=== PATIENT | female | born 1965 | race Two or more races ===

== ENCOUNTER → 2024-04-15 | Outpatient (CLI) | payer MEDICAID | END | disposition home or self-care (01) | LOC: XYW 10:06 | PROVIDERS: ATTEND Podiatrist | DX: I70.203 Unspecified atherosclerosis of native arteries of extremities, bilateral legs (principal); I77.9 Disorder of arteries and arterioles, unspecified | CPT/HCPCS: 93925 ==

== ENCOUNTER 2025-09-21 11:20 | Inpatient (IN) | payer MEDICAID ==
[~2025-09-21] VITALS: Ht 172.7 cm; Wt 126.8 kg
[~2025-09-21 11:20] MED LIST: PRED20TA2 PO
--- NOTE | 2025-09-21 11:40 | ECG ---
[facility] Test Date: 2025-09-21 Test Time: 11:28:01 Pat Name: ASHA GUY Department: [facility] ED Patient ID: [id number] Room: [address] [place] [address] Gender: F Rubber Block Layer: margarita : 1965 Requested By: DESTINY MERCADO Order Number: [id number] Reading MD: Christian Wilkerson Measurements Intervals [place] Rate: 98 P: -1 MO: 127 QRS: -28 QRSD: 85 T: 26 QT: 338 QTc: 432 Interpretive Statements Sinus rhythm Probable left atrial enlargement Inferior infarct, old Anterior infarct, old Electronically Signed On 09-22-2025 10:59:03 PST by Christian Wilkerson Please click the below link to view image of tracing.
--- NOTE | 2025-09-21 11:54 | ED.PDOC ---
GI ASSESSMENT HPI Comments This is a 60-year-old female brought in by ambulance with past medical history of diabetes type 1, hypertension, and hyperlipidemia presenting to the emergency department for chief complaint of GI bleed. EMS reports, patient is coming from home where family called due to patient being found down on the ground and covered in blood, following not hearing form the patient in approximately x2 days. Per EMS, upon arrival to the scene home was found to be filthy and patient appeared lethargic and unkept; EMS endorses ADS report being filled. Upon arrival to the emergency department, patient is hypotensive with a systolic blood pressure of 67 and has dark red feces between her lower extremities. Patient is a poor historian and no other past medical history, symptoms, or modifiers are obtainable at this time. Chief Complaint: GI Bleed Time Seen by MD: 11:45 Reviewed Notes: Nurses Notes, Manager School Notes, Medications, Allergies Allergies: Coded Allergies: No Known Drug Allergy (Verified Allergy, Unknown, 08/07/24) Home Meds Active Scripts Prednisone (Prednisone) 20 Mg Tab, 40 MG PO DAILY for 5 Days, #10 MG Prov:MARIO HUNT MD 07/06/24 Information Source: Patient, Emergency Med Personnel Mode of Arrival: EMS Timing: Days Duration: Since onset Prehospital treatment: None Quality: None Vomitus: None Stool: Other (bloody) Severity: Moderate Recent: None Recent Hx of: None Pain Location: None Modifying Factors: Nothing Associated sign and symptoms: Blood in Stool Past Medical History PAST MEDICAL HISTORY: DM, High Lipids, HTN Surgical History: Cholecystectomy, Hysterectomy CREDIT OFFICER History: Denies all CREDIT OFFICER Hx Family History Family History: Unknown Social History Smoker: Non-Smoker Alcohol: Denies ETOH Use Drugs: Denies Drug Use Lives In: Home Constitutional: denies: chills, diaphoresis, fatigue, fever, malaise, sweats, weakness, others EENTM: denies: blurred vision, double vision, ear bleeding, ear discharge, ear drainage, ear pain, ear ringing, eye pain, eye redness, hearing loss, mouth pain, mouth swelling, nasal discharge, nose bleeding, nose congestion, nose pain, photophobia, tearing, throat pain, throat swelling, voice changes, others Respiratory: denies: cough, hemoptysis, orthopnea, SOB at rest, shortness of breath, SOB with excertion, stridor, wheezing, others Cardiovascular: denies: chest pain, dizzy spells, diaphoresis, Dyspnea on exertion, edema, irregular heart beat, left arm pain, lightheadedness, palpitations, PND, syncope, others Gastrointestinal: denies: abdomen distended, abdominal pain, blood streaked bowels, constipated, diarrhea, dysphagia, difficulty swallowing, hematemesis, melena, nausea, poor appetite, poor fluid intake, rectal bleeding, rectal pain, vomiting, others Genitourinary: denies: abnormal vagina bleeding, burning, dyspareunia, dysuria, flank pain, frequency, hematuria, incontinence, pain, , vagina discharge, urgency, others Neurological: denies: dizziness, fainting, headache, left sided numbness, left sided weakness, numbness, paresthesia, pre-existing deficit, right sided numbness, right sided weakness, seizure, speech problems, tingling, tremors, w eakness, others Musculoskeletal: denies: back pain, gout, joint pain, joint swelling, muscle pain, muscle stiffness, neck pain, others Integumetry: denies: bruises, change in color, change in hair/nails, dryness, laceration, lesions, lumps, rash, wounds, others Allergic/Immunocompromised: denies: Difficulty Healing, Frequent Infections, Hives, Itching, others Hematologic/Lymphatic: denies: anemia, blood clots, easy bleeding, easy bruising, swollen glands, others All Other Systems: Reviewed and Negative Physical Exam General Appearance: Moderate Distress, Obese, Other (Poor hygiene with significant amount of stool and blood over the lower extremities) HEENT: Pale Conjuntivae (L), Pale Conjuntivae (R), Pharynx Normal, TMs Normal Neck: Full Range of Motion, Non-Tender, Normal, Normal Inspection Respiratory: Chest Non-Tender, Decreased Breath Sounds, No Accessory Muscle Use, Respiratory Distress Cardiovascular: No Edema, No JVD, No Murmur, No Gallop, Tachycardia Breast Exam: Deferred Gastrointestinal: No Organomegaly, Non Tender, No Pulsatile Mass, Normal Bowel Sounds, Soft Genitalia: Deferred Pelvic: Deferred Rectal: Deferred Extremities: No calf tenderness, Normal capillary refill, Pedal edema Musculoskeletal : Apperance: Normal 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 Was a procedure done?: No GI differential Dx Differential Diagnosis: Gastritis/PUD, Gastroenteritis, GI hemorrhage, Inflammatory BD X-Ray, Labs, Meds, VS Vital Signs Date Time Temp Pulse Resp B/P (MAP) Pulse Ox O2 Delivery O2 Flow Rate FiO2 09/21/25 16:00 59/40 09/21/25 14:41 37/22 09/21/25 12:53 Room Air* 0 21 09/21/25 11:54 98 09/21/25 11:49 96.3 97 17 133/109 (117) 99 96.3 09/21/25 11:28 98 09/21/25 11:20 97.6 98 18 67/ 94 97.6 Lab Test 09/21/25 16:24 09/21/25 15:40 09/21/25 15:09 Range/Units Troponin I High Sensitivity Pending 171 *H </=34 ng/L Blood Gas Specimen Type Arterial Blood Gas Sample Site Right radial Blood Gas Patient Temperature 37.0 Arterial Blood Date Drawn [id number] Arterial Blood pH 7.246 *L 7.350-7.450 Arterial Blood Partial Pressure CO2 19.6 *L 32.0-45.0 mmHg Arterial Blood Partial Pressure O2 104.8 83.0-108.0 mmHg Arterial Blood HCO3 8.3 L 21.0-28.0 mmol/L Arterial Blood Oxygen Saturation 97.1 94.0-98.0 % Arterial Blood Base Excess -16.0 L -2.0-3.0 mmol/L Arterial Blood Oxyhemoglobin 96.0 94.0-98.0 % Arterial Blood Carboxyhemoglobin 0.3 L 0.5-1.5 % Arterial Blood Methemoglobin 0.8 0.0-1.5 % Aristeo Test Yes Blood Gas Total Hemoglobin 19.20 *H 12.0-16.0 g/dL Blood Gas Modality Room air FiO2 % 21.0 Blood Gas Critical Value Read Back yes Blood Gas Notified Whom Blood Gas Notified Time [id number] Blood Gas Notified By senior systems developer eliz White Blood Count 26.4 H 4.4-10.8 10^3/uL Red Blood Count 5.53 H 4.0-5.20 10^6/uL Hemoglobin 17.1 H 12.2-16.2 g/dL Hematocrit 53.9 H 36.0-46.0 % Mean Corpuscular Volume 97.5 80.0-100.0 fL Mean Corpuscular Hemoglobin 30.9 28.0-32.0 pg Mean Corpuscular Hemoglobin Concent 31.7 L 32.0-36.0 g/dL Red Cell Distribution Width 17.5 H 11.8-14.3 % Platelet Count 176 140-450 10^3/uL Mean Platelet Volume 11.6 H 6.9-10.8 fL Neutrophils (%) (Auto) 89.3 H 37.0-80.0 % Lymphocytes (%) (Auto) 5.1 L 10.0-50.0 % Monocytes (%) (Auto) 5.5 0.0-12.0 % Eosinophils (%) (Auto) 0.0 0.0-7.0 % Basophils (%) (Auto) 0.1 0.0-2.0 % Neutrophils # (Auto) 23.6 H 1.6-8.6 10 ^3/uL Lymphocytes # (Auto) 1.3 0.4-5.4 10 ^3/uL Monocytes # (Auto) 1.5 H 0-1.3 10 ^3/uL Eosinophils # (Auto) 0 0-0.8 10 ^3/uL Basophils # (Auto) 0 0-0.2 10 ^3/uL Nucleated Red Blood Cells 0.8 % Prothrombin Time 12.5 H 9.3-11.8 sec Prothrombin Time INR 1.20 H 0.9-1.15 Activated Partial Thromboplast Time 25.1 24.5-34.5 SEC Sodium Level 162 *H 136-145 mmol/L Potassium Level 6.1 *H 3.5-5.1 mmol/L Chloride Level 117 H 98-107 mmol/L Carbon Dioxide Level 14 L 20-31 mmol/L Anion Gap 31 H 5-15 Blood Urea Nitrogen 168 *H 9-23 mg/dL Creatinine 10.81 *H 0.550-1.02 mg/dL Glomerular Filtration Rate Calc 4 >90 mL/min BUN/Creatinine Ratio 15.5 10.0-20.0 Serum Glucose 112 H 74-106 mg/dL Lactic Acid Level 7.2 *H 0.4-2.0 mmol/L Calcium Level 10.6 H 8.7-10.4 mg/dL Creatine Kinase 948 H 34-145 U/L Plasma/Serum Blood Alcohol < 3.0 <10 mg/dL Current Medications Medications (Trade) Dose Ordered Sig/Merry Route Start Time Stop Time Status Last Admin Sodium Chloride 1,000 ml @ 1,000 mls/hr Q1H ONCE IV 09/21/25 11:45 09/21/25 12:44 DC 09/21/25 13:32 Pantoprazole Sodium (Protonix) 40 mg ONCE ONCE IV 09/21/25 11:45 09/21/25 11:46 DC 09/21/25 13:32 Norepinephrine Bitartrate 250 ml @ 3.75 mls/hr Q24H IV 09/21/25 14:15 09/21/25 14:41 Calcium Gluconate/ Sodium Chloride 50 ml @ 100 mls/hr ONCE ONCE IV 09/21/25 16:30 09/21/25 16:59 DC 09/21/25 16:50 Dextrose 50 ml ONCE ONCE IV 09/21/25 16:30 09/21/25 16:31 DC 09/21/25 16:49 Insulin Human Regular (InsuLIN R) 5 units ONCE ONCE IV 09/21/25 16:30 09/21/25 16:31 DC 09/21/25 16:48 Sodium Bicarbonate 50 ml ONCE ONCE IV 09/21/25 16:30 09/21/25 16:31 DC 09/21/25 16:49 Sodium Bicarbonate 50 ml ONCE ONCE IV 09/21/25 16:30 09/21/25 16:31 DC 09/21/25 16:50 IV Hep-Lock was established The chest x-ray was done after the central line was placed. The patient remains hypotensive. The patient has been started on norepinephrine for hypotension. The patient's oxygen saturation is around 92-93% An ABG was done with a pH of 7.246/pCO2 of 19 and a PO2 of 104 The patient has a potassium that has elevated at 6.1 The BUN is 168 and the creatinine is 10.81 A Yap catheter was placed with no significant urine output. We are hydrating the patient with normal saline boluses. For the hyperkalemia, the patient was started on sodium bicarbonate, dextrose, insulin and calcium chloride Patient's CBC shows a white blood cell count of 26.4. The initial troponin level is 171 The patient will be admitted to the ICU. Images Reviewed?: Images reviewed and evaluated by me Time of 1ST Reevaluation: 12:15 Reevaluation 1ST: Unchanged Patient Education/Counseling: Diagnosis, Treatment Family Education/Counseling: No Family Present SEPSIS Sepsis Screen Date sepsis recognized/suspect: Sep 21, 2025 Time Sepsis recognized/suspect: 1137 Recent Procedure: No On Antibiotic Therapy: No Respiratory Rate >20: No Heart Rate >90: No Temp<36 C (96.8 F) or >38.3 C: No SBP <90 or MAP <65 mmHG: Yes New Acute Mental Status Change: No Is the patient on CPAP, BIPAP,: No Physician Orders Urinalysis (09/21/25 11:35) Drug Screen (09/21/25 11:35) Craps Manager (09/21/25 11:35) Pulse Oximetry (09/21/25 11:35) Blood Pressure (09/21/25 11:35) Heplock Iv (09/21/25 11:35) Blood Culture (09/21/25 11:35) Troponin-I Hs (09/21/25 12:35) Troponin-I Hs (09/21/25 14:35) Electrocardigram (09/21/25 12:35) Electrocardigram (09/21/25 14:35) Type And Screen (09/21/25 11:35) Ct Ab Pel Wo Con-No Oral Or Iv (09/21/25 11:39) Abg W/ Co-Ox (09/21/25 13:20) Insert Yap Catheter QSHIFT (09/21/25 13:20) Norepinephrine 8 Mg/250ml Kit (Levophed) (09/21/25 14:15) Chest Portable (09/21/25 14:42) Communication Order (09/21/25 16:00) Vital Signs Date Time Temp Pulse Resp B/P (MAP) Pulse Ox O2 Delivery O2 Flow Rate FiO2 09/21/25 16:00 59/40 09/21/25 14:41 37/22 09/21/25 12:53 Room Air* 0 21 09/21/25 11:54 98 09/21/25 11:49 96.3 97 17 133/109 (117) 99 96.3 09/21/25 11:28 98 09/21/25 11:20 97.6 98 18 67/ 94 97.6 Laboratory Tests Test 09/21/25 15:09 Lactic Acid Level 7.2 mmol/L (0.4-2.0) *H White Blood Count 26.4 10^3/uL (4.4-10.8) H Medications Medications Dose Ordered Sig/Merry Route Start Time Stop Time Status Last Admin Dose Admin Calcium Gluconate/ Sodium Chloride 50 ml @ 100 mls/hr ONCE ONCE IV 09/21/25 16:30 09/21/25 16:59 DC 09/21/25 16:50 Dextrose 50 ml ONCE ONCE IV 09/21/25 16:30 09/21/25 16:31 DC 09/21/25 16:49 Insulin Human Regular 5 units ONCE ONCE IV 09/21/25 16:30 09/21/25 16:31 DC 09/21/25 16:48 Norepinephrine Bitartrate 250 ml @ 3.75 mls/hr Q24H IV 09/21/25 14:15 09/21/25 14:41 Pantoprazole Sodium 40 mg ONCE ONCE IV 09/21/25 11:45 09/21/25 11:46 DC 09/21/25 13:32 Sodium Bicarbonate 50 ml ONCE ONCE IV 09/21/25 16:30 09/21/25 16:31 DC 09/21/25 16:49 Sodium Bicarbonate 50 ml ONCE ONCE IV 09/21/25 16:30 09/21/25 16:31 DC 09/21/25 16:50 Sodium Chloride 1,000 ml @ 1,000 mls/hr Q1H ONCE IV 09/21/25 11:45 09/21/25 12:44 DC 09/21/25 13:32 Departure 1 Departure Time of Disposition: 17:05 Impression: Primary Impression: Sepsis Qualified Codes: A41.9 - Sepsis, unspecified organism Additional Impressions: Altered level of consciousness Acute renal failure Qualified Codes: N17.1 - Acute kidney failure with acute cortical necrosis Hyperkalemia Disposition: ADMITTED INPATIENT Admit to: ICU Condition: Fair Critical Care Note Critical Care Time?: Yes (45 min-critical care time only) Stability Stability form required: Yes Unstable for transfer: ICU, CCU, PCU, SY (Intensive VS monitoring), Low BP (low high or fluctuating BP), May require CPR (possible rapid decline), ED Physician Assesment (Clinical assesment) Heart Score Heart Score: Heart Score Response (Comments) Value History N/A 0 EKG N/A 0 Age N/A 0 Risk Factors N/A 0 Troponin N/A 0 Total 0 I personally scribed for DESTINY MERCADO MD ([email or web address]) on 09/21/25 at 11:54. Electronically submitted by [employer] ([email or web address]). DESTINY MERCADO MD Sep 21, 2025 11:54
[2025-09-21] MEDS: PANTOPRAZOLE 40 MG/10 ML VIAL INJ IV ONE (13:32)
[2025-09-21] MEDS: SODIUM CHLORIDE 0.9% 1,000 ML IV ONE (13:32)
[2025-09-21] MEDS ORDERED: NOREPINEPHRINE 8 MG/250ML KIT 250 ML IV SCH (14:30)
[2025-09-21] MEDS: NOREPINEPHRINE 8 MG/250ML KIT 250 ML IV SCH (14:41)
--- NOTE | 2025-09-21 14:59 | DVHNC2 ---
Procedure - INTERNAL JUGULAR CENTRAL LINE (Central Line) PLACEMENT PROCEDURE NOTE: Consent: Yes.During the informed consent discussion regarding the procedure, or treatment, I explained the following to the patient/designee: a. Nature of the procedure or treatment and who will perform the procedure or treatment. b. Necessity for procedure and the possible benefits. c. Risks and complications (most common and serious). d. Alternative treatments and the risks, benefits and side effects of each (including no treatment). e. Likelihood of the patient achieving his/her goals without this procedure and surgery treatment. f. Problems that might occur during the recuperation. 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 Room prepared for procedure: Yes Dealer Sales Rep performed hand hygiene: Yes Maximal sterile barrier precaution: Mask/Eye shield, Sterile gown, Cap, Sterile gloves, Large sterile drape Skin Preparation: Chlorhexidine gluconate, Iodine. Skin preparation completely dry: Yes IJ Line Location: Right IJ PROCEDURE SUMMARY: The [facility] Central Line Insertion Practices form was completed by an independent healthcare worker starting with the first handwash prior to starting sterile technique. A time out was performed. My hands were washed immediately prior to the procedure. I wore a surgical cap, mask with protective eyewear, full gown and sterile gloves throughout the procedure. The patient was placed in Trendelenburg position. LEFT / RIGHT chest region was prepped using chlorhexidine scrub and draped in sterile fashion using a full drape and sterile probe cover and sterile gel employed. The medial and lateral heads of the sternocleidomastoid muscle were identified as was the carotid pulse. The Internal Jugular vein was identified using the ultrasound. Anesthesia was achieved over the vein using 1% lidocaine. Using real-time out of plane quentin nce, the introducer needle was inserted into the Internal Jugular vein under direct ultrasound visualization. Venous blood was withdrawn. The syringe was removed and a guidewire was advanced into the introducer needle. The guidewire was visualized in the Internal Jugular Vein by ultrasound in both short and long axis. A small incision was made at the skin surface with a scalpel and the introducer needle was exchanged for a dilator over the guidewire. After appropriate dilation was obtained, the dilator was exchanged over the wire for the central venous catheter. The wire was removed and the catheter was sutured to skin. A sterile sorbaview shield was placed over the catheter at the insertion site with date and time of placement. The patient tolerated the procedure without any hemodynamic compromise. At time of procedure completion, all ports aspirated and flushed properly. Checked pleural slide with bedside ultrasound without signs of pneumothorax. Post-procedure chest x-ray is pending at this time. Estimated blood loss is 10 ml (approx). Performed by Fortino Cespedes MD at bedside. Follow up CXR bedside to confirm. Supervised by the attending Dr. Tay. CXR satisfactory tip in the RA, Hemodynamically stable. OK to use the IJ line. FORTINO CESPEDES RESIDENT Sep 21, 2025 14:59
--- NOTE | 2025-09-21 15:13 | DVH ---
EXAM: XY CHEST PORTABLE CLINICAL HISTORY: CENTRAL LINE PLACEMENT VERIFICATION TECHNIQUE: Single AP view of the chest WID: COMPARISON: None FINDINGS: Lines and tubes: Right IJ central venous catheter with the tip projecting over the low SVC. Chest: The heart size and pulmonary vasculature is within normal limits. No pleural effusion, pneumothorax, or consolidation. Limited depth of inspiration. The osseous structures are grossly intact. Multilevel thoracic spondylosis. IMPRESSION: 1. No acute cardiopulmonary abnormality. 2. Right IJ central venous catheter with the tip projecting over the low SVC. No pneumothorax.
[2025-09-21] MEDS: NOREPINEPHRINE 8 MG/250ML KIT 250 ML IV ONE (15:15)
[2025-09-21 15:33] LABS: Hematocrit 53.9 % (36.0-46.0); Hemoglobin 17.1 g/dL (12.2-16.2); Mean Corpuscular Hemoglobin 30.9 pg (28.0-32.0); Mean Corpuscular Volume 97.5 fL (80.0-100.0); Nucleated Red Blood Cells % 0.8 %
[2025-09-21 15:43] LABS: Anion Gap 31 (5-15)
[2025-09-21 15:46] LABS: Base Excess -16.0 mmol/L (-2.0-3.0)
[2025-09-21 15:56] LABS: BUN/Creatinine Ratio 15.5 (10.0-20.0)
[2025-09-21 16:00] LABS: Calcium 10.6 mg/dL (8.7-10.4); Carbon Dioxide 14 mmol/L (20-31); Chloride 117 mmol/L (98-107); Glucose 112 mg/dL (74-106)
[2025-09-21 16:03] LABS: Blood Urea Nitrogen 168 mg/dL (9-23); Lactic Acid w/Reflex 7.2 mmol/L (0.4-2.0); Potassium 6.1 mmol/L (3.5-5.1); Sodium 162 mmol/L (136-145)
[2025-09-21 16:05] LABS: INR 1.2 (0.9-1.15); Partial Thromboplastin Time 25.1 SEC (24.5-34.5); Prothrombin Time 12.5 sec (9.3-11.8)
[2025-09-21] MEDS: InsuLIN REG 1unit/0.01ml Soln (100units/ml) IV ONE (16:48)
[2025-09-21] MEDS: SODIUM BICARB 8.4% 50Meq/50ml SYR Vial IV ONE ×2 (16:49→16:50)
[2025-09-21] MEDS: DEXTROSE (50%) 50ML SYRG IV ONE (16:49)
[2025-09-21] MEDS: CALCIUM GLUC 1,000mg/50ml-NS 50 ML IV ONE (16:50)
--- NOTE | 2025-09-21 18:42 | DVH ---
EXAM: CT CT AB PEL WO CON-NO ORAL OR IV INDICATION: pain TECHNIQUE: Volumetric multidetector CT images of the abdomen and pelvis were obtained without contrast. All CT scans at this facility use dose modulation, iterative reconstruction, and/or weight based dosing when appropriate to reduce radiation dose to as low as reasonably achievable. COMPARISON: None FINDINGS: [LOWER CHEST]: The partially visualized lung bases are clear without a pleural effusion. The cardiac size is normal without pericardial effusion. coronary artery calcifications. [LIVER]: Inconspicuous areas of hypoattenuation of the liver, incompletely characterized [GALLBLADDER AND BILIARY TREE]: Surgically absent. [SPLEEN]: Unremarkable. [PANCREAS]: Unremarkable. 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 No nephroureterolithiasis. [BLADDER]: Yap catheter decompression [REPRODUCTIVE ORGANS]: Unremarkable. [BOWEL/MESENTERY]: Stomach is normal. No CT evidence of bowel obstruction.normal appendix. Colon is largely decompressed. [ASCITES]: Absent [LYMPHADENOPATHY]: No pathologically enlarged lymph nodes by CT size criteria [VASCULATURE]: No aneurysmal dilatation. [ABDOMINAL WALL]: Unremarkable. [MUSCULOSKELETAL]: No acute fracture or aggressive focal osseous lesion. Multifocal degenerative change of the visualized spine. IMPRESSION: 1. No CT evidence of an acute abdominal/pelvic process. in regards to the clinical question, no hemoperitoneum. No definitive area of layering blood products along the gastrointestinal tract allowing for limitation without intravenous contrast. 2. Indeterminate areas of hypoattenuation of the liver, which may be artifactual however correlate for hepatic steatosis.
[2025-09-21 19:15] VITALS: PULSE 103; RESP 18
[2025-09-21] MEDS ORDERED: ONDANSETRON HCL 4 MG/2 ML VIAL IV PRN (19:45)
[2025-09-21] MEDS ORDERED: VANCOMYCIN PER PHARMACY 0 MG IV SCH (19:45)
[2025-09-21] MEDS ORDERED: MORPHINE SULFATE INJ 2 MG/ml SYRG IV PRN (19:45)
[2025-09-21] MEDS ORDERED: NITROGLYCERIN 0.4 MG SL TAB SL PRN (19:45)
[2025-09-21] MEDS ORDERED: DEXTROSE (50%) 50ML SYRG IV PRN (19:45)
[2025-09-21] MEDS ORDERED: MORPHINE SULFATE 4 MG/ML SYR/VIAL IV PRN (20:00)
[2025-09-21] MEDS: SODIUM CHLORIDE 0.9% 500 ML IV ONE ×2 (20:03→21:51)
[2025-09-21 20:07] LABS: Hematocrit 46.4 % (36.0-46.0); Hemoglobin 14.9 g/dL (12.2-16.2); Mean Corpuscular Hemoglobin 30.8 pg (28.0-32.0); Mean Corpuscular Volume 95.9 fL (80.0-100.0); Nucleated Red Blood Cells % 0.9 %
[2025-09-21] MEDS: VANCOMYCIN 1GM/250ML IV SCH (20:17)
[2025-09-21 20:35] LABS: Alanine Aminotransferase 32 U/L (7-40); Anion Gap 22 (5-15); BUN/Creatinine Ratio 16.9 (10.0-20.0); Calcium 9.0 mg/dL (8.7-10.4); Potassium 4.6 mmol/L (3.5-5.1); Total Protein 6.9 g/dL (5.7-8.2)
[2025-09-21 20:36] LABS: Bilirubin, Total 0.8 mg/dL (0.2-1.0)
[2025-09-21] MEDS: SOD CHL 0.45% 1,000 ML IV ONE (20:36)
[2025-09-21 20:39] LABS: Alkaline Phosphatase 132 U/L (46-116); Carbon Dioxide 16 mmol/L (20-31); Chloride 125 mmol/L (98-107); Glucose 146 mg/dL (74-106)
[2025-09-21 20:40] LABS: Albumin 3.0 g/dL (3.2-4.8); Lactic Acid w/Reflex 4.8 mmol/L (0.4-2.0)
[2025-09-21 20:41] LABS: Blood Urea Nitrogen 144 mg/dL (9-23); Sodium 163 mmol/L (136-145)
[2025-09-21] MEDS: PIPERACILLIN-TAZOB 3.375GM 100 ML IV SCH (22:15)
[2025-09-21] MEDS: PHENYLEPHRINE IV 250 ML IV SCH (22:27)
[2025-09-22] VITALS (100 sets, daily range): BP systolic 70–127; BP diastolic 42–82; PULSE 68–120; RESP 11–26; TEMP 97.8–98.9; O2SAT 64–100
[2025-09-22] MEDS: InsuLIN REG 1unit/0.01ml Soln (100units/ml) SC SCH
[2025-09-22] MEDS: ACCU-CHEK COMFORT CURVE STRIP VI SCH
[2025-09-22] MEDS: SODIUM CHLORIDE 0.9% 500 ML IV ONE (01:00)
--- NOTE | 2025-09-22 01:11 | DVHHP2 ---
History of Present Illness Reason for Visit: Altered mental status History of Present Illness 60-year-old female presents for evaluation of altered mental status. Patient is lethargic oriented x2. Patient was found on the floor covered in bloody stool and confused by family members. Family had not heard from her in the past two days. Denies chest pain or shortness for breath. No unilateral weakness or slurred speech noted. Past Medical History Hypertension, diabetes Past Surgical History Hysterectomy cholecystectomy Family History Noncontributory Smoke: No ALCOHOL: none Drugs: None Lives: with Family Review of Systems Review of Systems Review of systems are currently negative otherwise addressed in HPI. Allergies: Coded Allergies: No Known Drug Allergy (Verified Allergy, Unknown, 08/07/24) Medications Current Medications Medications Dose Ordered Sig/Merry Route Start Time Stop Time Status Last Admin Dose Admin Norepinephrine Bitartrate 250 ml @ 3.75 mls/hr Q24H IV 09/21/25 14:15 09/21/25 14:41 3.75 MLS/HR Piperacillin Sod/ Tazobactam Sod 100 ml @ 25 mls/hr Q12HR IV 09/21/25 22:00 09/21/25 22:15 25 MLS/HR Vancomycin HCl 0 ml @ 0 mls/hr PER PHARMACY IV 09/21/25 19:45 UNV Pantoprazole Sodium 40 mg DAILY IV 09/22/25 10:00 Diagnostic Test (Pha) 1 strip Q6HR 09/22/25 00:00 09/22/25 00:00 1 STRIP Insulin Human Regular Q6HR SC 09/22/25 00:00 Dextrose 50 ml UD PRN IV 09/21/25 19:45 Ondansetron HCl 4 mg Q4HP PRN IV 09/21/25 19:45 Nitroglycerin 0.4 mg Q5MINP PRN SL 09/21/25 19:45 Morphine Sulfate 2 mg Q30M PRN IV 09/21/25 19:45 UNV Morphine Sulfate 2 mg Q30M PRN IV 09/21/25 20:00 Phenylephrine HCl 250 ml @ 30 mls/hr Q8H20M IV 09/21/25 22:15 09/21/25 22:27 30 MLS/HR Exam Vital Signs Vital Signs Date Time Temp Pulse Resp B/P (MAP) Pulse Ox O2 Delivery O2 Flow Rate FiO2 09/22/25 00:49 21 100 Room Air* 0 21 09/22/25 00:45 120 94/59 (71) 09/22/25 00:00 98.9 98.9 Exam Gen: 60-year-old female in moderate distress Skin: Warm, dry, normal color and texture, no rash. HEENT: Normocephalic atraumatic, mucous membranes moist and pink. Neck: Cervical and supraclavicular nodes normal without enlargement, trachea is midline, thyroid gland is normal without masses. Pulmonary: Clear to auscultation and percussion bilaterally. Cardiac: Regular rate and rhythm. No murmur Abdomen: Soft, nontender, nondistended, bowel sounds present all 4 quadrants, no guarding, no rigidity, no organomegaly. Extremities: No cyanosis, clubbing, no edema Neuro: Lethargic Labs/Xrays ORDERING PHYSICIAN: DESTINY MERCADO MD PROCEDURE(s): ABPL - CT AB PEL WO CON-NO ORAL OR IV REASON: pain ORDER NUMBER(s): [id number], ACCESSION NUMBER(s): [id number] EXAM: CT CT AB PEL WO CON-NO ORAL OR IV INDICATION: pain TECHNIQUE: Volumetric multidetector CT images of the abdomen and pelvis were obtained without contrast. All CT scans at this facility use dose modulation, iterative reconstruction, and/or weight based dosing when appropriate to reduce radiation dose to as low as reasonably achievable. COMPARISON: None FINDINGS: [LOWER CHEST]: The partially visualized lung bases are clear without a pleural effusion. The cardiac size is normal without pericardial effusion. coronary artery calcifications. [LIVER]: Inconspicuous areas of hypoattenuation of the liver, incompletely characterized [GALLBLADDER AND BILIARY TREE]: Surgically absent. [SPLEEN]: Unremarkable. [PANCREAS]: Unremarkable. 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 No nephroureterolithiasis. [BLADDER]: Yap catheter decompression [REPRODUCTIVE ORGANS]: Unremarkable. [BOWEL/MESENTERY]: Stomach is normal. No CT evidence of bowel obstruction.normal appendix. Colon is largely decompressed. [ASCITES]: Absent [LYMPHADENOPATHY]: No pathologically enlarged lymph nodes by CT size criteria [VASCULATURE]: No aneurysmal dilatation. [ABDOMINAL WALL]: Unremarkable. [MUSCULOSKELETAL]: No acute fracture or aggressive focal osseous lesion. Multifocal degenerative change of the visualized spine. IMPRESSION: 1. No CT evidence of an acute abdominal/pelvic process. in regards to the clinical question, no hemoperitoneum. No definitive area of layering blood products along the gastrointestinal tract allowing for limitation without intravenous contrast. 2. Indeterminate areas of hypoattenuation of the liver, which may be artifactual however correlate for hepatic steatosis. RING PHYSICIAN: DESTINY MERCADO MD PROCEDURE(s): CXRP - CHEST PORTABLE REASON: CENTRAL LINE PLACEMENT VERIFICATION ORDER NUMBER(s): [id number], ACCESSION NUMBER(s): [id number] EXAM: XY CHEST PORTABLE CLINICAL HISTORY: CENTRAL LINE PLACEMENT VERIFICATION TECHNIQUE: Single AP view of the chest WID: COMPARISON: None FINDINGS: Lines and tubes: Right IJ central venous catheter with the tip projecting over the low SVC. Chest: The heart size and pulmonary vasculature is within normal limits. No pleural effusion, pneumothorax, or consolidation. Limited depth of inspiration. The osseous structures are grossly intact. Multilevel thoracic spondylosis. IMPRESSION: 1. No acute cardiopulmonary abnormality. 2. Right IJ central venous catheter with the tip projecting over the low SVC. No pneumothorax. Labs Test 09/21/25 22:51 09/21/25 19:48 09/21/25 15:40 09/21/25 15:09 Range/Units Stool Occult Blood Positive Negative Stool Occult Blood Sample #3 Negative White Blood Count 24.4 H 4.4-10.8 10^3/uL Red Blood Count 4.84 4.0-5.20 10^6/uL Hemoglobin 14.9 12.2-16.2 g/dL Hematocrit 46.4 #H 36.0-46.0 % Mean Corpuscular Volume 95.9 80.0-100.0 fL Mean Corpuscular Hemoglobin 30.8 28.0-32.0 pg Mean Corpuscular Hemoglobin Concent 32.1 32.0-36.0 g/dL Red Cell Distribution Width 16.4 H 11.8-14.3 % Platelet Count 159 140-450 10^3/uL Mean Platelet Volume 11.3 H 6.9-10.8 fL Neutrophils (%) (Auto) 92.1 H 37.0-80.0 % Lymphocytes (%) (Auto) 3.0 L 10.0-50.0 % Monocytes (%) (Auto) 4.6 0.0-12.0 % Eosinophils (%) (Auto) 0.1 0.0-7.0 % Basophils (%) (Auto) 0.2 0.0-2.0 % Neutrophils # (Auto) 22.5 H 1.6-8.6 10 ^3/uL Lymphocytes # (Auto) 0.7 0.4-5.4 10 ^3/uL Monocytes # (Auto) 1.1 0-1.3 10 ^3/uL Eosinophils # (Auto) 0 0-0.8 10 ^3/uL Basophils # (Auto) 0 0-0.2 10 ^3/uL Nucleated Red Blood Cells 0.9 % Sodium Level 163 *H 136-145 mmol/L Potassium Level 4.6 3.5-5.1 mmol/L Chloride Level 125 H 98-107 mmol/L Carbon Dioxide Level 16 L 20-31 mmol/L Anion Gap 22 H 5-15 Blood Urea Nitrogen 144 #*H 9-23 mg/dL Creatinine 8.52 H 0.550-1.02 mg/dL Glomerular Filtration Rate Calc 5 >90 mL/min BUN/Creatinine Ratio 16.9 10.0-20.0 Serum Glucose 146 H 74-106 mg/dL Lactic Acid Level 4.8 *H 0.4-2.0 mmol/L Calcium Level 9.0 8.7-10.4 mg/dL Total Bilirubin 0.8 0.2-1.0 mg/dL Aspartate Amino Transferase (AST) 144 H 13-40 U/L Alanine Aminotransferase (ALT) 32 7-40 U/L Alkaline Phosphatase 132 H 46-116 U/L Troponin I High Sensitivity 282 *H </=34 ng/L Total Protein 6.9 5.7-8.2 g/dL Albumin 3.0 L 3.2-4.8 g/dL Blood Gas Specimen Type Arterial Blood Gas Sample Site Right radial Blood Gas Patient Temperature 37.0 Arterial Blood Date Drawn [id number] Arterial Blood pH 7.246 *L 7.350-7.450 Arterial Blood Partial Pressure CO2 19.6 *L 32.0-45.0 mmHg Arterial Blood Partial Pressure O2 104.8 83.0-108.0 mmHg Arterial Blood HCO3 8.3 L 21.0-28.0 mmol/L Arterial Blood Oxygen Saturation 97.1 94.0-98.0 % Arterial Blood Base Excess -16.0 L -2.0-3.0 mmol/L Arterial Blood Oxyhemoglobin 96.0 94.0-98.0 % Arterial Blood Carboxyhemoglobin 0.3 L 0.5-1.5 % Arterial Blood Methemoglobin 0.8 0.0-1.5 % Aristeo Test Yes Blood Gas Total Hemoglobin 19.20 *H 12.0-16.0 g/dL Blood Gas Modality Room air FiO2 % 21.0 Blood Gas Critical Value Read Back yes Blood Gas Notified Whom Blood Gas Notified Time [id number] Blood Gas Notified By fur mixer operator eliz Prothrombin Time 12.5 H 9.3-11.8 sec Prothrombin Time INR 1.20 H 0.9-1.15 Activated Partial Thromboplast Time 25.1 24.5-34.5 SEC Creatine Kinase 948 H 34-145 U/L Plasma/Serum Blood Alcohol < 3.0 <10 mg/dL SEPSIS Sepsis Screen Date sepsis recognized/suspect: Sep 21, 2025 Time Sepsis recognized/suspect: 1914 Recent Procedure: No On Antibiotic Therapy: No Respiratory Rate >20: No Heart Rate >90: Yes Temp<36 C (96.8 F) or >38.3 C: No SBP <90 or MAP <65 mmHG: No New Acute Mental Status Change: No Is the patient on CPAP, BIPAP,: No Physician Orders Sod Chl 0.45% (Sodium Chloride 0.45% Via (09/21/25 19:45) Piperacillin-Tazob 3.375gm (Zosyn 3.375g (09/21/25 22:00) Vancomycin Per Pharmacy (09/21/25 19:45) Pantoprazole (Protonix) (09/22/25 10:00) *Dr. Brian [facility] (09/21/25 19:35) Glucose Blood (Accu-Chek Comfort Curve T (09/22/25 00:00) Insulin R (Human) (Insulin R) (09/22/25 00:00) Dextrose 50% Syringe (09/21/25 19:45) Admit (09/21/25 19:35) Ondansetron Hcl (Zofran) (09/21/25 19:45) Complete Blood Count (09/22/25 04:00) Comprehensive Metabolic Panel (09/22/25 04:00) Condition: Unstable (09/21/25 19:35) Maintain Bed Rest (09/21/25 19:35) Sequential Compression Device (09/21/25 ) Nitroglycerin Sublingual (Ntrostat Subli (09/21/25 19:45) Stat Ekg For Chest Pain (09/21/25 19:35) Notify Md Of Changes From Base (09/21/25 19:35) Remote Sensing Program Manager For 24 Hours (09/21/25:35) Emergency Dysrhythmia Protocol (09/21/25:35) Rhythm Strips Once Every Shift (09/21/25 19:35) Oxygen By Nasal Cannula (09/21/25:35) Morphine Sulfate Injection (09/21/25 20:00) Phenylephrine Iv (Phenylephrine/Ns) (09/21/25 22:15) * [facility] (09/22/25 00:50) Sodium Chloride 0.9% (09/22/25 01:00) Sodium (09/22/25 06:00) Sodium (09/22/25 12:00) Sodium (09/22/25 18:00) Gastric Occult Blood (09/22/25 00:50) Vital Signs Date Time Temp Pulse Resp B/P (MAP) Pulse Ox O2 Delivery O2 Flow Rate FiO2 09/22/25 00:49 21 100 Room Air* 0 21 09/22/25 00:45 120 22 94/59 (71) 100 09/22/25 00:31 118 21 100 Room Air* 0 21 09/22/25 00:30 120 22 86/68 (74) 100 09/22/25 00:15 119 21 84/60 (68) 100 09/22/25 00:00 98.9 110 20 75/54 (61) 100 98.9 09/21/25 22:57 98.5 110 18 92/59 (70) 100 98.5 09/21/25 22:45 113 27 78/57 (64) 100 11/9/25 22:30 112 27 92/59 (70) 100 09/21/25 22:27 88/61 09/21/25 22:15 113 25 88/61 (70) 98 09/21/25 22:00 78/57 09/21/25 22:00 98.5 113 27 78/57 (64) 100 98.5 09/21/25 21:45 111 27 73/53 (60) 95 09/21/25 21:30 113 24 86/53 (64) 95 09/21/25 21:15 110 24 97/52 (67) 95 09/21/25 21:00 112 24 97/55 (69) 95 09/21/25 21:00 97/55 09/21/25 20:45 110 22 108/42 (64) 100 09/21/25 20:30 110 25 71/40 (50) 100 09/21/25 20:15 105 22 106/61 (76) 100 09/21/25 20:00 95/57 09/21/25 20:00 106 24 95/57 (70) 100 09/21/25 19:45 111 25 87/63 (71) 100 09/21/25 19:30 115 12 101/65 (77) 100 09/21/25 19:15 120/43 09/21/25 19:15 103 18 Room Air* 0 21 09/21/25 19:15 98.4 103 9 120/43 (68) 98.4 09/21/25 19:00 103 18 106/65 (79) 09/21/25 18:45 105 20 95/74 (81) 99 09/21/25 17:52 108 09/21/25 17:49 09/21/25 17:37 97.5 108 18 98/50 (66) 97.5 09/21/25 17:18 117 22 94/58 (70) 92 Laboratory Tests Test 09/21/25 15:09 09/21/25 17:36 09/21/25 19:48 Lactic Acid Level 7.2 mmol/L (0.4-2.0) *H 6.3 mmol/L (0.4-2.0) *H 4.8 mmol/L (0.4-2.0) *H White Blood Count 26.4 10^3/uL (4.4-10.8) H 24.4 10^3/uL (4.4-10.8) H Medications Medications Dose Ordered Sig/Merry Route Start Time Stop Time Status Last Admin Dose Admin Calcium Gluconate/ Sodium Chloride 50 ml @ 100 mls/hr ONCE ONCE IV 09/21/25 16:30 09/21/25 16:59 DC 09/21/25 16:50 100 MLS/HR Dextrose 50 ml ONCE ONCE IV 09/21/25 16:30 09/21/25 16:31 DC 09/21/25 16:49 50 ML Diagnostic Test (Pha) 1 strip Q6HR 09/22/25 00:00 09/22/25 00:00 1 STRIP Insulin Human Regular 5 units ONCE ONCE IV 09/21/25 16:30 09/21/25 16:31 DC 09/21/25 16:48 5 UNITS Norepinephrine Bitartrate 250 ml @ 3.75 mls/hr Q24H IV 09/21/25 14:15 09/21/25 14:41 3.75 MLS/HR Phenylephrine HCl 250 ml @ 30 mls/hr Q8H20M IV 09/21/25 22:15 09/21/25 22:27 30 MLS/HR Piperacillin Sod/ Tazobactam Sod 100 ml @ 25 mls/hr Q12HR IV 09/21/25 22:00 09/21/25 22:15 25 MLS/HR Sodium Bicarbonate 50 ml ONCE ONCE IV 09/21/25 16:30 09/21/25 16:31 DC 09/21/25 16:49 50 ML Sodium Bicarbonate 50 ml ONCE ONCE IV 09/21/25 16:30 09/21/25 16:31 DC 09/21/25 16:50 50 ML Sodium Chloride 500 ml @ 500 mls/hr Q1H ONCE IV 09/22/25 01:00 09/22/25 01:59 09/22/25 01:00 500 MLS/HR Sodium Chloride 500 ml @ 500 mls/hr Q1H ONCE IV 09/21/25 19:45 09/21/25 20:44 DC 09/21/25 20:03 500 MLS/HR Sodium Chloride 500 ml @ 500 mls/hr Q1H ONCE IV 09/21/25 21:30 09/21/25 22:29 DC 09/21/25 21:51 500 MLS/HR Sodium Chloride 1,000 ml @ 125 mls/hr Q8H ONCE IV 09/21/25 19:45 09/22/25 03:44 09/21/25 20:36 125 MLS/HR Vancomycin HCl 250 ml @ 250 mls/hr Q90M IV 09/21/25 20:00 09/21/25 22:29 DC 09/21/25 21:35 250 MLS/HR Assessment/Plan Assessment/Plan Assessment Metabolic encephalopathy Questionable sepsis Possible rhabdomyolysis Hypernatremia Plan Admit the patient to ICU to the hospitalist Continue vasoactive drips Zosyn/vancomycin CT abdomen pending Maintenance IV fluids Nephrology consultation Continue treatment per orders Total critical care time excluding procedures performed this 55 minutes. Plan discussed with: Other My Orders Orders - BEATRIZ NAYLOR Procedure Category Date Status Time Sod Chl 0.45% (Sodium PHA 09/21/25 In Process Chloride 0.45% Via 19:45 Piperacillin-Tazob PHA 09/21/25 In Process 3.375gm (Zosyn 3.375g 22:00 Vancomycin Per PHA 09/21/25 Pending Pharmacy 19:45 Pantoprazole PHA 09/22/25 In Process (Protonix) 10:00 *Dr. [facility] CONS 09/21/25 Transmitted [place] 19:35 Glucose Blood PHA 09/22/25 In Process (Accu-Chek Comfort 00:00 Insulin R (Human) PHA 09/22/25 In Process (Insulin R) 00:00 Dextrose 50% Syringe PHA 09/21/25 In Process 19:45 Admit ADMIT 09/21/25 Transmitted 19:35 Ondansetron Hcl PHA 09/21/25 In Process (Zofran) 19:45 Complete Blood Count LAB 09/22/25 Logged 04:00 Comprehensive LAB 09/22/25 Logged Metabolic Panel 04:00 Condition: Unstable ROLLY 09/21/25 In Process 19:35 Maintain Bed Rest ROLLY 09/21/25 In Process 19:35 Sequential ROLLY 09/21/25 In Process Compression Device Nitroglycerin PHA 09/21/25 In Process Sublingual (Ntrostat 19:45 Stat Ekg For Chest ROLLY 09/21/25 In Process Pain 19:35 Notify Of Changes ROLLY 09/21/25 In Process From Base 19:35 Remote Sensing Program Manager For ROLLY 09/21/25 In Process 24 Hours 19:35 Emergency Dysrhythmia ROLLY 09/21/25 In Process Protocol 19:35 Rhythm Strips Once ROLLY 09/21/25 In Process Every Shift 19:35 Oxygen By Nasal RT 09/21/25 Transmitted Cannula 19:35 Morphine Sulfate PHA 09/21/25 In Process Injection 20:00 Phenylephrine Iv PHA 09/21/25 In Process (Phenylephrine/Ns) 22:15 * [facility] Web [facility] CONS 09/22/25 Transmitted 00:50 Sodium Chloride 0.9% PHA 09/22/25 In Process 01:00 Sodium LAB 09/22/25 Logged 06:00 Sodium LAB 09/22/25 Logged 12:00 Sodium LAB 09/22/25 Logged 18:00 Gastric Occult Blood LAB 09/22/25 Logged 00:50 Date of Service: Sep 22, 2025 Billing Provider: BEATRIZ NAYLOR Common Visit Codes: [id number] CARE 30-74 MIN BEATRIZ NAYLOR Sep 22, 2025 01:11
--- NOTE | 2025-09-22 03:04 | DVH ---
Exam: CT CT AB PEL WO CON-NO ORAL OR IV History: GI bleed Comparison Study: CT CT AB PEL WO CON-NO ORAL OR IV on DOS: 09/21/25 Technique: Multidetector spiral CT of the abdomen was performed from lung bases to pubic symphysis. Imaging was performed without IV contrast. Axial, coronal and sagittal multiplanar reformats were obtained from the axial data set by the technologist. Radiation Dose : 1. Abdomen/Pelvis: CTDIvol 25.62 mGy, DLP 1533.82 mGy*cm. Findings: Evaluation of solid organs is limited due to lack of intravenous contrast use. Lung Bases: No acute or significant lung base finding. Normal heart size. No pleural or pericardial effusion. Liver: The liver is normal in size. No focal lesions. Gallbladder and Biliary Tree: Status post cholecystectomy. Spleen: Unremarkable Pancreas: The pancreas is grossly normal in appearance. Adrenal Glands: 2.5 cm probable right adrenal myelolipoma. Normal-appearing Left adrenal gland. Kidneys: Kidneys are grossly normal without calculi or hydronephrosis. Bladder: Grossly unremarkable for degree of distention. Yap catheter. Bowel: The stomach is grossly normal in appearance. Small bowel and colon are normal in caliber and distribution. The appendix is not visualized; however, no secondary findings of acute appendicitis identified. Ascites: Absent Lymphadenopathy: No mesenteric, retroperitoneal or periportal lymphadenopathy. Abdominal Wall and Mesentery: Unremarkable. Vasculature: The visualized abdominal aorta is normal in size and caliber. Evaluation of abdominal and pelvic vessels is limited due to lack of intravenous contrast. Pelvic Organs: Unremarkable Musculoskeletal: No aggressive focal bony lesions, acute fractures or dislocation. IMPRESSION: 1. No acute abdominal or pelvic findings. 2. Probable right adrenal myelolipoma. Radiation optimization: All CT scans at this facility use at least one of these dose optimization techniques: automated exposure control mA and/or kV adjustment per patient size (includes targeted exams where dose is matched to clinical indication) or iterative reconstruction.
[2025-09-22 03:15] LABS: Urine Protein, UAD 1+ (Negative)
[2025-09-22 03:29] LABS: Amphetamine Screen, Urine Neg (NEGATIVE); Barbiturate Scree,Urine Neg (NEGATIVE); Benzodiazephine Screen, Urine Neg (NEGATIVE); Cannabinoid Screen, Urine Neg (NEGATIVE); Cocaine Screen, Urine Neg (NEGATIVE); Opiate Scree,Urine Neg (NEGATIVE); Phencyclidine Screen, Urine Neg (NEGATIVE)
[2025-09-22] MEDS: PANTOPRAZOLE 40 MG/10 ML VIAL INJ IV SCH (10:55)
[2025-09-22] MEDS: D5W 5% 1,000 ML IV SCH (10:55)
[2025-09-22 10:57] LABS: Alanine Aminotransferase 29 U/L (7-40); Anion Gap 21 (5-15); Potassium 4.4 mmol/L (3.5-5.1); Total Protein 6.2 g/dL (5.7-8.2)
[2025-09-22 10:58] LABS: Bilirubin, Total 0.6 mg/dL (0.2-1.0)
[2025-09-22 11:01] LABS: Albumin 2.7 g/dL (3.2-4.8); Alkaline Phosphatase 131 U/L (46-116); Calcium 8.5 mg/dL (8.7-10.4); Carbon Dioxide 16 mmol/L (20-31); Chloride 122 mmol/L (98-107); Glucose 137 mg/dL (74-106); Sodium 159 mmol/L (136-145)
[2025-09-22 11:05] LABS: BUN/Creatinine Ratio 18.6 (10.0-20.0)
[2025-09-22 11:07] LABS: Lactic Acid w/Reflex 3.1 mmol/L (0.4-2.0)
[2025-09-22 11:10] LABS: Blood Urea Nitrogen 152 mg/dL (9-23)
[2025-09-22 13:46] LABS: Hematocrit 41.4 % (36.0-46.0); Hemoglobin 13.0 g/dL (12.2-16.2); Mean Corpuscular Hemoglobin 30.7 pg (28.0-32.0); Mean Corpuscular Volume 97.8 fL (80.0-100.0); Nucleated Red Blood Cells % 0.5 %
[2025-09-22 14:12] LABS: Lactic Acid w/Reflex 2.5 mmol/L (0.4-2.0)
[2025-09-22] MEDS: MICAFUNGIN SODIUM 100 MG in SODIUM CHL 0.9% 100 ML IV ONE (16:23)
--- NOTE | 2025-09-22 17:43 | DVHINCON2 ---
Date of service: Sep 22, 2025 Reason for Consultation zeinab History of Present Illness 60 years old female with unknown exact medical conditions presented with chief complaints of altered mental status covered in bloody stool and maggots patient is very altered HPI on record shows she has medical history hypertension and diabetes had history of hysterectomy and cholecystectomy unknown exactly Patient seen and examined in ICU she is on Levophed 26 mcg altered she has open wounds on her abdomen Past Medical History As per HPI Allergies: Coded Allergies: No Known Drug Allergy (Verified Allergy, Unknown, 08/07/24) Home Meds Active Scripts Prednisone (Prednisone) 20 Mg Tab, 40 MG PO DAILY for 5 Days, #10 MG Prov:MARIO HUNT MD 07/06/24 Current Medications Current Medications Medications (Trade) Dose Ordered Sig/Merry Route PRN Reason Start Time Stop Time Status Last Admin Piperacillin Sod/ Tazobactam Sod 100 ml @ 25 mls/hr Q12HR IV 09/21/25 22:00 09/22/25 10:55 Vancomycin HCl 0 ml @ 0 mls/hr PER PHARMACY IV 09/21/25 19:45 Pantoprazole Sodium (Protonix) 40 mg DAILY IV 09/22/25 10:00 09/22/25 10:55 Diagnostic Test (Pha) (Accu-Chek Comfort Curve T) 1 strip Q6HR 09/22/25 00:00 09/22/25 12:14 Insulin Human Regular (InsuLIN R) Q6HR SC 09/22/25 00:00 09/22/25 12:33 Dextrose 50 ml UD PRN IV Blood Sugar LESS THAN 60 09/21/25 19:45 Ondansetron HCl (Zofran) 4 mg Q4HP PRN IV NAUSEA / VOMITING 09/21/25 19:45 Nitroglycerin (Ntrostat Sublingual) 0.4 mg Q5MINP PRN SL FOR CHEST PAIN 09/21/25 19:45 09/22/25 10:20 DC Morphine Sulfate 2 mg Q30M PRN IV FOR CHEST PAIN 09/21/25 19:45 UNV Morphine Sulfate 2 mg Q30M PRN IV CHEST PAIN 09/21/25 20:00 09/22/25 10:20 DC Vancomycin HCl 250 ml @ 250 mls/hr Q90M IV 09/21/25 20:00 09/21/25 22:29 DC 09/21/25 21:35 Phenylephrine HCl 250 ml @ 30 mls/hr Q8H20M IV 09/21/25 22:15 09/22/25 10:20 DC 09/21/25 22:27 Dextrose 1,000 ml @ 150 mls/hr Q6H40M IV 09/22/25 10:00 09/22/25 16:26 Micafungin Sodium 100 mg/Sodium Chloride 100 ml @ 100 mls/hr DAILY IV 09/23/25 10:00 Review of Systems Unable to obtain H&P Exam Vital Signs/I&O Vital Sign Date Time Temp Pulse Resp B/P (MAP) Pulse Ox O2 Delivery O2 Flow Rate FiO2 09/22/25 16:00 98.2 78 15 94/56 (69) 98 98.2 09/22/25 16:00 Room Air* 0 21 Intake and Output 09/21/25 09/22/25 19:00 07:00 Intake Total 1000 ml 1712.45 ml Output Total 5 ml Balance 1000 ml 1707.45 ml Intake IV Total 1000 ml 1712.45 ml Output Urine Total 5 ml # Bowel Movements 2 Physical Exam Patient altered mental status Scratches and open wounds on abdomen with maggots Fair bilateral air entry Labs/Diagnostic Data Labs/Diagnostic Data Laboratory Tests Test 09/22/25 12:56 09/22/25 12:16 09/22/25 09:20 09/22/25 05:26 Range/Units White Blood Count 21.9 H 4.4-10.8 10^3/uL Red Blood Count 4.23 4.0-5.20 10^6/uL Hemoglobin 13.0 12.2-16.2 g/dL Hematocrit 41.4 # 36.0-46.0 % Mean Corpuscular Volume 97.8 80.0-100.0 fL Mean Corpuscular Hemoglobin 30.7 28.0-32.0 pg Mean Corpuscular Hemoglobin Concent 31.4 L 32.0-36.0 g/dL Red Cell Distribution Width 16.9 H 11.8-14.3 % Platelet Count 106 L 140-450 10^3/uL Mean Platelet Volume 10.9 H 6.9-10.8 fL Neutrophils (%) (Auto) 89.3 H 37.0-80.0 % Lymphocytes (%) (Auto) 4.1 L 10.0-50.0 % Monocytes (%) (Auto) 6.4 0.0-12.0 % Eosinophils (%) (Auto) 0.1 0.0-7.0 % Basophils (%) (Auto) 0.1 0.0-2.0 % Neutrophils # (Auto) 19.6 H 1.6-8.6 10 ^3/uL Lymphocytes # (Auto) 0.9 0.4-5.4 10 ^3/uL Monocytes # (Auto) 1.4 H 0-1.3 10 ^3/uL Eosinophils # (Auto) 0 0-0.8 10 ^3/uL Basophils # (Auto) 0 0-0.2 10 ^3/uL Nucleated Red Blood Cells 0.5 % Sodium Level 157 H 159 H 136-145 mmol/L Lactic Acid Level 2.5 *H 3.1 *H 0.4-2.0 mmol/L Troponin I High Sensitivity 482 *H 519 *H </=34 ng/L POC Glucose 154 H 112 H 70-106 mg/dl Potassium Level 4.4 3.5-5.1 mmol/L Chloride Level 122 H 98-107 mmol/L Carbon Dioxide Level 16 L 20-31 mmol/L Anion Gap 21 H 5-15 Blood Urea Nitrogen 152 *H 9-23 mg/dL Creatinine 8.17 H 0.550-1.02 mg/dL Glomerular Filtration Rate Calc 5 >90 mL/min BUN/Creatinine Ratio 18.6 10.0-20.0 Serum Glucose 137 H 74-106 mg/dL Calcium Level 8.5 L 8.7-10.4 mg/dL Total Bilirubin 0.6 0.2-1.0 mg/dL Aspartate Amino Transferase (AST) 158 H 13-40 U/L Alanine Aminotransferase (ALT) 29 7-40 U/L Alkaline Phosphatase 131 H 46-116 U/L Creatine Kinase 2160 H 34-145 U/L Total Protein 6.2 5.7-8.2 g/dL Albumin 2.7 L 3.2-4.8 g/dL Random Vancomycin Level 28.2 H 5-10 ug/mL Test 09/22/25 02:45 09/21/25 22:51 09/21/25 19:48 09/21/25 17:36 Range/Units Urine Color [place] H Yellow Urine Clarity Turbid H Clear Urine pH 5.0 5.0-9.0 Urine Specific [place] 1.026 1.001-1.035 Urine Protein 1+ H Negative Urine Ketones Negative Negative Urine Blood 3+ H Negative /uL Urine Nitrite Negative Negative Urine Bilirubin 1+ H Negative Urine Urobilinogen 2 H Negative mg/dL Urine Leukocyte Esterase 3+ Negative /uL Urine RBC 130 0 - 4 /hpf Urine Microscopic WBC 33 H 0-5 /HPF Urine Squamous Epithelial Cells Few <5 /hpf Urine Bacteria Many H None Seen /hpf Urine Hyaline Casts Few 0 - 2 /lpf Urine Mucus Few None Seen Urine Glucose Trace Normal mg/dL Urine Opiates Screen Neg NEGATIVE Urine Fentanyl Screen Neg NEGATIVE Urine Barbiturates Screen Neg NEGATIVE Urine Phencyclidine Screen Neg NEGATIVE Urine Amphetamines Screen Neg NEGATIVE Urine Benzodiazepines Screen Neg NEGATIVE Urine Cocaine Screen Neg NEGATIVE Urine Cannabinoids Screen Neg NEGATIVE Stool Occult Blood Positive Negative Stool Occult Blood Sample #3 Negative White Blood Count 24.4 H 4.4-10.8 10^3/uL Red Blood Count 4.84 4.0-5.20 10^6/uL Hemoglobin 14.9 12.2-16.2 g/dL Hematocrit 46.4 #H 36.0-46.0 % Mean Corpuscular Volume 95.9 80.0-100.0 fL Mean Corpuscular Hemoglobin 30.8 28.0-32.0 pg Mean Corpuscular Hemoglobin Concent 32.1 32.0-36.0 g/dL Red Cell Distribution Width 16.4 H 11.8-14.3 % Platelet Count 159 140-450 10^3/uL Mean Platelet Volume 11.3 H 6.9-10.8 fL Neutrophils (%) (Auto) 92.1 H 37.0-80.0 % Lymphocytes (%) (Auto) 3.0 L 10.0-50.0 % Monocytes (%) (Auto) 4.6 0.0-12.0 % Eosinophils (%) (Auto) 0.1 0.0-7.0 % Basophils (%) (Auto) 0.2 0.0-2.0 % Neutrophils # (Auto) 22.5 H 1.6-8.6 10 ^3/uL Lymphocytes # (Auto) 0.7 0.4-5.4 10 ^3/uL Monocytes # (Auto) 1.1 0-1.3 10 ^3/uL Eosinophils # (Auto) 0 0-0.8 10 ^3/uL Basophils # (Auto) 0 0-0.2 10 ^3/uL Nucleated Red Blood Cells 0.9 % Sodium Level 163 *H 136-145 mmol/L Potassium Level 4.6 3.5-5.1 mmol/L Chloride Level 125 H 98-107 mmol/L Carbon Dioxide Level 16 L 20-31 mmol/L Anion Gap 22 H 5-15 Blood Urea Nitrogen 144 #*H 9-23 mg/dL Creatinine 8.52 H 0.550-1.02 mg/dL Glomerular Filtration Rate Calc 5 >90 mL/min BUN/Creatinine Ratio 16.9 10.0-20.0 Serum Glucose 146 H 74-106 mg/dL Lactic Acid Level 4.8 *H 6.3 *H 0.4-2.0 mmol/L Calcium Level 9.0 8.7-10.4 mg/dL Total Bilirubin 0.8 0.2-1.0 mg/dL Aspartate Amino Transferase (AST) 144 H 13-40 U/L Alanine Aminotransferase (ALT) 32 7-40 U/L Alkaline Phosphatase 132 H 46-116 U/L Troponin I High Sensitivity 282 *H 199 *H </=34 ng/L Total Protein 6.9 5.7-8.2 g/dL Albumin 3.0 L 3.2-4.8 g/dL Test 09/21/25 16:24 09/21/25 15:40 09/21/25 15:09 Range/Units Troponin I High Sensitivity 165 *H 171 *H </=34 ng/L Blood Gas Specimen Type Arterial Blood Gas Sample Site Right radial Blood Gas Patient Temperature 37.0 Arterial Blood Date Drawn [id number] Arterial Blood pH 7.246 *L 7.350-7.450 Arterial Blood Partial Pressure CO2 19.6 *L 32.0-45.0 mmHg Arterial Blood Partial Pressure O2 104.8 83.0-108.0 mmHg Arterial Blood HCO3 8.3 L 21.0-28.0 mmol/L Arterial Blood Oxygen Saturation 97.1 94.0-98.0 % Arterial Blood Base Excess -16.0 L -2.0-3.0 mmol/L Arterial Blood Oxyhemoglobin 96.0 94.0-98.0 % Arterial Blood Carboxyhemoglobin 0.3 L 0.5-1.5 % Arterial Blood Methemoglobin 0.8 0.0-1.5 % Aristeo Test Yes Blood Gas Total Hemoglobin 19.20 *H 12.0-16.0 g/dL Blood Gas Modality Room air FiO2 % 21.0 Blood Gas Critical Value Read Back yes Blood Gas Notified Whom Blood Gas Notified Time [id number] Blood Gas Notified By director of residence life eliz White Blood Count 26.4 H 4.4-10.8 10^3/uL Red Blood Count 5.53 H 4.0-5.20 10^6/uL Hemoglobin 17.1 H 12.2-16.2 g/dL Hematocrit 53.9 H 36.0-46.0 % Mean Corpuscular Volume 97.5 80.0-100.0 fL Mean Corpuscular Hemoglobin 30.9 28.0-32.0 pg Mean Corpuscular Hemoglobin Concent 31.7 L 32.0-36.0 g/dL Red Cell Distribution Width 17.5 H 11.8-14.3 % Platelet Count 176 140-450 10^3/uL Mean Platelet Volume 11.6 H 6.9-10.8 fL Neutrophils (%) (Auto) 89.3 H 37.0-80.0 % Lymphocytes (%) (Auto) 5.1 L 10.0-50.0 % Monocytes (%) (Auto) 5.5 0.0-12.0 % Eosinophils (%) (Auto) 0.0 0.0-7.0 % Basophils (%) (Auto) 0.1 0.0-2.0 % Neutrophils # (Auto) 23.6 H 1.6-8.6 10 ^3/uL Lymphocytes # (Auto) 1.3 0.4-5.4 10 ^3/uL Monocytes # (Auto) 1.5 H 0-1.3 10 ^3/uL Eosinophils # (Auto) 0 0-0.8 10 ^3/uL Basophils # (Auto) 0 0-0.2 10 ^3/uL Nucleated Red Blood Cells 0.8 % Prothrombin Time 12.5 H 9.3-11.8 sec Prothrombin Time INR 1.20 H 0.9-1.15 Activated Partial Thromboplast Time 25.1 24.5-34.5 SEC Sodium Level 162 *H 136-145 mmol/L Potassium Level 6.1 *H 3.5-5.1 mmol/L Chloride Level 117 H 98-107 mmol/L Carbon Dioxide Level 14 L 20-31 mmol/L Anion Gap 31 H 5-15 Blood Urea Nitrogen 168 *H 9-23 mg/dL Creatinine 10.81 *H 0.550-1.02 mg/dL Glomerular Filtration Rate Calc 4 >90 mL/min BUN/Creatinine Ratio 15.5 10.0-20.0 Serum Glucose 112 H 74-106 mg/dL Lactic Acid Level 7.2 *H 0.4-2.0 mmol/L Calcium Level 10.6 H 8.7-10.4 mg/dL Creatine Kinase 948 H 34-145 U/L Plasma/Serum Blood Alcohol < 3.0 <10 mg/dL Assessment Acute kidney injury in the setting of septic shock Hypernatremia Septic shock Obesity Diabetes Lactic acidosis Recommendations Continue D5W IV as ordered Currently on Levophed Monitor for renal recovery If no improvement in renal function in next 24 to 48 hours we will consider dialysis We will follow closely Renally dose antibiotics to GFR High complexity guarded prognosis Plan discussed with: Patient RENETTA GAY MD Sep 22, 2025 17:43
--- NOTE | 2025-09-22 19:53 | DVHPNRES ---
Progress Note Date Seen: Sep 22, 2025 Resident Creating Document: BARRY NUNES RESIDENT Medical Necessity Reason Pt with a Central, PICC or Fol: Yes The following are medically ne: Yap Catheter Subjective Review of Systems Patient is seen and examined at bedside Patient is currently alert and oriented x2 very lethargic to talk Patient does not have any spouse were kids but has sister who called the patient for two days and patient did not respond. They found the patient to be confused lying on the floor with stool that contain blood. Medication list received from the patient's sister over the phone Benazepril Gabapentin Furosemide Cetirizine Cyclobenzaprine Allopurinol B12 Atorvastatin Prednisone Objective vital signs Vital Sign Date Time Temp Pulse Resp B/P (MAP) Pulse Ox O2 Delivery O2 Flow Rate FiO2 09/22/25 18:45 110/55 09/22/25 18:45 75 13 100 09/22/25 18:00 Nasal Cannula* 2 28 09/22/25 16:00 98.2 98.2 Total Intake and Output 09/21/25 09/21/25 09/22/25 15:00 23:00 07:00 Intake Total 1000 ml 90 ml 1622.45 ml Output Total 5 ml Balance 1000 ml 90 ml 1617.45 ml medications Current Medications Medications Dose Ordered Sig/Merry Route Start Time Stop Time Status Last Admin Dose Admin Norepinephrine Bitartrate 250 ml @ 3.75 mls/hr Q24H IV 09/21/25 14:15 09/22/25 14:52 30 MLS/HR Piperacillin Sod/ Tazobactam Sod 100 ml @ 25 mls/hr Q12HR IV 09/21/25 22:00 09/22/25 10:55 25 MLS/HR Vancomycin HCl 0 ml @ 0 mls/hr PER PHARMACY IV 09/21/25 19:45 Pantoprazole Sodium 40 mg DAILY IV 09/22/25 10:00 09/22/25 10:55 40 MG Diagnostic Test (Pha) 1 strip Q6HR 09/22/25 00:00 09/22/25 18:09 1 STRIP Insulin Human Regular Q6HR SC 09/22/25 00:00 09/22/25 18:10 2 UNITS Dextrose 50 ml UD PRN IV 09/21/25 19:45 Ondansetron HCl 4 mg Q4HP PRN IV 09/21/25 19:45 Morphine Sulfate 2 mg Q30M PRN IV 09/21/25 19:45 UNV Dextrose 1,000 ml @ 150 mls/hr Q6H40M IV 09/22/25 10:00 09/22/25 16:26 150 MLS/HR Micafungin Sodium 100 mg/Sodium Chloride 100 ml @ 100 mls/hr DAILY IV 09/23/25 10:00 Examination Examination General Appearance: Alert, Oriented X3, Cooperative, No acute distress HEENT: EOMI Respiratory: Clear to auscultation, Normal air movement Cardiovascular: Regular rate, Normal S1, Normal S2 Abdominal: Normal bowel sounds, multiple striae/present on the abdomen, 2 cm deep ulcerative wound present on the right lower quadrant, sacral ulcer stage II present on admission, multiple purple color macular rash present on lower extremity and arm Extremities: No cyanosis, No edema, Normal pulses, No tenderness/swelling Skin: No rashes, No breakdown Neuro: Confused laboratory and microbiology Laboratory Tests 09/22/25 12:56 09/22/25 09:20 Test 09/22/25 09:20 Range/Units Serum Glucose 137 H 74-106 mg/dL Microbiology Date/Time Source Procedure Growth Status 09/21/25 15:19 Blood Blood Culture - Preliminary NO GROWTH AFTER 24 HOURS OF INCUBATION. Resulted Labs and/or images reviewed: Labs reviewed by me Problem List/Assessment/Plan Problem List/Assessment/Plan Assessment/plan Neurology # metabolic/uremic encephalopathy likely due to sepsis and uremia, hypernatremia Head CT Correct the underlying cause # mechanical fall Head CT Cardiology # shock, likely septic shock - currently on norepinephrine # hypertension currently in shock # NSTEMI type 2 likely due to shock/SWATI Monitor Infectious disease # sepsis with septic shock likely due to UTI/wound infection -wound culture, blood culture, urine culture IV antibiotics Currently on D5 W at 150 cc/hour # multiple wound infection ? Ecthyma gangrenosum # ulcerative wound infection on right lower abdominal quadrant -wound culture IV antibiotics IV micafungin Endocrine # diabetes mellitus type 2 Sliding scale insulin Nephrology # SWATI likely due to sepsis, unknown baseline function -nephrology on board : If no improvement in renal function in next 24 to 48 hours we will consider dialysis -Avod nephrotoxic drugs -monitor # anion gap metabolic acidosis with partial compensatory respiratory alkalosis Monitor ABG # hyperkalemia Corrected # hypernatremia, Likely acute - D5W at 150 cc/hour # Probable right adrenal myelolipoma Seen on CT GI # GI bleed -FOBT positive Currently on Protonix IV daily # mild transaminitis likely due to shock Jasmyn Lafleur Hematology oncology # thrombocytopenia likely due to sepsis Monitor # coagulopathy likely due to sepsis Monitor Urology # complicated UTI Urine Cultures and IV antibiotics #DVT prophylaxis -Lovenox currently on hold because of GI bleed SCDs # morbid obesity Lines Right IJ CVC placed on 09/21/2025 Yap's catheter placed on 09/21/2025 Drips Norepinephrine And D5W Code status, discussed with family for greater than 21 minutes, full code Family updated about the condition of the patient over phone Critical care time excluding procedures greater than 81 minutes Case discussed with Dr. Correa Plan discussed with: Patient, Other My Orders My Orders Orders - BARRY NUNES Procedure Category Date Status Time Urine Bacterial LOVE 09/22/25 Logged Culture 14:30 Electrocardigram EKG 09/22/25 Logged 10:25 Mrsa Screen LOVE 09/22/25 Logged 14:20 Wound Culture W/ Gs LOVE 09/22/25 In Process 14:15 Electrocardigram EKG 09/22/25 Logged 12:00 Electrocardigram EKG 09/22/25 Logged 13:00 Cleanse Wound With ROLLY 09/22/25 In Process Wound Clean 13:28 Apply/Change Dressing ROLLY 09/22/25 In Process 13:28 * Dietary Consult CONS 09/22/25 Transmitted 15:34 Date of Service: Sep 22, 2025 Billing Provider: BEATRIZ CORREA MD Common Visit Codes: 84013-[id number] CARE 30-74 MIN, 30029-[id number] CARE-EACH +30MIN BARRY NUNES Sep 22, 2025 19:53 BEATRIZ CORREA MD Sep 23, 2025 14:05
[2025-09-23] VITALS (94 sets, daily range): BP systolic 75–123; BP diastolic 36–68; PULSE 63–84; RESP 9–17; TEMP 97.7–98.1; O2SAT 94–100
--- NOTE | 2025-09-23 04:26 | DVH ---
EXAM: CT HEAD WITHOUT CONTRAST INDICATION: s/p faill, pain TECHNIQUE: CT of the head without intravenous contrast. Radiation Dose Information: CT Dose: CTDI volume is 56.59 mGy. Dose-length product is 1020.4 mGy*cm The dose indicators for CT are the volume Computed Tomography (CT) Dose Index (CTDIvol) and the Dose Length Product (DLP), and are measured in units of mGy and mGy-cm, respectively. These indicators are not patient dose, but values generated from the CT scanner acquisition factors. The report includes radiation exposure data for exposures received during this examination. COMPARISON: None FINDINGS: There is no evidence of acute intracranial hemorrhage, extra-axial collection, mass effect, midline shift, herniation or hydrocephalus. The ventricles, sulci and cisterns are age appropriate. The bee-white differentiation is intact. Patchy periventricular and subcortical white matter hypoattenuation is nonspecific but may be related to small vessel ischemic disease. The visualized paranasal sinuses and mastoid air cells are clear. The surrounding soft tissues and osseous structures are unremarkable. IMPRESSION: No acute intracranial abnormality.
[2025-09-23 04:31] LABS: Hematocrit 36.1 % (36.0-46.0); Hemoglobin 11.6 g/dL (12.2-16.2); Mean Corpuscular Hemoglobin 30.7 pg (28.0-32.0); Mean Corpuscular Volume 95.4 fL (80.0-100.0); Nucleated Red Blood Cells % 0.1 %
--- NOTE | 2025-09-23 04:42 | DVH ---
EXAM: XY R SHOULDER 1V XRAY HISTORY: fall COMPARISON: None TECHNIQUE: Single frontal view of the right shoulder. FINDINGS: There is a right central venous catheter with its tip terminating in the superior vena cava. There is flattening of the right humeral head with osteophytes. Right shoulder joint space narrowing is noted. Alignment not well evaluated on single frontal view. Acromioclavicular joint space narrowing also noted. No displaced fracture. IMPRESSION: 1. No displaced fracture. 2. Right shoulder osteoarthritis.
[2025-09-23 04:47] LABS: Alanine Aminotransferase 30 U/L (7-40); Alkaline Phosphatase 102 U/L (46-116); Anion Gap 18 (5-15); Potassium 3.7 mmol/L (3.5-5.1)
[2025-09-23 04:48] LABS: Albumin 2.1 g/dL (3.2-4.8); Bilirubin, Total 0.5 mg/dL (0.2-1.0); Calcium 8.1 mg/dL (8.7-10.4); Carbon Dioxide 19 mmol/L (20-31); Chloride 115 mmol/L (98-107); Glucose 113 mg/dL (74-106); Magnesium 1.6 mg/dL (1.6-2.6); Sodium 152 mmol/L (136-145); Total Protein 4.8 g/dL (5.7-8.2)
[2025-09-23 04:55] LABS: BUN/Creatinine Ratio 21.1 (10.0-20.0)
[2025-09-23 05:05] LABS: Blood Urea Nitrogen 160 mg/dL (9-23)
[2025-09-23 06:11] LABS: Base Excess -9.5 mmol/L (-2.0-3.0)
--- NOTE | 2025-09-23 06:19 | DVH ---
EXAM: XY L SHOULDER 1V XRAY HISTORY: fall COMPARISON: XY R SHOULDER 1V XRAY on DOS: 09/22/25 TECHNIQUE: Four views of the right shoulder were performed. FINDINGS: No acute fracture or dislocation are identified about the right shoulder. There is a humeral head osteophyte. No significant degenerative changes or loss of subacromial space. IMPRESSION: 1. No acute fracture or dislocation is identified about the right shoulder.
[2025-09-23] MEDS: MICAFUNGIN SODIUM 100 MG in SODIUM CHL 0.9% 100 ML IV SCH (10:36)
--- NOTE | 2025-09-23 14:36 | DVHPN2 ---
Progress Note Date Seen: Sep 23, 2025 Resident Creating Document: JORJE CM RESDIENT Medical Necessity Reason Pt with a Central, PICC or Fol: Yes The following are medically ne: Yap Catheter Subjective Review of Systems Seen and examined in ICU. Patient is oriented to place and person, but can not provide proper history. Objective vital signs Vital Sign Date Time Temp Pulse Resp B/P (MAP) Pulse Ox O2 Delivery O2 Flow Rate FiO2 09/23/25 12:30 66 12 110/55 (73) 97 09/23/25 12:00 Nasal Cannula* 2 28 09/23/25 12:00 97.9 97.9 Total Intake and Output 09/22/25 09/22/25 09/23/25 15:00 23:00 07:00 Intake Total 895.00 ml 1360.00 ml 1286.25 ml Output Total 100 ml 250 ml Balance 895.00 ml 1260.00 ml 1036.25 ml medications Current Medications Medications Dose Ordered Sig/Merry Route Start Time Stop Time Status Last Admin Dose Admin Norepinephrine Bitartrate 250 ml @ 3.75 mls/hr Q24H IV 09/21/25 14:15 09/23/25 03:20 18.75 MLS/HR Piperacillin Sod/ Tazobactam Sod 100 ml @ 25 mls/hr Q12HR IV 09/21/25 22:00 09/23/25 10:31 25 MLS/HR Vancomycin HCl 0 ml @ 0 mls/hr PER PHARMACY IV 09/21/25 19:45 Pantoprazole Sodium 40 mg DAILY IV 09/22/25 10:00 09/23/25 10:31 40 MG Diagnostic Test (Pha) 1 strip Q6HR 09/22/25 00:00 09/23/25 12:26 1 STRIP Insulin Human Regular Q6HR SC 09/22/25 00:00 09/22/25 18:10 2 UNITS Dextrose 50 ml UD PRN IV 09/21/25 19:45 Ondansetron HCl 4 mg Q4HP PRN IV 09/21/25 19:45 Morphine Sulfate 2 mg Q30M PRN IV 09/21/25 19:45 UNV Dextrose 1,000 ml @ 150 mls/hr Q6H40M IV 09/22/25 10:00 09/23/25 00:32 150 MLS/HR Micafungin Sodium 100 mg/Sodium Chloride 100 ml @ 100 mls/hr DAILY IV 09/23/25 10:00 09/23/25 10:36 100 MLS/HR Examination General Appearance: Alert, Oriented X2, Cooperative, lethargic HEENT: Atraumatic, PERRLA, EOMI, Mucous membrane moist/pink Respiratory: Clear to auscultation, Normal air movement Cardiovascular: Regular rate, Normal S1, Normal S2, No murmurs, no chest wall tenderness Abdominal: Normal bowel sounds, Soft, No tenderness, No hepatospenomegaly, No masses Extremities: Bilateral lower limb of the feet are swollen, red (specifically the fingers) Skin: Diffuse skin ulcer on abdomen and bilateral lower limb, with a deep wound on the right side of abdomen, with black eschars on surfaces Neuro: Normal gait, Normal speech, Strength at 5/5 X4 ext, Normal tone, Sensation intact, Cranial nerves 3-12 NL, Reflexes 2+ Psych/Mental Status: Mental status NL, Mood NL laboratory and microbiology Laboratory Tests 09/23/25 03:30 Test 09/23/25 03:30 Range/Units Serum Glucose 113 H 74-106 mg/dL Microbiology Date/Time Source Procedure Growth Status 09/22/25 14:18 Abdomen Gram Stain Pending Resulted 09/22/25 14:18 Abdomen Wound Culture - Preliminary Resulted 09/22/25 02:45 Voided Urine Urine Culture - Preliminary Resulted 09/21/25 15:19 Blood Blood Culture - Preliminary Resulted Labs and/or images reviewed: Labs reviewed by me, Image(s) reviewed by me Problem List/Assessment/Plan Problem List/Assessment/Plan SWATI, in the setting of septic shock/VMN Dehydration/Hypernatremia Septic shock, possibly due to infected wounds Metabolic/uremia encephalopathy, due to above Obesity Diabetes Non ST-elevation MD GI bleeding Lactic acidosis Plan/Recommendations: (Dr. Gay) * Serum sodium improving properly, continue D5W IV at 150 mL/hour * Urine output improving, Monitor for renal recovery, If no improvement in renal function may consider dialysis * Currently on Levophed * Renally dose antibiotics to GFR * We follow up with the patient Thank you for giving us the opportunity to take care of your patient. Please call back if you have any questions/concerns. Addendum Patient seen and examined, plan discussed with resident. Agree with above, we will follow closely Plan discussed with: Patient, Other (RN) Dietary Evaluation Review Comments: Nutrition Recommendation: 1) Advance diet as medically feasible 2) Clem 1 pk daily, nephro-dale 1 tab daily 3) Ensure clear 240ml TID 4) Monitor PO intake, lab values, weight trend, and I/O Expected Outcomes/Goals: Wound to improve GI symptoms to improve Intake to meet >75% estimated needs Lab values to improve FU 2-3 days JORJE CM Sep 23, 2025 14:36 RENETTA GAY MD Sep 23, 2025 15:12
[2025-09-23] MEDS ORDERED: CLINIMIX PER PHARMACY 0 ML IV SCH (14:45)
--- NOTE | 2025-09-23 16:41 | DVHCONRES ---
Date Seen: Sep 23, 2025 Resident Creating Document: JHAJJANTHONYMARCUSET RESIDENT Referring Physician HIPOLITO Mohan Reason for Consultation GI bleed History of Present Illness 60-year-old female presents for evaluation of altered mental status. Patient is lethargic oriented x2. Patient was found on the floor covered in bloody stool and confused by family members. Family had not heard from her in the past two days. Denies chest pain or shortness for breath. No unilateral weakness or slurred speech noted. Past Medical History Hypertension, diabetes Past Surgical History Hysterectomy, cholecystectomy Family History Noncontributory Social History Reported to be living alone and denies smoking, alcohol, drug use Allergies: Coded Allergies: No Known Drug Allergy (Verified Allergy, Unknown, 08/07/24) Home Meds Active Scripts Prednisone (Prednisone) 20 Mg Tab, 40 MG PO DAILY for 5 Days, #10 MG Prov:MARIO HUNT MD 07/06/24 Current Medications Current Medications Medications (Trade) Dose Ordered Sig/Merry Route PRN Reason Start Time Stop Time Status Last Admin Micafungin Sodium 100 mg/Sodium Chloride 100 ml @ 100 mls/hr DAILY IV 09/23/25 10:00 09/23/25 10:36 Amino Acids 0 ml @ 0 mls/hr PER PHARMACY IV 09/23/25 14:45 Review of Systems Patient seen and examined at bedside Alert and oriented x2 Reports of lower abdominal pain Denies nausea or vomiting H&H dropped significantly since the patient admitted from 17 to 11.6 Stool occult blood positive Vital Signs Vital Signs Date Time Temp Pulse Resp B/P (MAP) Pulse Ox O2 Delivery O2 Flow Rate FiO2 09/23/25 15:00 66 12 101/52 (68) 97 09/23/25 14:00 Nasal Cannula* 2 28 09/23/25 12:00 97.9 97.9 Physical Exam Gen - no pallor, no scleral icterus Skin - Patients skin is warm and dry. HEENT - normocephalic, atraumatic, dry mucous membranes. Neck - supple, no lymphadenopathy Pulmonary - B/L decreased breath sounds cardiovascular - regular S1,S2 heard GI - soft abdomen with tenderness to palpation in the lower quadrants with a visible wounds in the lower abdominal quadrant. Bowel sounds normoactive. Neurological - Patient is alert and oriented x2, following commands Labs/Diagnostic Data Labs Test 09/23/25 12:28 09/23/25 06:05 09/23/25 03:30 09/22/25 12:56 Range/Units POC Glucose 105 70-106 mg/dl Blood Gas Specimen Type Arterial Blood Gas Sample Site Right radial Blood Gas Patient Temperature 37.0 Arterial Blood Date Drawn [id number] Arterial Blood pH 7.336 L 7.350-7.450 Arterial Blood Partial Pressure CO2 28.4 L 32.0-45.0 mmHg Arterial Blood Partial Pressure O2 86.8 83.0-108.0 mmHg Arterial Blood HCO3 14.8 L 21.0-28.0 mmol/L Arterial Blood Oxygen Saturation 96.0 94.0-98.0 % Arterial Blood Base Excess -9.5 L -2.0-3.0 mmol/L Arterial Blood Oxyhemoglobin 95.4 94.0-98.0 % Arterial Blood Carboxyhemoglobin 0.4 L 0.5-1.5 % Arterial Blood Methemoglobin 0.2 0.0-1.5 % Aristeo Test Yes Blood Gas Total Hemoglobin 12.80 12.0-16.0 g/dL Blood Gas Modality Room air FiO2 % 21.0 White Blood Count 19.5 H 4.4-10.8 10^3/uL Red Blood Count 3.78 L 4.0-5.20 10^6/uL Hemoglobin 11.6 L 12.2-16.2 g/dL Hematocrit 36.1 # 36.0-46.0 % Mean Corpuscular Volume 95.4 80.0-100.0 fL Mean Corpuscular Hemoglobin 30.7 28.0-32.0 pg Mean Corpuscular Hemoglobin Concent 32.2 32.0-36.0 g/dL Red Cell Distribution Width 16.3 H 11.8-14.3 % Platelet Count 81 L 140-450 10^3/uL Mean Platelet Volume 11.5 H 6.9-10.8 fL Neutrophils (%) (Auto) 87.0 H 37.0-80.0 % Lymphocytes (%) (Auto) 8.0 L 10.0-50.0 % Monocytes (%) (Auto) 4.4 0.0-12.0 % Eosinophils (%) (Auto) 0.5 0.0-7.0 % Basophils (%) (Auto) 0.1 0.0-2.0 % Neutrophils # (Auto) 17.0 H 1.6-8.6 10 ^3/uL Lymphocytes # (Auto) 1.6 0.4-5.4 10 ^3/uL Monocytes # (Auto) 0.9 0-1.3 10 ^3/uL Eosinophils # (Auto) 0.1 0-0.8 10 ^3/uL Basophils # (Auto) 0 0-0.2 10 ^3/uL Nucleated Red Blood Cells 0.1 % Sodium Level 152 #H 136-145 mmol/L Potassium Level 3.7 3.5-5.1 mmol/L Chloride Level 115 H 98-107 mmol/L Carbon Dioxide Level 19 L 20-31 mmol/L Anion Gap 18 H 5-15 Blood Urea Nitrogen 160 *H 9-23 mg/dL Creatinine 7.57 H 0.550-1.02 mg/dL Glomerular Filtration Rate Calc 6 >90 mL/min BUN/Creatinine Ratio 21.1 H 10.0-20.0 Serum Glucose 113 H 74-106 mg/dL Calcium Level 8.1 L 8.7-10.4 mg/dL Magnesium Level 1.6 1.6-2.6 mg/dL Total Bilirubin 0.5 0.2-1.0 mg/dL Aspartate Amino Transferase (AST) 113 H 13-40 U/L Alanine Aminotransferase (ALT) 30 7-40 U/L Alkaline Phosphatase 102 46-116 U/L Creatine Kinase 1101 H 34-145 U/L Total Protein 4.8 L 5.7-8.2 g/dL Albumin 2.1 L 3.2-4.8 g/dL Random Vancomycin Level 21.3 H 5-10 ug/mL Lactic Acid Level 2.5 *H 0.4-2.0 mmol/L Troponin I High Sensitivity 482 *H </=34 ng/L Test 09/22/25 02:45 09/21/25 22:51 09/21/25 15:40 09/21/25 15:09 Range/Units Urine Color [facility] H Yellow Urine Clarity Turbid H Clear Urine pH 5.0 5.0-9.0 Urine Specific [place] 1.026 1.001-1.035 Urine Protein 1+ H Negative Urine Ketones Negative Negative Urine Blood 3+ H Negative /uL Urine Nitrite Negative Negative Urine Bilirubin 1+ H Negative Urine Urobilinogen 2 H Negative mg/dL Urine Leukocyte Esterase 3+ Negative /uL Urine RBC 130 0 - 4 /hpf Urine Microscopic WBC 33 H 0-5 /HPF Urine Squamous Epithelial Cells Few <5 /hpf Urine Bacteria Many H None Seen /hpf Urine Hyaline Casts Few 0 - 2 /lpf Urine Mucus Few None Seen Urine Glucose Trace Normal mg/dL Urine Opiates Screen Neg NEGATIVE Urine Fentanyl Screen Neg NEGATIVE Urine Barbiturates Screen Neg NEGATIVE Urine Phencyclidine Screen Neg NEGATIVE Urine Amphetamines Screen Neg NEGATIVE Urine Benzodiazepines Screen Neg NEGATIVE Urine Cocaine Screen Neg NEGATIVE Urine Cannabinoids Screen Neg NEGATIVE Stool Occult Blood Positive Negative Stool Occult Blood Sample #3 Negative Blood Gas Critical Value Read Back yes Blood Gas Notified Whom Blood Gas Notified Time [id number] Blood Gas Notified By street light repairer eliz Prothrombin Time 12.5 H 9.3-11.8 sec Prothrombin Time INR 1.20 H 0.9-1.15 Activated Partial Thromboplast Time 25.1 24.5-34.5 SEC Plasma/Serum Blood Alcohol < 3.0 <10 mg/dL Microbiology Date/Time Source Procedure Growth Status 09/22/25 14:18 Abdomen Gram Stain Pending Resulted 09/22/25 14:18 Abdomen Wound Culture - Preliminary Resulted 09/22/25 02:45 Voided Urine Urine Culture - Preliminary Resulted 09/21/25 15:19 Blood Blood Culture - Preliminary Resulted Assessment Possible upper GI bleed Acute gastroenteritis Septic shock likely from abdominal wound/UTI Bacteremia SWATI on CKD Plan - since the patient is hemodynamically unstable, we will reassess tomorrow and plan for a possible EGD - Protonix 40 mg IV b.i.d. - NPO since the patient failed swallow evaluation - started on Clinimix - monitor H&H and keep hemoglobin above [address] Cross Plan discussed with: Patient, Other (ROSENDO Gibbs) ADRIA OWENS RESIDENT Sep 23, 2025 16:41
--- NOTE | 2025-09-23 19:14 | DVHPNRES ---
Progress Note Date Seen: Sep 23, 2025 Resident Creating Document: BARRY NUNES RESIDENT Medical Necessity Reason Pt with a Central, PICC or Fol: Yes The following are medically ne: Yap Catheter Subjective Review of Systems pt seen and examined at bedside still drowsy no other complaints more alert compared to yesterday pt had improvement in cognition. sodium levels improved from 162 to 152, BUN worsened but creatinine mildly improved. Matt catheter planned by nephrology. urine output mildly improving Objective vital signs Vital Sign Date Time Temp Pulse Resp B/P (MAP) Pulse Ox O2 Delivery O2 Flow Rate FiO2 09/23/25 19:00 64 14 97/55 (69) 98 09/23/25 18:00 Nasal Cannula* 2 28 09/23/25 16:00 97.8 97.8 Total Intake and Output 09/22/25 09/22/25 09/23/25 15:00 23:00 07:00 Intake Total 895.00 ml 1360.00 ml 1436.25 ml Output Total 100 ml 250 ml Balance 895.00 ml 1260.00 ml 1186.25 ml medications Current Medications Medications Dose Ordered Sig/Merry Route Start Time Stop Time Status Last Admin Dose Admin Norepinephrine Bitartrate 250 ml @ 3.75 mls/hr Q24H IV 09/21/25 14:15 09/23/25 03:20 18.75 MLS/HR Piperacillin Sod/ Tazobactam Sod 100 ml @ 25 mls/hr Q12HR IV 09/21/25 22:00 09/23/25 10:31 25 MLS/HR Vancomycin HCl 0 ml @ 0 mls/hr PER PHARMACY IV 09/21/25 19:45 Diagnostic Test (Pha) 1 strip Q6HR 09/22/25 00:00 09/23/25 17:57 1 STRIP Insulin Human Regular Q6HR SC 09/22/25 00:00 09/22/25 18:10 2 UNITS Dextrose 50 ml UD PRN IV 09/21/25 19:45 Ondansetron HCl 4 mg Q4HP PRN IV 09/21/25 19:45 Morphine Sulfate 2 mg Q30M PRN IV 09/21/25 19:45 UNV Dextrose 1,000 ml @ 150 mls/hr Q6H40M IV 09/22/25 10:00 09/23/25 14:46 150 MLS/HR Micafungin Sodium 100 mg/Sodium Chloride 100 ml @ 100 mls/hr DAILY IV 09/23/25 10:00 09/23/25 10:36 100 MLS/HR Amino Acids 0 ml @ 0 mls/hr PER PHARMACY IV 09/23/25 14:45 Amino Acids/ Electrolytes/ Dextrose 1,000 ml @ 41 mls/hr DAILY@2200 IV 09/23/25 22:00 Pantoprazole Sodium 40 mg BID IV 09/23/25 22:00 Examination Examination General Appearance: Alert, Oriented X3, Cooperative, No acute distress HEENT: EOMI Respiratory: Clear to auscultation, Normal air movement Cardiovascular: Regular rate, Normal S1, Normal S2 Abdominal: Normal bowel sounds, multiple striae/present on the abdomen, 2 cm deep ulcerative wound present on the right lower quadrant, sacral ulcer stage II present on admission, multiple purple color macular rash present on lower extremity and arm Extremities: No cyanosis, No edema, Normal pulses, No tenderness/swelling Skin: No rashes, No breakdown Neuro: Confused laboratory and microbiology Laboratory Tests 09/23/25 03:30 Test 09/23/25 03:30 Range/Units Serum Glucose 113 H 74-106 mg/dL Microbiology Date/Time Source Procedure Growth Status 09/22/25 14:18 Abdomen Gram Stain Pending Resulted 09/22/25 14:18 Abdomen Wound Culture - Preliminary Resulted 09/22/25 02:45 Voided Urine Urine Culture - Preliminary Resulted 09/21/25 15:19 Blood Blood Culture - Preliminary Resulted Labs and/or images reviewed: Labs reviewed by me, Image(s) reviewed by me Problem List/Assessment/Plan Problem List/Assessment/Plan Assessment/plan Neurology # metabolic/uremic encephalopathy likely due to sepsis and uremia, hypernatremia Head CT Correct the underlying cause # mechanical fall Head CT Cardiology # shock, likely septic shock - currently on norepinephrine # hypertension currently in shock # NSTEMI type 2 likely due to shock/SWATI Monitor Infectious disease # sepsis with septic shock likely due to UTI/wound infection -wound culture, blood culture, urine culture IV antibiotics Currently on D5 W at 150 cc/hour # multiple wound infection ? Ecthyma gangrenosum # ulcerative wound infection on right lower abdominal quadrant -wound culture IV antibiotics IV micafungin Endocrine # diabetes mellitus type 2 Sliding scale insulin Nephrology # SWATI likely due to sepsis, unknown baseline function -nephrology on board : If no improvement in renal function in next 24 to 48 hours we will consider dialysis -Avod nephrotoxic drugs -monitor # anion gap metabolic acidosis with partial compensatory respiratory alkalosis Monitor ABG # hyperkalemia Corrected # hypernatremia, Likely acute, improving - D5W at 150 cc/hour # Probable right adrenal myelolipoma Seen on CT GI # GI bleed -FOBT positive Currently on Protonix IV daily # mild transaminitis likely due to shock will monitor Hematology oncology # thrombocytopenia likely due to sepsis Monitor # coagulopathy likely due to sepsis Monitor Urology # complicated UTI Urine Cultures and IV antibiotics Endocrine # Morbid Obesity -will career guidance counselor on weight loss once more alert #DVT prophylaxis -Lovenox currently on hold because of GI bleed SCDs Lines Right IJ CVC placed on 09/21/2025 Yap's catheter placed on 09/21/2025 Drips Norepinephrine And D5W pt had improvement in cognition. sodium levels improved from 162 to 152, BUN worsened but creatinine mildly improved. Matt catheter planned by nephrology. urine output mildly improving Code status, discussed with family for greater than 21 minutes, full code Family updated about the condition of the patient over phone Critical care time excluding procedures greater than 63minutes Case discussed with Dr. Correa Plan discussed with: Other My Orders My Orders Orders - BARRY NUNES RESIDENT Procedure Category Date Status Time Head Without Contrast CT 09/22/25 Resulted 21:05 R Shoulder 1v Xray XY 09/22/25 Resulted 21:05 L Shoulder 1v Xray XY 09/23/25 Resulted 07:00 * Picc Line Consult CONS 09/23/25 Transmitted 10:[address] 09/23/25 Transmitted 10:38 Npo (Nothing By DIET 09/23/25 Transmitted Mouth) Diet Lunch Dietary Evaluation Review Comments: Nutrition Recommendation: 1) Advance diet as medically feasible 2) Clem 1 pk daily, nephro-dale 1 tab daily 3) Ensure clear 240ml TID 4) Monitor PO intake, lab values, weight trend, and I/O Expected Outcomes/Goals: Wound to improve GI symptoms to improve Intake to meet >75% estimated needs Lab values to improve FU 2-3 days Date of Service: Sep 23, 2025 Billing Provider: BEATRIZ CORREA MD Common Visit Codes: [id number] CARE 30-74 MIN BARRY NUNES Sep 23, 2025 19:14 BEATRIZ CORREA MD Sep 24, 2025 14:23
[2025-09-23] MEDS: PANTOPRAZOLE 40 MG/10 ML VIAL INJ IV SCH (22:23)
[2025-09-23] MEDS: AMINO ACID INFUSION IN D10W 1,000 ML IV SCH (22:27)
[2025-09-24] VITALS (92 sets, daily range): BP systolic 67–131; BP diastolic 43–73; PULSE 60–74; RESP 9–25; TEMP 97.5–97.7; O2SAT 95–99
[2025-09-24 04:33] LABS: Hematocrit 34.2 % (36.0-46.0); Hemoglobin 11.1 g/dL (12.2-16.2); Mean Corpuscular Hemoglobin 30.4 pg (28.0-32.0); Mean Corpuscular Volume 94.0 fL (80.0-100.0); Nucleated Red Blood Cells % 0.2 %
[2025-09-24 04:45] LABS: Sodium 143 mmol/L (136-145)
[2025-09-24 04:46] LABS: Anion Gap 18 (5-15)
[2025-09-24 04:47] LABS: Calcium 7.9 mg/dL (8.7-10.4); Carbon Dioxide 17 mmol/L (20-31); Chloride 108 mmol/L (98-107); Potassium 3.3 mmol/L (3.5-5.1)
[2025-09-24 04:51] LABS: Glucose 91 mg/dL (74-106)
[2025-09-24 04:55] LABS: Albumin 2.1 g/dL (3.2-4.8); Magnesium 1.2 mg/dL (1.6-2.6)
[2025-09-24 05:00] LABS: BUN/Creatinine Ratio 24.8 (10.0-20.0)
[2025-09-24 05:04] LABS: Blood Urea Nitrogen 146 mg/dL (9-23)
[2025-09-24] MEDS: MAGNESIUM SULFATE 1GM/100ML 100 ML IV SCH ×2 (05:39→11:05)
--- NOTE | 2025-09-24 08:29 | DVHPN2 ---
Progress Note Date Seen: Sep 24, 2025 Resident Creating Document: JORJE CM RESDIENT Medical Necessity Reason Pt with a Central, PICC or Fol: Yes The following are medically ne: Yap Catheter Subjective Review of Systems Seen and examined in ICU. Patient is oriented to place and person, feeling better than yesterday, and can provide more history. Objective vital signs Vital Sign Date Time Temp Pulse Resp B/P (MAP) Pulse Ox O2 Delivery O2 Flow Rate FiO2 09/24/25 06:30 62 11 127/70 (89) 98 09/24/25 06:00 Room Air* 0 21 09/24/25 04:00 97.5 97.5 Total Intake and Output 09/23/25 09/23/25 09/24/25 15:00 23:00 07:00 Intake Total 1426.25 ml 1299.75 ml 1560.75 ml Output Total 650 ml 1100 ml Balance 1426.25 ml 649.75 ml 460.75 ml medications Current Medications Medications Dose Ordered Sig/Merry Route Start Time Stop Time Status Last Admin Dose Admin Norepinephrine Bitartrate 250 ml @ 3.75 mls/hr Q24H IV 09/21/25 14:15 09/24/25 05:41 3.75 MLS/HR Piperacillin Sod/ Tazobactam Sod 100 ml @ 25 mls/hr Q12HR IV 09/21/25 22:00 09/23/25 22:22 25 MLS/HR Vancomycin HCl 0 ml @ 0 mls/hr PER PHARMACY IV 09/21/25 19:45 Diagnostic Test (Pha) 1 strip Q6HR 09/22/25 00:00 09/24/25 05:46 1 STRIP Insulin Human Regular Q6HR SC 09/22/25 00:00 09/22/25 18:10 2 UNITS Dextrose 50 ml UD PRN IV 09/21/25 19:45 Ondansetron HCl 4 mg Q4HP PRN IV 09/21/25 19:45 Morphine Sulfate 2 mg Q30M PRN IV 09/21/25 19:45 UNV Dextrose 1,000 ml @ 150 mls/hr Q6H40M IV 09/22/25 10:00 09/24/25 02:00 150 MLS/HR Micafungin Sodium 100 mg/Sodium Chloride 100 ml @ 100 mls/hr DAILY IV 09/23/25 10:00 09/23/25 10:36 100 MLS/HR Amino Acids 0 ml @ 0 mls/hr PER PHARMACY IV 09/23/25 14:45 Amino Acids/ Electrolytes/ Dextrose 1,000 ml @ 41 mls/hr DAILY@2200 IV 09/23/25 22:00 09/23/25 22:27 41 MLS/HR Pantoprazole Sodium 40 mg BID IV 09/23/25 22:00 09/23/25 22:23 40 MG Examination General Appearance: Alert, Oriented X2, Cooperative, lethargic HEENT: Atraumatic, PERRLA, EOMI, Mucous membrane moist/pink Respiratory: Clear to auscultation, Normal air movement Cardiovascular: Regular rate, Normal S1, Normal S2, No murmurs, no chest wall tenderness Abdominal: Normal bowel sounds, Soft, No tenderness, No hepatospenomegaly, No masses Extremities: Bilateral lower limb of the feet are swollen, red (specifically the fingers) Skin: Diffuse skin ulcer on abdomen and bilateral lower limb, with a deep wound on the right side of abdomen, with black eschars on surfaces Neuro: Normal gait, Normal speech, Strength at 5/5 X4 ext, Normal tone, Sensation intact, Cranial nerves 3-12 NL, Reflexes 2+ Psych/Mental Status: Mental status NL, Mood NL laboratory and microbiology Laboratory Tests 09/24/25 04:00 Test 09/24/25 04:00 Range/Units Serum Glucose 91 74-106 mg/dL Microbiology Date/Time Source Procedure Growth Status 09/22/25 14:18 Abdomen Gram Stain Pending Resulted 09/22/25 14:18 Wound Culture - Preliminary Proteus mirabilis Resulted 09/22/25 02:45 Voided Urine Urine Culture - Preliminary Resulted 09/21/25 15:19 Blood Blood Culture - Preliminary Resulted Labs and/or images reviewed: Labs reviewed by me, Image(s) reviewed by me Problem List/Assessment/Plan Problem List/Assessment/Plan SWATI, in the setting of septic shock/VMN Dehydration/Hypernatremia Septic shock, possibly due to infected wounds Metabolic/uremia encephalopathy, due to above Obesity Diabetes Non ST-elevation VT GI bleeding Lactic acidosis Plan/Recommendations: (Dr. Gay) * Kidney function is getting better, and serum sodium has normalized * D5W 1/2NS IV at 100 mL/hour * Currently on Levophed 2 * Renally dose antibiotics to GFR * We follow up with the patient and we will monitor kidney function Thank you for giving us the opportunity to take care of your patient. Please call back if you have any questions/concerns. Addendum Patient seen and examined, plan discussed with resident. Agree with above, we will follow closely Urine workup as ordered Plan discussed with: Patient, Other (RN) Dietary Evaluation Review Comments: Nutrition Recommendation: 1) Advance diet as medically feasible 2) Clem 1 pk daily, nephro-dale 1 tab daily 3) Ensure clear 240ml TID 4) Monitor PO intake, lab values, weight trend, and I/O Expected Outcomes/Goals: Wound to improve GI symptoms to improve Intake to meet >75% estimated needs Lab values to improve FU 2-3 days JORJE CM Sep 24, 2025 08:29 RENETTA GAY MD Sep 24, 2025 16:57
--- NOTE | 2025-09-24 09:03 | MEDREC ---
[facility] Intervention Section I [facility] Intervention: Deescalate AB based on CS (Please de-escalate antibiotics based on wound culture result. Recommend to switch vancomycin and zosyn to ceftriaxone. If decide to keep zosyn, please d/c vancomycin) RIC DAS [place] RESIDENT Sep 24, 2025 09:03
[2025-09-24] MEDS: POTASSIUM CHL 20MEQ/100ML 100 ML IV ONE (09:51)
[2025-09-24] MEDS: D5W/SOD CHL 0.45% 1,000 ML IV SCH (09:52)
[2025-09-24 15:04] LABS: Potassium 3.7 mmol/L (3.5-5.1)
[2025-09-24 15:11] LABS: Magnesium 2.0 mg/dL (1.6-2.6)
--- NOTE | 2025-09-24 16:31 | DVHPNRES ---
Progress Note Date Seen: Sep 24, 2025 Resident Creating Document: BARRY NUNES RESIDENT Medical Necessity Reason Pt with a Central, PICC or Fol: Yes The following are medically ne: Ayp Catheter Subjective Review of Systems Patient seen and examined bedside Had improvement in the cognition and alertness Still on norepinephrine at 2 micrograms/minute Wound culture growing Proteus Improving kidney function Objective vital signs Vital Sign Date Time Temp Pulse Resp B/P (MAP) Pulse Ox O2 Delivery O2 Flow Rate FiO2 09/24/25 09:45 12 98 Room Air* 0 21 09/24/25 06:30 62 127/70 (89) 09/24/25 04:00 97.5 97.5 Total Intake and Output 09/23/25 09/23/25 09/24/25 15:00 23:00 07:00 Intake Total 1426.25 ml 1299.75 ml 1560.75 ml Output Total 650 ml 1100 ml Balance 1426.25 ml 649.75 ml 460.75 ml medications Current Medications Medications Dose Ordered Sig/Merry Route Start Time Stop Time Status Last Admin Dose Admin Norepinephrine Bitartrate 250 ml @ 3.75 mls/hr Q24H IV 09/21/25 14:15 09/24/25 05:41 3.75 MLS/HR Piperacillin Sod/ Tazobactam Sod 100 ml @ 25 mls/hr Q12HR IV 09/21/25 22:00 09/24/25 11:05 25 MLS/HR Vancomycin HCl 0 ml @ 0 mls/hr PER PHARMACY IV 09/21/25 19:45 Diagnostic Test (Pha) 1 strip Q6HR 09/22/25 00:00 09/24/25 11:50 1 STRIP Insulin Human Regular Q6HR SC 09/22/25 00:00 09/22/25 18:10 2 UNITS Dextrose 50 ml UD PRN IV 09/21/25 19:45 Ondansetron HCl 4 mg Q4HP PRN IV 09/21/25 19:45 Morphine Sulfate 2 mg Q30M PRN IV 09/21/25 19:45 UNV Micafungin Sodium 100 mg/Sodium Chloride 100 ml @ 100 mls/hr DAILY IV 09/23/25 10:00 09/24/25 09:51 100 MLS/HR Amino Acids 0 ml @ 0 mls/hr PER PHARMACY IV 09/23/25 14:45 Amino Acids/ Electrolytes/ Dextrose 1,000 ml @ 41 mls/hr DAILY@2200 IV 09/23/25 22:00 09/23/25 22:27 41 MLS/HR Pantoprazole Sodium 40 mg BID IV 09/23/25 22:00 09/24/25 10:04 40 MG Dextrose/Sodium Chloride 1,000 ml @ 100 mls/hr Q10H IV 09/24/25 08:45 09/24/25 09:52 100 MLS/HR Examination Examination General Appearance: Alert, Oriented X3, Cooperative, No acute distress HEENT: EOMI Respiratory: Clear to auscultation, Normal air movement Cardiovascular: Regular rate, Normal S1, Normal S2 Abdominal: Normal bowel sounds, multiple striae/present on the abdomen, 2 cm deep ulcerative wound present on the right lower quadrant, sacral ulcer stage II present on admission, multiple purple color macular rash present on lower extremity and arm Extremities: No cyanosis, No edema, Normal pulses, No tenderness/swelling Skin: No rashes, No breakdown Neuro: Confused laboratory and microbiology Laboratory Tests 09/24/25 14:40 09/24/25 04:00 Test 09/24/25 04:00 Range/Units Serum Glucose 91 74-106 mg/dL Microbiology Date/Time Source Procedure Growth Status 09/22/25 14:18 Abdomen Gram Stain Pending Resulted 09/22/25 14:18 Wound Culture - Preliminary Proteus mirabilis Resulted 09/22/25 07:45 Stool Clostridium difficile Toxin Assay - Final Complete 09/22/25 02:45 Voided Urine Urine Culture - Final Complete 09/21/25 15:19 Blood Blood Culture - Final Staphylococcus epidermidis Complete Labs and/or images reviewed: Labs reviewed by me, Image(s) reviewed by me Problem List/Assessment/Plan Problem List/Assessment/Plan Assessment/plan Neurology # metabolic/uremic encephalopathy likely due to sepsis and uremia, hypernatremia, improving Head CT Correct the underlying cause # mechanical fall Head CT Cardiology # shock, likely septic shock - currently on norepinephrine at 2 microgram/minute # hypertension currently in shock, improving # NSTEMI type 2 likely due to shock/SWATI Monitor Infectious disease # sepsis with septic shock likely due to UTI/wound infection -wound culture, blood culture, urine culture IV antibiotics Switched to D5 half NS at 100 cc/hour # multiple wound infection ? Ecthyma gangrenosum, proteus infection # ulcerative wound infection on right lower abdominal quadrant -wound culture IV antibiotics IV micafungin Endocrine # diabetes mellitus type 2 Sliding scale insulin Nephrology # SWATI likely due to sepsis, unknown baseline function -nephrology on board : If no improvement in renal function in next 24 to 48 hours we will consider dialysis -Avod nephrotoxic drugs -monitor # anion gap metabolic acidosis with partial compensatory respiratory alkalosis Monitor ABG # hyperkalemia Corrected #hypokalemia -corrected with IV potassium -Monitor BMP # hypernatremia, Likely acute, improved -Switch to D5 half NS at 150 cc per # Probable right adrenal myelolipoma Seen on CT GI # GI bleed -FOBT positive GI on board Started on IV Protonix 40 mg b.i.d. # mild transaminitis likely due to shock will monitor Hematology oncology # thrombocytopenia likely due to sepsis Monitor # coagulopathy likely due to sepsis Monitor Urology # complicated UTI Urine Cultures and IV antibiotics Endocrine # Morbid Obesity -will cruise counselor on weight loss once more alert #DVT prophylaxis -Lovenox currently on hold because of GI bleed SCDs Lines Right IJ CVC placed on 09/21/2025 Yap's catheter placed on 09/21/2025 Drips Norepinephrine D5 half NS Patient has had improvement in kidney function, currently norepinephrine at 2 microgram/minute, improvement in the alertness and cognitive function, wound culture growing Proteus pansensitive. Code status, discussed with family for greater than 21 minutes, full code Family updated about the condition of the patient over phone. Critical care time excluding procedures greater than 61 minutes Case discussed with Dr. Correa Plan discussed with: Patient, Other My Orders My Orders Orders - BARRY NUNES RESIDENT Procedure Category Date Status Time D5w/Sod Chl 0.45% PHA 09/24/25 In Process (D5w 1/2ns) 08:45 Blood Culture LOVE 09/24/25 Uncollected 13:16 Dietary Evaluation Review Comments: Nutrition Recommendation: 1) Advance diet as medically feasible 2) Clem 1 pk daily, nephro-dale 1 tab daily 3) Ensure clear 240ml TID 4) Monitor PO intake, lab values, weight trend, and I/O Expected Outcomes/Goals: Wound to improve GI symptoms to improve Intake to meet >75% estimated needs Lab values to improve FU 2-3 days Date of Service: Sep 24, 2025 Billing Provider: BEATRIZ CORREA MD Common Visit Codes: [id number] CARE 30-74 MIN BARRY NUNES Sep 24, 2025 16:31 BEATRIZ CORREA MD Sep 25, 2025 11:40
--- NOTE | 2025-09-24 16:48 | DVHPN2 ---
Progress Note Date Seen: Sep 24, 2025 Resident Creating Document: ADRIA OWENS RESIDENT Medical Necessity Reason Pt with a Central, PICC or Fol: Yes The following are medically ne: Yap Catheter Subjective Review of Systems Patient seen and examined at bedside Alert and oriented x2 No nausea or vomiting Reports mild abdominal pain Objective vital signs Vital Sign Date Time Temp Pulse Resp B/P (MAP) Pulse Ox O2 Delivery O2 Flow Rate FiO2 09/24/25 09:45 12 98 Room Air* 0 21 09/24/25 06:30 62 127/70 (89) 09/24/25 04:00 97.5 97.5 Total Intake and Output 09/23/25 09/23/25 09/24/25 15:00 23:00 07:00 Intake Total 1426.25 ml 1299.75 ml 1560.75 ml Output Total 650 ml 1100 ml Balance 1426.25 ml 649.75 ml 460.75 ml medications Current Medications Medications Dose Ordered Sig/Merry Route Start Time Stop Time Status Last Admin Dose Admin Norepinephrine Bitartrate 250 ml @ 3.75 mls/hr Q24H IV 09/21/25 14:15 09/24/25 05:41 3.75 MLS/HR Piperacillin Sod/ Tazobactam Sod 100 ml @ 25 mls/hr Q12HR IV 09/21/25 22:00 09/24/25 11:05 25 MLS/HR Vancomycin HCl 0 ml @ 0 mls/hr PER PHARMACY IV 09/21/25 19:45 Diagnostic Test (Pha) 1 strip Q6HR 09/22/25 00:00 09/24/25 11:50 1 STRIP Insulin Human Regular Q6HR SC 09/22/25 00:00 09/22/25 18:10 2 UNITS Dextrose 50 ml UD PRN IV 09/21/25 19:45 Ondansetron HCl 4 mg Q4HP PRN IV 09/21/25 19:45 Morphine Sulfate 2 mg Q30M PRN IV 09/21/25 19:45 UNV Micafungin Sodium 100 mg/Sodium Chloride 100 ml @ 100 mls/hr DAILY IV 09/23/25 10:00 09/24/25 09:51 100 MLS/HR Amino Acids 0 ml @ 0 mls/hr PER PHARMACY IV 09/23/25 14:45 Amino Acids/ Electrolytes/ Dextrose 1,000 ml @ 41 mls/hr DAILY@2200 IV 09/23/25 22:00 09/23/25 22:27 41 MLS/HR Pantoprazole Sodium 40 mg BID IV 09/23/25 22:00 09/24/25 10:04 40 MG Dextrose/Sodium Chloride 1,000 ml @ 100 mls/hr Q10H IV 09/24/25 08:45 09/24/25 09:52 100 MLS/HR Examination Gen - no pallor, no scleral icterus Skin - Patients skin is warm and dry. HEENT - normocephalic, atraumatic, dry mucous membranes. Neck - supple, no lymphadenopathy Pulmonary - B/L decreased breath sounds cardiovascular - regular S1,S2 heard GI - soft abdomen with tenderness to palpation in the lower quadrants with a visible wounds in the lower abdominal quadrant. Bowel sounds normoactive. Neurological - Patient is alert and oriented x2, following commands laboratory and microbiology Laboratory Tests 09/24/25 14:40 09/24/25 04:00 Test 09/24/25 04:00 Range/Units Serum Glucose 91 74-106 mg/dL Microbiology Date/Time Source Procedure Growth Status 09/22/25 14:18 Abdomen Gram Stain Pending Resulted 09/22/25 14:18 Wound Culture - Preliminary Proteus mirabilis Resulted 09/22/25 07:45 Stool Clostridium difficile Toxin Assay - Final Complete 09/22/25 02:45 Voided Urine Urine Culture - Final Complete 09/21/25 15:19 Blood Blood Culture - Final Staphylococcus epidermidis Complete Problem List/Assessment/Plan Problem List/Assessment/Plan Possible upper GI bleed Acute gastroenteritis Septic shock likely from abdominal wound/UTI Bacteremia SWATI on CKD Plan - H&H stable, monitor and keep hemoglobin above 7 - Protonix 40 mg IV b.i.d. - NPO since the patient failed swallow evaluation - continue on Clinimix - plan for a possible EGD on Monday Plan discussed with Dr. Cross Plan discussed with: Patient, Other (ROSENDO Damon) Dietary Evaluation Review Comments: Nutrition Recommendation: 1) Advance diet as medically feasible 2) Clem 1 pk daily, nephro-dale 1 tab daily 3) Ensure clear 240ml TID 4) Monitor PO intake, lab values, weight trend, and I/O Expected Outcomes/Goals: Wound to improve GI symptoms to improve Intake to meet >75% estimated needs Lab values to improve FU 2-3 days ADRIA OWENS RESIDENT Sep 24, 2025 16:48
[2025-09-24] MEDS ORDERED: NOREPINEPHRINE 8 MG/250ML KIT 250 ML IV SCH (19:15)
[2025-09-24 21:07] LABS: Urine Amorphous Crystal FEW /hpf (None Seen); Urine Protein, UAD Negative (Negative)
[2025-09-24] MEDS: NOREPINEPHRINE 8 MG/250ML KIT 250 ML IV SCH (22:16)
[2025-09-25] VITALS (84 sets, daily range): BP systolic 83–138; BP diastolic 39–69; PULSE 63–80; RESP 8–16; TEMP 97.5–98.1; O2SAT 95–100
[2025-09-25 00:03] LABS: Protein, Urine 27.1 mg/dL (1-14)
[2025-09-25 04:21] LABS: Hematocrit 32.9 % (36.0-46.0); Hemoglobin 10.9 g/dL (12.2-16.2); Mean Corpuscular Hemoglobin 31.0 pg (28.0-32.0); Mean Corpuscular Volume 93.8 fL (80.0-100.0); Nucleated Red Blood Cells % 0.2 %
[2025-09-25 04:41] LABS: Alanine Aminotransferase 33 U/L (7-40); Alkaline Phosphatase 110 U/L (46-116); Anion Gap 15 (5-15); BUN/Creatinine Ratio 31.0 (10.0-20.0); Glucose 89 mg/dL (74-106); Magnesium 1.7 mg/dL (1.6-2.6); Sodium 140 mmol/L (136-145)
[2025-09-25 04:42] LABS: Bilirubin, Total 0.5 mg/dL (0.2-1.0)
[2025-09-25 04:50] LABS: Albumin 2.0 g/dL (3.2-4.8); Calcium 7.6 mg/dL (8.7-10.4); Carbon Dioxide 17 mmol/L (20-31); Chloride 108 mmol/L (98-107); Potassium 3.3 mmol/L (3.5-5.1); Total Protein 4.6 g/dL (5.7-8.2)
[2025-09-25 04:52] LABS: Blood Urea Nitrogen 144 mg/dL (9-23)
--- NOTE | 2025-09-25 05:40 | DVH ---
CHEST RADIOGRAPH Indication: aloc Technique: Single frontal view of the chest was obtained COMPARISON: XY CHEST PORTABLE on DOS: 09/21/25 FINDINGS: Lines and Tubes: Right central venous catheter in satisfactory position. Lungs: Mild pulmonary vascular congestion. Pleura: No effusion.No pneumothorax. Cardiomediastinal contours: Unremarkable Bones: Unremarkable IMPRESSION: Mild pulmonary vascular congestion.
[2025-09-25] MEDS: MAGNESIUM SULFATE 1GM/100ML 100 ML IV ONE (06:12)
[2025-09-25] MEDS: POTASSIUM PHOSPHATE 22 MEQ in SODIUM CHL 0.9% 100 ML IV ONE (08:38)
[2025-09-25] MEDS ORDERED: MORPHINE SULFATE INJ 2 MG/ml SYRG IV PRN (11:45)
--- NOTE | 2025-09-25 12:12 | DVHPN2 ---
Progress Note Date Seen: Sep 25, 2025 Resident Creating Document: ADRIA OWENS RESIDENT Medical Necessity Reason Pt with a Central, PICC or Fol: Yes The following are medically ne: Yap Catheter Subjective Review of Systems Patient seen and examined at bedside Alert and oriented x2 No nausea or vomiting Reports mild abdominal pain Dark Greenish liquid stool noted in the rectal tube Objective vital signs Vital Sign Date Time Temp Pulse Resp B/P (MAP) Pulse Ox O2 Delivery O2 Flow Rate FiO2 09/25/25 06:00 136/62 09/25/25 05:44 12 97 Room Air* 0 21 09/25/25 05:44 64 09/25/25 04:00 97.5 97.5 Total Intake and Output 09/24/25 09/24/25 09/25/25 15:00 23:00 07:00 Intake Total 1154.250 ml 1199.875 ml 1050.125 ml Output Total 1350 ml 1400 ml Balance 1154.250 ml -150.125 ml -349.875 ml medications Current Medications Medications Dose Ordered Sig/Merry Route Start Time Stop Time Status Last Admin Dose Admin Vancomycin HCl 0 ml @ 0 mls/hr PER PHARMACY IV 09/21/25 19:45 Diagnostic Test (Pha) 1 strip Q6HR 09/22/25 00:00 09/25/25 11:41 1 STRIP Insulin Human Regular Q6HR SC 09/22/25 00:00 09/22/25 12:00 3 UNITS Dextrose 50 ml UD PRN IV 09/21/25 19:45 Ondansetron HCl 4 mg Q4HP PRN IV 09/21/25 19:45 Morphine Sulfate 2 mg Q30M PRN IV 09/21/25 19:45 UNV Micafungin Sodium 100 mg/Sodium Chloride 100 ml @ 100 mls/hr DAILY IV 09/23/25 10:00 09/25/25 09:32 100 MLS/HR Amino Acids 0 ml @ 0 mls/hr PER PHARMACY IV 09/23/25 14:45 Amino Acids/ Electrolytes/ Dextrose 1,000 ml @ 41 mls/hr DAILY@2200 IV 09/23/25 22:00 09/24/25 21:57 41 MLS/HR Pantoprazole Sodium 40 mg BID IV 09/23/25 22:00 09/25/25 10:37 40 MG Norepinephrine Bitartrate 250 ml @ 1.875 mls/ hr Q24H IV 09/24/25 21:30 09/24/25 22:16 1.875 MLS/HR Morphine Sulfate 2 mg Q4HPRN PRN IV 09/25/25 11:45 UNV Ceftriaxone Sodium/Dextrose 50 ml @ 50 mls/hr DAILY IV 09/26/25 10:00 UNV Examination Gen - no pallor, no scleral icterus Skin - Patients skin is warm and dry. HEENT - normocephalic, atraumatic, dry mucous membranes. Neck - supple, no lymphadenopathy Pulmonary - B/L decreased breath sounds cardiovascular - regular S1,S2 heard GI - soft abdomen with tenderness to palpation in the lower quadrants with a visible wounds in the lower abdominal quadrant. Bowel sounds normoactive. Neurological - Patient is alert and oriented x2, following commands laboratory and microbiology Laboratory Tests 09/25/25 04:00 Test 09/25/25 04:00 Range/Units Serum Glucose 89 74-106 mg/dL Microbiology Date/Time Source Procedure Growth Status 09/22/25 14:18 Abdomen Gram Stain Pending Resulted 09/22/25 14:18 Wound Culture - Preliminary Proteus mirabilis Resulted 09/22/25 07:45 Stool Clostridium difficile Toxin Assay - Final Complete 09/22/25 02:45 Voided Urine Urine Culture - Final Complete 09/21/25 15:19 Blood Blood Culture - Final Staphylococcus epidermidis Complete Problem List/Assessment/Plan Problem List/Assessment/Plan Possible upper GI bleed Acute gastroenteritis Septic shock likely from abdominal wound/UTI Bacteremia SWATI on CKD Plan - H&H stable, monitor and keep hemoglobin above 7 - Protonix 40 mg IV b.i.d. - NPO since the patient failed swallow evaluation, swallow eval to be done again today - continue on Clinimix - plan for a EGD tomorrow Plan discussed with Dr. Cross Plan discussed with: Other (ROSENDO Damon) Dietary Evaluation Review Comments: Nutrition Recommendation: 1) Advance diet as medically feasible 2) Clem 1 pk daily, nephro-dale 1 tab daily 3) Ensure clear 240ml TID 4) Monitor PO intake, lab values, weight trend, and I/O Expected Outcomes/Goals: Wound to improve GI symptoms to improve Intake to meet >75% estimated needs Lab values to improve FU 2-3 days ADRIA OWENS RESIDENT Sep 25, 2025 12:12
--- NOTE | 2025-09-25 13:27 | DVHPN2 ---
Progress Note Date Seen: Sep 25, 2025 Resident Creating Document: JORJE CM RESDIENT Medical Necessity Reason Pt with a Central, PICC or Fol: Yes The following are medically ne: Ayp Catheter Subjective Review of Systems Seen and examined in ICU. Patient is oriented to place and person, feeling better than yesterday, and can provide more history. Objective vital signs Vital Sign Date Time Temp Pulse Resp B/P (MAP) Pulse Ox O2 Delivery O2 Flow Rate FiO2 09/25/25 06:00 136/62 09/25/25 05:44 12 97 Room Air* 0 21 09/25/25 05:44 64 09/25/25 04:00 97.5 97.5 Total Intake and Output 09/24/25 09/24/25 09/25/25 15:00 23:00 07:00 Intake Total 1154.250 ml 1199.875 ml 1050.125 ml Output Total 1350 ml 1400 ml Balance 1154.250 ml -150.125 ml -349.875 ml medications Current Medications Medications Dose Ordered Sig/Merry Route Start Time Stop Time Status Last Admin Dose Admin Vancomycin HCl 0 ml @ 0 mls/hr PER PHARMACY IV 09/21/25 19:45 Diagnostic Test (Pha) 1 strip Q6HR 09/22/25 00:00 09/25/25 11:41 1 STRIP Insulin Human Regular Q6HR SC 09/22/25 00:00 09/22/25 12:00 3 UNITS Dextrose 50 ml UD PRN IV 09/21/25 19:45 Ondansetron HCl 4 mg Q4HP PRN IV 09/21/25 19:45 Morphine Sulfate 2 mg Q30M PRN IV 09/21/25 19:45 UNV Micafungin Sodium 100 mg/Sodium Chloride 100 ml @ 100 mls/hr DAILY IV 09/23/25 10:00 09/25/25 09:32 100 MLS/HR Amino Acids 0 ml @ 0 mls/hr PER PHARMACY IV 09/23/25 14:45 Amino Acids/ Electrolytes/ Dextrose 1,000 ml @ 41 mls/hr DAILY@2200 IV 09/23/25 22:00 09/24/25 21:57 41 MLS/HR Pantoprazole Sodium 40 mg BID IV 09/23/25 22:00 09/25/25 10:37 40 MG Norepinephrine Bitartrate 250 ml @ 1.875 mls/ hr Q24H IV 09/24/25 21:30 09/24/25 22:16 1.875 MLS/HR Morphine Sulfate 2 mg Q4HPRN PRN IV 09/25/25 11:45 UNV Ceftriaxone Sodium/Dextrose 50 ml @ 50 mls/hr DAILY IV 09/26/25 10:00 UNV Examination General Appearance: Alert, Oriented X2, Cooperative, lethargic HEENT: Atraumatic, PERRLA, EOMI, Mucous membrane moist/pink Respiratory: Clear to auscultation, Normal air movement Cardiovascular: Regular rate, Normal S1, Normal S2, No murmurs, no chest wall tenderness Abdominal: Normal bowel sounds, Soft, No tenderness, No hepatospenomegaly, No masses Extremities: Bilateral lower limb of the feet are swollen, red (specifically the fingers) Skin: Diffuse skin ulcer on abdomen and bilateral lower limb, with a deep wound on the right side of abdomen, with black eschars on surfaces Neuro: Normal gait, Normal speech, Strength at 5/5 X4 ext, Normal tone, Sensation intact, Cranial nerves 3-12 NL, Reflexes 2+ Psych/Mental Status: Mental status NL, Mood NL laboratory and microbiology Laboratory Tests 09/25/25 04:00 Test 09/25/25 04:00 Range/Units Serum Glucose 89 74-106 mg/dL Microbiology Date/Time Source Procedure Growth Status 09/22/25 14:18 Abdomen Gram Stain Pending Resulted 09/22/25 14:18 Wound Culture - Preliminary Proteus mirabilis Resulted 09/22/25 07:45 Stool Clostridium difficile Toxin Assay - Final Complete 09/22/25 02:45 Voided Urine Urine Culture - Final Complete 09/21/25 15:19 Blood Blood Culture - Final Staphylococcus epidermidis Complete Labs and/or images reviewed: Labs reviewed by me, Image(s) reviewed by me Problem List/Assessment/Plan Problem List/Assessment/Plan SWATI, in the setting of septic shock/VMN Dehydration/Hypernatremia Septic shock, possibly due to infected wounds Metabolic/uremia encephalopathy, due to above Obesity Diabetes Non ST-elevation NV GI bleeding Lactic acidosis Plan/Recommendations: (Dr. Gay) * Kidney function is getting better, and serum sodium has normalized * 1/2 NS IV at with NaHCO3 at 75 mL/hour, 1 L * Renally dose antibiotics to GFR * We follow up with the patient and we will monitor kidney function Thank you for giving us the opportunity to take care of your patient. Please call back if you have any questions/concerns. Addendum Patient seen and examined, plan discussed with resident. Agree with above, we will follow closely no proteinuria,,hematuria Plan discussed with: Patient, Other (RN) Dietary Evaluation Review Comments: Nutrition Recommendation: 1) Advance diet as medically feasible 2) Clem 1 pk daily, nephro-dale 1 tab daily 3) Ensure clear 240ml TID 4) Monitor PO intake, lab values, weight trend, and I/O Expected Outcomes/Goals: Wound to improve GI symptoms to improve Intake to meet >75% estimated needs Lab values to improve FU 2-3 days JORJE CM Sep 25, 2025 13:27 RENETTA GAY MD Sep 25, 2025 17:34
[2025-09-25] MEDS: SODIUM BICARB 50mEq/50ml Vial 75 ML in SOD CHL 0.45% 1,000 ML IV ONE (13:50)
--- NOTE | 2025-09-25 17:16 | DVHPNRES ---
Progress Note Date Seen: Sep 25, 2025 Resident Creating Document: TA HOWELL RESIDENT Medical Necessity Reason Pt with a Central, PICC or Fol: Yes The following are medically ne: Yap Catheter Subjective Review of Systems Patient seen in the ICU. Patient has improvement of cognition and alert. Patient is off pressors, Kidney function improving Swallow eval to be done. EGD to be done tomorrow. IV Zosyn changed to ceftriaxone. Objective vital signs Vital Sign Date Time Temp Pulse Resp B/P (MAP) Pulse Ox O2 Delivery O2 Flow Rate FiO2 09/25/25 06:00 136/62 09/25/25 05:44 12 97 Room Air* 0 21 09/25/25 05:44 64 09/25/25 04:00 97.5 97.5 Total Intake and Output 09/24/25 09/24/25 09/25/25 15:00 23:00 07:00 Intake Total 1154.250 ml 1199.875 ml 1050.125 ml Output Total 1350 ml 1400 ml Balance 1154.250 ml -150.125 ml -349.875 ml medications Current Medications Medications Dose Ordered Sig/Merry Route Start Time Stop Time Status Last Admin Dose Admin Vancomycin HCl 0 ml @ 0 mls/hr PER PHARMACY IV 09/21/25 19:45 Diagnostic Test (Pha) 1 strip Q6HR 09/22/25 00:00 09/25/25 11:41 1 STRIP Insulin Human Regular Q6HR SC 09/22/25 00:00 09/22/25 12:00 3 UNITS Dextrose 50 ml UD PRN IV 09/21/25 19:45 Ondansetron HCl 4 mg Q4HP PRN IV 09/21/25 19:45 Morphine Sulfate 2 mg Q30M PRN IV 09/21/25 19:45 UNV Micafungin Sodium 100 mg/Sodium Chloride 100 ml @ 100 mls/hr DAILY IV 09/23/25 10:00 09/25/25 09:32 100 MLS/HR Amino Acids 0 ml @ 0 mls/hr PER PHARMACY IV 09/23/25 14:45 Amino Acids/ Electrolytes/ Dextrose 1,000 ml @ 41 mls/hr DAILY@2200 IV 09/23/25 22:00 09/24/25 21:57 41 MLS/HR Pantoprazole Sodium 40 mg BID IV 09/23/25 22:00 11/13/25 10:37 40 MG Norepinephrine Bitartrate 250 ml @ 1.875 mls/ hr Q24H IV 09/24/25 21:30 09/24/25 22:16 1.875 MLS/HR Morphine Sulfate 2 mg Q4HPRN PRN IV 09/25/25 11:45 Ceftriaxone Sodium/Dextrose 50 ml @ 50 mls/hr DAILY IV 09/26/25 10:00 Examination Examination General Appearance: Alert, Oriented X3, Cooperative, No acute distress HEENT: EOMI Respiratory: Clear to auscultation, Normal air movement Cardiovascular: Regular rate, Normal S1, Normal S2 Abdominal: Normal bowel sounds, multiple striae/present on the abdomen, 2 cm deep ulcerative wound present on the right lower quadrant, sacral ulcer stage II present on admission, multiple purple color macular rash present on lower extremity and arm Extremities: No cyanosis, No edema, Normal pulses, No tenderness/swelling Skin: No rashes, No breakdown Neuro: More alert laboratory and microbiology Laboratory Tests 09/25/25 04:00 Test 09/25/25 04:00 Range/Units Serum Glucose 89 74-106 mg/dL Microbiology Date/Time Source Procedure Growth Status 09/24/25 20:40 Nose MRSA Screen - Final Complete 09/22/25 07:45 Stool Clostridium difficile Toxin Assay - Final Complete 09/22/25 02:45 Voided Urine Urine Culture - Final Complete 09/21/25 15:19 Blood Blood Culture - Final Staphylococcus epidermidis Complete Problem List/Assessment/Plan Problem List/Assessment/Plan Neurology # metabolic/uremic encephalopathy likely due to sepsis and uremia, hypernatremia, improving Head CT Correct the underlying cause # mechanical fall Head CT Cardiology # shock, likely septic shock - currently on norepinephrine at 2 microgram/minute # hypertension currently in shock, improving # NSTEMI type 2 likely due to shock/SWATI Monitor Infectious disease # sepsis with septic shock likely due to UTI/wound infection -wound culture, blood culture, urine culture IV antibiotics Switched to D5 half NS at 100 cc/hour # multiple wound infection ? Ecthyma gangrenosum, proteus infection # ulcerative wound infection on right lower abdominal quadrant -wound culture IV Zosyn changed to ceftriaxone(09/25) IV micafungin Endocrine # diabetes mellitus type 2 Sliding scale insulin Nephrology # SWATI likely due to sepsis, unknown baseline function -nephrology on board : If no improvement in renal function in next 24 to 48 hours we will consider dialysis -Avod nephrotoxic drugs -monitor # anion gap metabolic acidosis with partial compensatory respiratory alkalosis Monitor ABG # hyperkalemia Corrected #hypokalemia -corrected with IV potassium -Monitor BMP # hypernatremia, Likely acute, improved -Switch to D5 half NS at 150 cc per # Probable right adrenal myelolipoma Seen on CT GI # GI bleed -FOBT positive GI on board Started on IV Protonix 40 mg b.i.d. # mild transaminitis likely due to shock will monitor Hematology oncology # thrombocytopenia likely due to sepsis Monitor # coagulopathy likely due to sepsis Monitor Urology # complicated UTI Urine Cultures and IV antibiotics Endocrine # Morbid Obesity -will certified alcohol drug counselor on weight loss once more alert #DVT prophylaxis -Lovenox currently on hold because of GI bleed SCDs Lines Right IJ CVC placed on 09/21/2025 Yap's catheter placed on 09/21/2025 Drips Norepinephrine D5 half NS Patient has had improvement in kidney function, currently norepinephrine at 2 microgram/minute, improvement in the alertness and cognitive function, wound culture growing Proteus pansensitive. Code status, discussed with family for greater than 21 minutes, full code Family updated about the condition of the patient over phone. Critical care time excluding procedures greater than 61 minutes Case discussed with Dr. Correa Plan discussed with: Patient Dietary Evaluation Review Comments: Nutrition Recommendation: 1) Advance diet as medically feasible 2) Clem 1 pk daily, nephro-dale 1 tab daily 3) Ensure clear 240ml TID 4) Monitor PO intake, lab values, weight trend, and I/O Expected Outcomes/Goals: Wound to improve GI symptoms to improve Intake to meet >75% estimated needs Lab values to improve FU 2-3 days Date of Service: Sep 25, 2025 Billing Provider: BEATRIZ CORREA MD Common Visit Codes: 17490-[id number] CARE 30-74 MIN TA HOWELL Sep 25, 2025 17:16 BEATRIZ CORREA MD Sep 27, 2025 18:21
[2025-09-26] VITALS (59 sets, daily range): BP systolic 89–152; BP diastolic 43–95; PULSE 66–83; RESP 10–25; TEMP 97.5–98.2; O2SAT 94–99
[2025-09-26 04:09] LABS: Hematocrit 32.7 % (36.0-46.0); Hemoglobin 10.9 g/dL (12.2-16.2); Mean Corpuscular Hemoglobin 31.0 pg (28.0-32.0); Mean Corpuscular Volume 92.8 fL (80.0-100.0); Nucleated Red Blood Cells % 0.3 %
[2025-09-26 04:18] LABS: Alanine Aminotransferase 27 U/L (7-40); Anion Gap 12 (5-15); BUN/Creatinine Ratio 29.1 (10.0-20.0); Glucose 76 mg/dL (74-106); Magnesium 1.8 mg/dL (1.6-2.6); Sodium 142 mmol/L (136-145)
[2025-09-26 04:19] LABS: Albumin 2.2 g/dL (3.2-4.8); Alkaline Phosphatase 117 U/L (46-116); Bilirubin, Total 0.6 mg/dL (0.2-1.0); Calcium 7.5 mg/dL (8.7-10.4); Carbon Dioxide 19 mmol/L (20-31); Chloride 111 mmol/L (98-107); Potassium 3.2 mmol/L (3.5-5.1); Total Protein 5.1 g/dL (5.7-8.2)
[2025-09-26 04:20] LABS: Blood Urea Nitrogen 106 mg/dL (9-23)
[2025-09-26] MEDS: POTASSIUM CHL 20MEQ/100ML 100 ML IV ONE (04:58)
[2025-09-26] MEDS: MAGNESIUM SULFATE 1GM/100ML 100 ML IV ONE (04:59)
[2025-09-26] MEDS: PROPOFOL 0 ML IV ONE (08:51)
--- NOTE | 2025-09-26 10:39 | DVHPN2 ---
Progress Note - Dictate Date Seen: Sep 26, 2025 Medical Necessity Reason Pt with a Central, PICC or Fol: Yes The following are medically ne: Yap Catheter Subjective Patient is slightly more alert and awake However she has no cough or gag reflux Patient was taken off pressors however this morning she had to be restarted on Levophed because of hypotension Renal function and leukocytosis is improving H&H is stable and stool for occult blood was positive Troponins were elevated patient had non-STEMI vital signs Vital Sign Date Time Temp Pulse Resp B/P (MAP) Pulse Ox O2 Delivery O2 Flow Rate FiO2 09/26/25 10:00 79 09/26/25 10:00 14 96 Room Air* 0 21 09/26/25 08:30 93/56 (68) 09/26/25 08:00 98.0 98.0 Total Intake and Output 09/25/25 09/25/25 09/26/25 15:00 23:00 07:00 Intake Total 1188.00 ml 988 ml 854.875 ml Output Total 1625 ml 1300 ml Balance 1188.00 ml -637 ml -445.125 ml medications Current Medications Medications Dose Ordered Sig/Merry Route Start Time Stop Time Status Last Admin Dose Admin Vancomycin HCl 0 ml @ 0 mls/hr PER PHARMACY IV 09/21/25 19:45 Diagnostic Test (Pha) 1 strip Q6HR 09/22/25 00:00 09/26/25 05:10 1 STRIP Insulin Human Regular Q6HR SC 09/22/25 00:00 09/22/25 12:00 3 UNITS Dextrose 50 ml UD PRN IV 09/21/25 19:45 Ondansetron HCl 4 mg Q4HP PRN IV 09/21/25 19:45 Morphine Sulfate 2 mg Q30M PRN IV 09/21/25 19:45 UNV Micafungin Sodium 100 mg/Sodium Chloride 100 ml @ 100 mls/hr DAILY IV 09/23/25 10:00 09/26/25 10:20 100 MLS/HR Amino Acids 0 ml @ 0 mls/hr PER PHARMACY IV 09/23/25 14:45 Amino Acids/ Electrolytes/ Dextrose 1,000 ml @ 41 mls/hr DAILY@2200 IV 09/23/25 22:00 09/25/25 21:05 41 MLS/HR Pantoprazole Sodium 40 mg BID IV 09/23/25 22:00 09/26/25 09:15 40 MG Norepinephrine Bitartrate 250 ml @ 1.875 mls/ hr Q24H IV 09/24/25 21:30 09/24/25 22:16 1.875 MLS/HR Morphine Sulfate 2 mg Q4HPRN PRN IV 09/25/25 11:45 Ceftriaxone Sodium/Dextrose 50 ml @ 50 mls/hr DAILY IV 09/26/25 10:00 09/26/25 09:15 50 MLS/HR objective Gen - no pallor, no scleral icterus Skin - Patients skin is warm and dry. HEENT - normocephalic, atraumatic, dry mucous membranes. Neck - supple, no lymphadenopathy Pulmonary - B/L decreased breath sounds cardiovascular - regular S1,S2 heard GI - soft abdomen with tenderness to palpation in the lower quadrants with a visible wounds in the lower abdominal quadrant. Bowel sounds normoactive. Neurological - Patient is alert and oriented x2, following commands laboratory and microbiology Laboratory Tests 09/26/25 09:36 09/26/25 03:20 Test 09/26/25 03:20 Range/Units Serum Glucose 76 74-106 mg/dL Problems(with codes): (1) Anemia (2) Heme positive stool (3) Altered level of consciousness (4) Sepsis (5) Acute renal failure Prognosis Plan There was a tentative plan for a possible endoscopy today However the anesthesia doctor flows the patient is still at high risk because of her hypotension need for pressors and recent non-STEMI VT There was no active GI bleeding H&H is stable Therefore we will defer the endoscopic evaluation for at this time Continue to monitor labs Patient will be started on IV TPN Continue cardiopulmonary stabilization Repeat swallow evaluation next week Dietary Evaluation Review Comments: Nutrition Recommendation: 1) Advance diet as medically feasible 2) Clem 1 pk daily, nephro-dale 1 tab daily 3) Ensure clear 240ml TID 4) Monitor PO intake, lab values, weight trend, and I/O Expected Outcomes/Goals: Wound to improve GI symptoms to improve Intake to meet >75% estimated needs Lab values to improve FU 2-3 days Plan discussed with: Other (ICU nurse) CHRIS DE SOUZA MD Sep 26, 2025 10:39
[2025-09-26] MEDS ORDERED: TPN PER PHARMACY 0 ML IV SCH (11:00)
--- NOTE | 2025-09-26 11:40 | DVHPNRES ---
Progress Note Date Seen: Sep 26, 2025 Resident Creating Document: TA HOWELL RESIDENT Medical Necessity Reason Pt with a Central, PICC or Fol: Yes The following are medically ne: Yap Catheter Subjective Review of Systems 09/25/2025: Patient seen in ICU patient had improvement of patient is off pressors, kidney function improving, swallow eval to be done. Possible EGD tomorrow. IV Zosyn was changed to ceftriaxone. : Patient seen in ICU. Patient's kidney function improving. Yesterday swallow eval failed. We will try again today. EGD postponed due to patient requiring pressor. Patient started on TPN. Objective vital signs Vital Sign Date Time Temp Pulse Resp B/P (MAP) Pulse Ox O2 Delivery O2 Flow Rate FiO2 09/26/25 10:30 76 14 110/61 (77) 95 09/26/25 10:00 Room Air* 0 21 09/26/25 08:00 98.0 98.0 Total Intake and Output 09/25/25 09/25/25 09/26/25 15:00 23:00 07:00 Intake Total 1188.00 ml 988 ml 854.875 ml Output Total 1625 ml 1300 ml Balance 1188.00 ml -637 ml -445.125 ml medications Current Medications Medications Dose Ordered Sig/Merry Route Start Time Stop Time Status Last Admin Dose Admin Vancomycin HCl 0 ml @ 0 mls/hr PER PHARMACY IV 09/21/25 19:45 Diagnostic Test (Pha) 1 strip Q6HR 09/22/25 00:00 09/26/25 05:10 1 STRIP Insulin Human Regular Q6HR SC 09/22/25 00:00 09/22/25 12:00 3 UNITS Dextrose 50 ml UD PRN IV 09/21/25 19:45 Ondansetron HCl 4 mg Q4HP PRN IV 09/21/25 19:45 Morphine Sulfate 2 mg Q30M PRN IV 09/21/25 19:45 UNV Micafungin Sodium 100 mg/Sodium Chloride 100 ml @ 100 mls/hr DAILY IV 09/23/25 10:00 09/26/25 10:20 100 MLS/HR Amino Acids 0 ml @ 0 mls/hr PER PHARMACY IV 09/23/25 14:45 Amino Acids/ Electrolytes/ Dextrose 1,000 ml @ 41 mls/hr DAILY@2200 IV 09/23/25 22:00 09/25/25 21:05 41 MLS/HR Pantoprazole Sodium 40 mg BID IV 09/23/25 22:00 09/26/25 09:15 40 MG Norepinephrine Bitartrate 250 ml @ 1.875 mls/ hr Q24H IV 09/24/25 21:30 09/24/25 22:16 1.875 MLS/HR Morphine Sulfate 2 mg Q4HPRN PRN IV 09/25/25 11:45 Ceftriaxone Sodium/Dextrose 50 ml @ 50 mls/hr DAILY IV 09/26/25 10:00 09/26/25 09:15 50 MLS/HR Amino Acids 0 ml @ 0 mls/hr PER PHARMACY IV 09/26/25 11:00 UNV Examination General: Patient alert and oriented in person, place and time. Patient following commands. HEENT: Normocephalic, atraumatic, moist mucous membranes Respiratory/pulmonary: Clear lungs bilaterally, vesicular murmurs present in almost all lung dunne, no associated crackles or wheezes. Cardiovascular: Normal heart sounds S1 and S2 with no associated murmurs Abdomen: Abdomen nondistended, there is no pain to palpation in any of the abdominal quadrants, no palpable masses.Obese abdomen Extremities: Bilateral lower limb of the feet are swollen, red (specifically the fingers Peripheral Pulses: 3+ Radial (R). 3+ Radial (L). 3+ Dorsalis pedis (R). 3+ Dorsalis pedis(L) Skin: Diffuse skin ulcer on abdomen and bilateral lower limb, with a deep wound on the right side of abdomen, with black eschars on surfaces Neurological: Intact cranial nerves with no focal neurologic deficits laboratory and microbiology Laboratory Tests 09/26/25 09:36 09/26/25 03:20 Test 09/26/25 03:20 Range/Units Serum Glucose 76 74-106 mg/dL Microbiology Date/Time Source Procedure Growth Status 09/24/25 23:25 Blood Blood Culture - Preliminary NO GROWTH AFTER 24 HOURS OF INCUBATION. Resulted 09/24/25 20:40 Nose MRSA Screen - Final Complete 09/22/25 07:45 Stool Clostridium difficile Toxin Assay - Final Complete 09/22/25 02:45 Voided Urine Urine Culture - Final Complete Problem List/Assessment/Plan Problem List/Assessment/Plan Neurology # metabolic/uremic encephalopathy likely due to sepsis and uremia, hypernatremia, improving Head CT Correct the underlying cause # mechanical fall Head CT Cardiology # shock, likely septic shock - currently on norepinephrine at 2 microgram/minute # hypertension currently in shock, improving # NSTEMI type 2 likely due to shock/SWATI Monitor Infectious disease # sepsis with septic shock likely due to UTI/wound infection -wound culture, blood culture, urine culture IV antibiotics Switched to D5 half NS at 100 cc/hour # multiple wound infection ? Ecthyma gangrenosum, proteus infection # ulcerative wound infection on right lower abdominal quadrant -wound culture IV Zosyn changed to ceftriaxone(09/25) IV micafungin, IV vancomycin Endocrine # diabetes mellitus type 2 Sliding scale insulin Nephrology # SWATI likely due to sepsis, unknown baseline function -nephrology on board : If no improvement in renal function in next 24 to 48 hours we will consider dialysis -Avod nephrotoxic drugs -monitor # anion gap metabolic acidosis with partial compensatory respiratory alkalosis Monitor ABG # hyperkalemia Corrected #hypokalemia -corrected with IV potassium -Monitor BMP # hypernatremia, Likely acute, improved -Switch to D5 half NS at 150 cc per # Probable right adrenal myelolipoma Seen on CT GI # GI bleed -FOBT positive GI on board - planning for EGD Started on IV Protonix 40 mg b.i.d. # mild transaminitis likely due to shock will monitor Hematology oncology # thrombocytopenia likely due to sepsis Monitor # coagulopathy likely due to sepsis Monitor Urology # complicated UTI Urine Cultures and IV antibiotics Endocrine # Morbid Obesity -will crisis intervention counselor on weight loss once more alert #DVT prophylaxis -Lovenox currently on hold because of GI bleed SCDs Lines Right IJ CVC placed on 09/21/2025 Yap's catheter placed on 09/21/2025 Diet: TPN Drips Norepinephrine D5 half NS Code status, discussed with family for greater than 21 minutes, full code Family updated about the condition of the patient over phone. Critical care time excluding procedures greater than 61 minutes Case discussed with Dr. Bee Plan discussed with: Patient My Orders My Orders Orders - TA HOWELL RESIDENT Procedure Category Date Status Time Magnesium LAB 09/26/25 Logged 11:32 Dietary Evaluation Review Comments: Nutrition Recommendation: 1) Advance diet as medically feasible 2) Clem 1 pk daily, nephro-dale 1 tab daily 3) Ensure clear 240ml TID 4) Monitor PO intake, lab values, weight trend, and I/O Expected Outcomes/Goals: Wound to improve GI symptoms to improve Intake to meet >75% estimated needs Lab values to improve FU 2-3 days TA HOWELL RESIDENT Sep 26, 2025 11:40
[2025-09-26] MEDS: ACETAMINOPHEN IV 1000 MG/100ML (10MG/ML) IV ONE (14:05)
--- NOTE | 2025-09-26 17:29 | DVHPN2 ---
Progress Note Date Seen: Sep 26, 2025 Resident Creating Document: JORJE CM RESDIENT Medical Necessity Reason Pt with a Central, PICC or Fol: Yes The following are medically ne: Yap Catheter Subjective Review of Systems Seen and examined in ICU. Patient is oriented to place and person, feeling better than yesterday, and can provide more history. Objective vital signs Vital Sign Date Time Temp Pulse Resp B/P (MAP) Pulse Ox O2 Delivery O2 Flow Rate FiO2 09/26/25 16:00 72 09/26/25 16:00 16 97 Room Air* 0 21 09/26/25 14:30 104/55 (71) 09/26/25 12:00 98.2 98.2 Total Intake and Output 09/25/25 09/25/25 09/26/25 15:00 23:00 07:00 Intake Total 1188.00 ml 988 ml 854.875 ml Output Total 1625 ml 1300 ml Balance 1188.00 ml -637 ml -445.125 ml medications Current Medications Medications Dose Ordered Sig/Merry Route Start Time Stop Time Status Last Admin Dose Admin Vancomycin HCl 0 ml @ 0 mls/hr PER PHARMACY IV 09/21/25 19:45 Diagnostic Test (Pha) 1 strip Q6HR 09/22/25 00:00 09/26/25 11:58 1 STRIP Insulin Human Regular Q6HR SC 09/22/25 00:00 09/22/25 12:00 3 UNITS Dextrose 50 ml UD PRN IV 09/21/25 19:45 Ondansetron HCl 4 mg Q4HP PRN IV 09/21/25 19:45 Morphine Sulfate 2 mg Q30M PRN IV 09/21/25 19:45 UNV Micafungin Sodium 100 mg/Sodium Chloride 100 ml @ 100 mls/hr DAILY IV 09/23/25 10:00 09/26/25 10:20 100 MLS/HR Amino Acids 0 ml @ 0 mls/hr PER PHARMACY IV 09/23/25 14:45 Amino Acids/ Electrolytes/ Dextrose 1,000 ml @ 41 mls/hr DAILY@2200 IV 09/23/25 22:00 09/25/25 21:05 41 MLS/HR Pantoprazole Sodium 40 mg BID IV 09/23/25 22:00 09/26/25 09:15 40 MG Norepinephrine Bitartrate 250 ml @ 1.875 mls/ hr Q24H IV 09/24/25 21:30 09/24/25 22:16 1.875 MLS/HR Morphine Sulfate 2 mg Q4HPRN PRN IV 09/25/25 11:45 Ceftriaxone Sodium/Dextrose 50 ml @ 50 mls/hr DAILY IV 09/26/25 10:00 09/26/25 09:15 50 MLS/HR Amino Acids 0 ml @ 0 mls/hr PER PHARMACY IV 09/26/25 11:00 UNV Examination General Appearance: Alert, Oriented X2, Cooperative, lethargic HEENT: Atraumatic, PERRLA, EOMI, Mucous membrane moist/pink Respiratory: Clear to auscultation, Normal air movement Cardiovascular: Regular rate, Normal S1, Normal S2, No murmurs, no chest wall tenderness Abdominal: Normal bowel sounds, Soft, No tenderness, No hepatospenomegaly, No masses Extremities: Bilateral lower limb of the feet are swollen, red (specifically the fingers) Skin: Diffuse skin ulcer on abdomen and bilateral lower limb, with a deep wound on the right side of abdomen, with black eschars on surfaces Neuro: Normal gait, Normal speech, Strength at 5/5 X4 ext, Normal tone, Sensation intact, Cranial nerves 3-12 NL, Reflexes 2+ Psych/Mental Status: Mental status NL, Mood NL laboratory and microbiology Laboratory Tests 09/26/25 09:36 09/26/25 03:20 Test 09/26/25 03:20 Range/Units Serum Glucose 76 74-106 mg/dL Microbiology Date/Time Source Procedure Growth Status 09/24/25 23:25 Blood Blood Culture - Preliminary NO GROWTH AFTER 24 HOURS OF INCUBATION. Resulted 09/24/25 20:40 Nose MRSA Screen - Final Complete 09/24/25 20:25 Urine - Yap Port Urine Culture - Preliminary No growth Resulted 09/22/25 07:45 Stool Clostridium difficile Toxin Assay - Final Complete Labs and/or images reviewed: Labs reviewed by me, Image(s) reviewed by me Problem List/Assessment/Plan Problem List/Assessment/Plan SWATI, in the setting of septic shock/VMN Dehydration/Hypernatremia Septic shock, possibly due to infected wounds Metabolic/uremia encephalopathy, due to above Obesity Diabetes Non ST-elevation FL GI bleeding Lactic acidosis Plan/Recommendations: (Dr. Gay) * Kidney function is getting better, and serum sodium has normalized * 1/2 NS IV at with 75 mEq NaHCO3 at 75 mL/hour, 1 L * Renally dose antibiotics to GFR * We follow up with the patient and we will monitor kidney function Thank you for giving us the opportunity to take care of your patient. Please call back if you have any questions/concerns. Addendum Patient seen and examined, plan discussed with resident. Agree with above, we will follow closely Plan discussed with: Patient, Other (RN) Dietary Evaluation Review Comments: Nutrition Recommendation: 1) Advance diet as medically feasible 2) Clem 1 pk daily, nephro-dale 1 tab daily 3) Ensure clear 240ml TID 4) Monitor PO intake, lab values, weight trend, and I/O Expected Outcomes/Goals: Wound to improve GI symptoms to improve Intake to meet >75% estimated needs Lab values to improve FU 2-3 days JORJE CM Sep 26, 2025 17:29 RENETTA GAY MD Sep 26, 2025 18:23
[2025-09-26] MEDS: VANCOMYCIN 500mg/100mL 100 ML IV ONE (18:00)
[2025-09-26] MEDS: SODIUM BICARB 50mEq/50ml Vial 75 ML in SOD CHL 0.45% 1,000 ML IV ONE (19:49)
[2025-09-27] VITALS (74 sets, daily range): BP systolic 91–136; BP diastolic 48–84; PULSE 70–99; RESP 9–24; TEMP 96.3–98.5; O2SAT 91–99
[2025-09-27 04:44] LABS: Hematocrit 32.6 % (36.0-46.0); Hemoglobin 11.0 g/dL (12.2-16.2); Mean Corpuscular Hemoglobin 31.3 pg (28.0-32.0); Mean Corpuscular Volume 92.8 fL (80.0-100.0); Nucleated Red Blood Cells % 0.2 %
[2025-09-27 05:05] LABS: Triglycerides 160.0 mg/dL (< 150)
[2025-09-27 05:46] LABS: Alanine Aminotransferase 29 U/L (7-40); Anion Gap 15 (5-15); BUN/Creatinine Ratio 39.6 (10.0-20.0); Bilirubin, Total 0.4 mg/dL (0.2-1.0); Magnesium 1.6 mg/dL (1.6-2.6)
[2025-09-27 05:47] LABS: Carbon Dioxide 19 mmol/L (20-31); Chloride 112 mmol/L (98-107); Potassium 3.1 mmol/L (3.5-5.1); Sodium 146 mmol/L (136-145)
[2025-09-27 05:48] LABS: Albumin 2.1 g/dL (3.2-4.8); Alkaline Phosphatase 133 U/L (46-116); Calcium 7.3 mg/dL (8.7-10.4); Glucose 72 mg/dL (74-106); Total Protein 4.9 g/dL (5.7-8.2)
[2025-09-27 05:51] LABS: Blood Urea Nitrogen 110 mg/dL (9-23)
[2025-09-27] MEDS: MAGNESIUM SULFATE 1GM/100ML 100 ML IV ONE (06:34)
[2025-09-27] MEDS: POTASSIUM CHL 20MEQ/100ML 100 ML IV SCH (06:34)
[2025-09-27] MEDS ORDERED: DEXTROSE (50%) 50ML SYRG IV SCH (08:45)
[2025-09-27] MEDS: ACCU-CHEK COMFORT CURVE STRIP VI SCH (12:59)
[2025-09-27] MEDS: InsuLIN REG 1unit/0.01ml Soln (100units/ml) SC SCH (12:59)
[2025-09-27] MEDS: SODIUM CHLORIDE 0.9% 250 ML IV ONE (16:43)
--- NOTE | 2025-09-27 18:22 | DVHPNRES ---
Progress Note Date Seen: Sep 27, 2025 Resident Creating Document: BARRY NUNES RESIDENT Medical Necessity Reason Pt with a Central, PICC or Fol: Yes The following are medically ne: Yap Catheter Subjective Review of Systems Patient seen and examined bedside Patient is more alert today Off pressors since last night We will transfer to telemetry Swallow evaluation done, patient started on pureed diet Objective vital signs Vital Sign Date Time Temp Pulse Resp B/P (MAP) Pulse Ox O2 Delivery O2 Flow Rate FiO2 09/27/25 17:29 96.3 78 16 115/82 (93) 91 96.3 09/27/25 16:05 Room Air* 0 21 Total Intake and Output 09/26/25 09/26/25 09/27/25 15:00 23:00 07:00 Intake Total 493.000 ml 639.250 ml 1078 ml Output Total 1375 ml 1150 ml Balance 493.000 ml -735.750 ml -72 ml medications Current Medications Medications Dose Ordered Sig/Merry Route Start Time Stop Time Status Last Admin Dose Admin Vancomycin HCl 0 ml @ 0 mls/hr PER PHARMACY IV 09/21/25 19:45 Ondansetron HCl 4 mg Q4HP PRN IV 09/21/25 19:45 Morphine Sulfate 2 mg Q30M PRN IV 09/21/25 19:45 UNV Micafungin Sodium 100 mg/Sodium Chloride 100 ml @ 100 mls/hr DAILY IV 09/23/25 10:00 09/27/25 09:08 100 MLS/HR Amino Acids/ Electrolytes/ Dextrose 1,000 ml @ 41 mls/hr DAILY@2200 IV 09/23/25 22:00 09/27/25 21:59 09/26/25 21:46 41 MLS/HR Pantoprazole Sodium 40 mg BID IV 09/23/25 22:00 09/27/25 09:07 40 MG Norepinephrine Bitartrate 250 ml @ 1.875 mls/ hr Q24H IV 09/24/25 21:30 09/24/25 22:16 1.875 MLS/HR Morphine Sulfate 2 mg Q4HPRN PRN IV 09/25/25 11:45 Ceftriaxone Sodium/Dextrose 50 ml @ 50 mls/hr DAILY IV 09/26/25 10:00 09/27/25 09:08 50 MLS/HR Amino Acids 0 ml @ 0 mls/hr PER PHARMACY IV 09/26/25 11:00 Diagnostic Test (Pha) 1 strip Q6HR 09/27/25 12:00 09/27/25 12:59 1 STRIP Insulin Human Regular FOLLOW SLIDING SCALE Q6HR SC 09/27/25 12:00 Dextrose 50 ml UD IV 09/27/25 08:45 Fat Emulsion Intravenous 50 ml/ Potassium Acetate 40 meq/Potassium Phosphate 40 meq/ Calcium Gluconate 4.65 meq/ Magnesium Sulfate 12 meq/ Multivitamins 10 ml/Chromium/ Copper/Manganese/ Zinc 1 ml/Amino Acids/Dextrose/ Purified Water 1,153.0909 ml @ 48 mls/hr Q24H2M IV 09/27/25 22:00 09/28/25 21:59 Examination Examination General Appearance: Alert, Oriented X3, Cooperative, No acute distress HEENT: EOMI Respiratory: Clear to auscultation, Normal air movement Cardiovascular: Regular rate, Normal S1, Normal S2 Abdominal: Normal bowel sounds, multiple striae/present on the abdomen, 2 cm deep ulcerative wound present on the right lower quadrant, sacral ulcer stage II present on admission, multiple purple color macular rash present on lower extremity and arm Extremities: No cyanosis, No edema, Normal pulses, No tenderness/swelling Skin: No rashes, No breakdown Neuro: Confused, improved laboratory and microbiology Laboratory Tests 09/27/25 04:00 Test 09/27/25 04:00 Range/Units Serum Glucose 72 L 74-106 mg/dL Microbiology Date/Time Source Procedure Growth Status 09/24/25 23:25 Blood Blood Culture - Preliminary NO GROWTH AFTER 48 HOURS OF INCUBATION. Resulted 09/24/25 20:40 Nose MRSA Screen - Final Complete 09/24/25 20:25 Urine - Yap Port Urine Culture - Final Complete 09/22/25 07:45 Stool Clostridium difficile Toxin Assay - Final Complete Labs and/or images reviewed: Labs reviewed by me, Image(s) reviewed by me Problem List/Assessment/Plan Problem List/Assessment/Plan Assessment/plan Neurology # metabolic/uremic encephalopathy likely due to sepsis and uremia, hypernatremia, improving Head CT Correct the underlying cause # mechanical fall Head CT Cardiology # shock, likely septic shock - off pressors # hypertension currently in shock, improving # NSTEMI type 2 likely due to shock/SWATI Monitor Infectious disease # sepsis with septic shock likely due to UTI/wound infection -wound culture, blood culture, urine culture IV antibiotics Switched to D5 half NS at 100 cc/hour # multiple wound infection ? Ecthyma gangrenosum # ulcerative wound infection on right lower abdominal quadrant -wound culture IV antibiotics IV micafungin Endocrine # diabetes mellitus type 2 Sliding scale insulin Nephrology # SWATI likely due to sepsis, unknown baseline function -nephrology on board : If no improvement in renal function in next 24 to 48 hours we will consider dialysis -Avod nephrotoxic drugs -monitor # anion gap metabolic acidosis with partial compensatory respiratory alkalosis Monitor ABG # hyperkalemia Corrected #hypokalemia -corrected with IV potassium -Monitor BMP # hypernatremia, Likely acute, improved -Switch to D5 half NS at 150 cc per # Probable right adrenal myelolipoma Seen on CT GI # GI bleed -FOBT positive GI on board Started on IV Protonix 40 mg b.i.d. # mild transaminitis likely due to shock will monitor Hematology oncology # thrombocytopenia likely due to sepsis Monitor # coagulopathy likely due to sepsis Monitor Urology # complicated UTI Urine Cultures and IV antibiotics Endocrine # Morbid Obesity -will senior counsel commercial on weight loss once more alert #DVT prophylaxis -Lovenox currently on hold because of GI bleed SCDs Lines Right IJ CVC placed on 09/21/2025 Yap's catheter placed on 09/21/2025 Drips Norepinephrine D5 half NS Nutrition Started on TPN diet by GI Passed swallow evaluation We will start pureed diet Patient has had improvement in kidney function, improvement in the alertness and cognitive function, wound culture growing Proteus pansensitive. Patient is more alert today Off pressors since last night We will transfer to telemetry Swallow evaluation done, patient started on pureed diet Code status, discussed with family for greater than 21 minutes, full code Critical care time excluding procedures greater than 61 minutes Case discussed with Dr. Crowder Plan discussed with: Other My Orders My Orders Orders - BARRY NUNES RESIDENT Procedure Category Date Status Time Transfer Orders XFER 09/27/25 Transmitted 11:21 Pureed DIET 09/27/25 Transmitted Dinner Dietary Evaluation Review Comments: Nutrition Recommendation: 1) Advance diet as medically feasible 2) Clem 1 pk daily, nephro-dale 1 tab daily 3) Ensure clear 240ml TID 4) Monitor PO intake, lab values, weight trend, and I/O Expected Outcomes/Goals: Wound to improve GI symptoms to improve Intake to meet >75% estimated needs Lab values to improve FU 2-3 days BARRY NUNES RESIDENT Sep 27, 2025 18:22
[2025-09-27] MEDS: D5W 5% 1,000 ML IV SCH (20:15)
[2025-09-27] MEDS: TPN PER PHARMACY IV NR (22:45)
[2025-09-28] VITALS (8 sets, daily range): BP systolic 96–142; BP diastolic 59–84; PULSE 82–103; RESP 16–22; TEMP 97.4–98.4; O2SAT 97–99
[2025-09-28 06:56] LABS: Nucleated Red Blood Cells % 0.2 %
[2025-09-28 06:58] LABS: Hematocrit 32.0 % (36.0-46.0); Hemoglobin 10.8 g/dL (12.2-16.2); Mean Corpuscular Hemoglobin 31.4 pg (28.0-32.0); Mean Corpuscular Volume 93.3 fL (80.0-100.0)
[2025-09-28 07:13] LABS: Alanine Aminotransferase 32 U/L (7-40); Anion Gap 12 (5-15); BUN/Creatinine Ratio 33.1 (10.0-20.0); Glucose 94 mg/dL (74-106); Magnesium 1.8 mg/dL (1.6-2.6); Potassium 3.6 mmol/L (3.5-5.1); Sodium 144 mmol/L (136-145); Total Protein 5.8 g/dL (5.7-8.2)
[2025-09-28 07:31] LABS: Albumin 2.6 g/dL (3.2-4.8); Alkaline Phosphatase 130 U/L (46-116); Bilirubin, Total 0.3 mg/dL (0.2-1.0); Blood Urea Nitrogen 60 mg/dL (9-23); Calcium 7.9 mg/dL (8.7-10.4); Carbon Dioxide 19 mmol/L (20-31); Chloride 113 mmol/L (98-107)
[2025-09-28] MEDS: POTASSIUM PHOSPHATE 44 MEQ in D5W 5% 250 ML IV ONE (13:12)
[2025-09-28] MEDS: VANCOMYCIN 500mg/100mL 100 ML IV ONE (14:30)
--- NOTE | 2025-09-28 15:22 | DVHPN2 ---
Subjective The patient seen and examined. The patient complains of diarrhea. Reviewed: Care Plan, H&P, Labs, Medications, Previous Orders, Radiology Changes from previous H/P or p: No Changes Objective Vitals Vital Signs Date Time Temp Pulse Resp B/P (MAP) Pulse Ox O2 Delivery O2 Flow Rate FiO2 09/28/25 13:00 98.3 94 22 96/63 (74) 98 98.3 09/28/25 08:00 Room Air* 0 21 Intake/Output Intake and Output 09/28/25 07:00 Intake Total 2031 ml Output Total 850 ml Balance 1181 ml Intake Oral 1280 ml IV Total 751 ml Output Urine Total 850 ml # Bowel Movements 1 Medications Current Medications Medications Dose Ordered Sig/Merry Route Start Time Stop Time Status Last Admin Dose Admin Vancomycin HCl 0 ml @ 0 mls/hr PER PHARMACY IV 09/21/25 19:45 Ondansetron HCl 4 mg Q4HP PRN IV 09/21/25 19:45 Morphine Sulfate 2 mg Q30M PRN IV 09/21/25 19:45 UNV Micafungin Sodium 100 mg/Sodium Chloride 100 ml @ 100 mls/hr DAILY IV 09/23/25 10:00 09/28/25 10:34 100 MLS/HR Pantoprazole Sodium 40 mg BID IV 09/23/25 22:00 09/28/25 08:50 40 MG Morphine Sulfate 2 mg Q4HPRN PRN IV 09/25/25 11:45 Ceftriaxone Sodium/Dextrose 50 ml @ 50 mls/hr DAILY IV 09/26/25 10:00 09/28/25 08:50 50 MLS/HR Amino Acids 0 ml @ 0 mls/hr PER PHARMACY IV 09/26/25 11:00 Diagnostic Test (Pha) 1 strip Q6HR 09/27/25 12:00 09/28/25 12:00 1 STRIP Insulin Human Regular FOLLOW SLIDING SCALE Q6HR SC 09/27/25 12:00 Dextrose 50 ml UD IV 09/27/25 08:45 Fat Emulsion Intravenous 50 ml/ Potassium Acetate 40 meq/Potassium Phosphate 40 meq/ Calcium Gluconate 4.65 meq/ Magnesium Sulfate 12 meq/ Multivitamins 10 ml/Chromium/ Copper/Manganese/ Zinc 1 ml/Amino Acids/Dextrose/ Purified Water 1,153.0909 ml @ 48 mls/hr Q24H2M IV 09/27/25 22:00 09/28/25 21:59 09/27/25 22:45 48 MLS/HR Dextrose 1,000 ml @ 30 mls/hr Q24H IV 09/27/25 20:15 09/27/25 20:15 30 MLS/HR Fat Emulsion Intravenous 100 ml/Sodium Acetate 40 meq/Potassium Acetate 40 meq/ Potassium Phosphate 22 meq/ Calcium Gluconate 4.65 meq/ Magnesium Sulfate 14 meq/ Multivitamins 10 ml/Chromium/ Copper/Manganese/ Zinc 1 ml/Amino Acids/Dextrose/ Purified Water 1,469.5 ml @ 61 mls/hr Q24H6M IV 09/28/25 22:00 09/29/25 21:59 Laboratory Results Laboratory Tests 09/28/25 05:47 Chemistry Test 09/28/25 05:47 Albumin 2.6 g/dL (3.2-4.8) L Calcium Level 7.9 mg/dL (8.7-10.4) L Magnesium Level 1.8 mg/dL (1.6-2.6) Phosphorus Level 1.8 mg/dL (2.4-5.1) L Total Protein 5.8 g/dL (5.7-8.2) LFT Test 09/28/25 05:47 Alanine Aminotransferase (ALT) 32 U/L (7-40) Alkaline Phosphatase 130 U/L (46-116) H Aspartate Amino Transferase (AST) 123 U/L (13-40) H Total Bilirubin 0.3 mg/dL (0.2-1.0) Urinalysis Test 09/22/25 02:45 09/24/25 20:25 09/24/25 20:40 Urine Hyaline Casts Few /lpf (0 - 2) Urine Creatinine 34.98 mg/dL (30.0-125.0) Urine Sodium 17 mmol/L (40-220) L Urine Total Protein 27.1 mg/dL (1-14) H Urine Color Colorless (Yellow) Urine Clarity Turbid (Clear) H Urine pH 5.0 (5.0-9.0) Urine Specific [place] 1.008 (1.001-1.035) Urine Protein Negative (Negative) Urine Ketones Negative (Negative) Urine Blood 1+ /uL (Negative) H Urine Nitrite Negative (Negative) Urine Bilirubin Negative (Negative) Urine Urobilinogen Normal mg/dL (Negative) Urine Leukocyte Esterase 1+ /uL (Negative) Urine RBC 4 /hpf (0 - 4) Urine Microscopic WBC 6 /HPF (0-5) H Urine Squamous Epithelial Cells Few /hpf (<5) Urine Amorphous Crystals Few /hpf (None Seen) Urine Bacteria Mod /hpf (None Seen) H Urine Mucus Few (None Seen) Urine Glucose Normal mg/dL (Normal) Microbiology Microbiology Date/Time Source Procedure Growth Status 09/24/25 23:25 Blood Blood Culture - Preliminary NO GROWTH AFTER 72 HOURS OF INCUBATION. Resulted 09/24/25 20:40 Nose MRSA Screen - Final Complete 09/24/25 20:25 Urine - Yap Port Urine Culture - Final Complete 09/22/25 07:45 Stool Clostridium difficile Toxin Assay - Final Complete Assessment/Plan Assessment/Plan Neurology # metabolic/uremic encephalopathy likely due to sepsis and uremia, hypernatremia, improving Head CT Correct the underlying cause # mechanical fall Head CT Cardiology # shock, likely septic shock - off pressors # hypertension currently in shock, improving # NSTEMI type 2 likely due to shock/SWATI Monitor Infectious disease # sepsis with septic shock likely due to UTI/wound infection -wound culture, blood culture, urine culture IV antibiotics Switched to D5 half NS at 100 cc/hour # multiple wound infection ? Ecthyma gangrenosum # ulcerative wound infection on right lower abdominal quadrant -wound culture IV antibiotics IV micafungin Endocrine # diabetes mellitus type 2 Sliding scale insulin Nephrology # SWATI likely due to sepsis, unknown baseline function -nephrology on board : If no improvement in renal function in next 24 to 48 hours we will consider dialysis -Avod nephrotoxic drugs -monitor # anion gap metabolic acidosis with partial compensatory respiratory alkalosis Monitor ABG # hyperkalemia Corrected #hypokalemia -corrected with IV potassium -Monitor BMP # hypernatremia, Likely acute, improved -Switch to D5 half NS at 150 cc per # Probable right adrenal myelolipoma Seen on CT GI # GI bleed -FOBT positive GI on board Started on IV Protonix 40 mg b.i.d. # mild transaminitis likely due to shock will monitor Hematology oncology # thrombocytopenia likely due to sepsis Monitor # coagulopathy likely due to sepsis Monitor Urology # complicated UTI Urine Cultures and IV antibiotics Endocrine # Morbid Obesity -will marriage counselor minister on weight loss once more alert #Diarrhea, possible 2nd to antibiotic Imodium PRN #DVT prophylaxis -Lovenox currently on hold because of GI bleed SCDs Lines Right IJ CVC placed on 09/21/2025 Yap's catheter placed on 09/21/2025 Drips Norepinephrine D5 half NS Nutrition Started on TPN diet by GI Passed swallow evaluation We will start pureed diet Patient has had improvement in kidney function, improvement in the alertness and cognitive function, wound culture growing Proteus pansensitive. Patient is more alert today Off pressors since last night We will transfer to telemetry Swallow evaluation done, patient started on pureed diet Code status, discussed with family for greater than 21 minutes, full code Critical care time excluding procedures greater than 61 minutes Plan discussed with: Patient Date of Service: Sep 28, 2025 Billing Provider: PANCHITO PALOMO MD Common Visit Codes: [id number] INP/OBS CARE(HIGH) PANCHITO PALOMO MD Sep 28, 2025 15:22
--- NOTE | 2025-09-28 17:07 | DVHPN2 ---
Progress Note Date Seen: Sep 27, 2025 Medical Necessity Reason Pt with a Central, PICC or Fol: Yes The following are medically ne: Yap Catheter Subjective Patient reports: No new complaints Review of Systems: Deferred Objective vital signs Vital Sign Date Time Temp Pulse Resp B/P (MAP) Pulse Ox O2 Delivery O2 Flow Rate FiO2 09/28/25 16:52 97.4 91 22 129/84 (99) 97 97.4 09/28/25 08:00 Room Air* 0 21 Total Intake and Output 09/27/25 09/27/25 09/28/25 15:00 23:00 07:00 Intake Total 710 ml 41 ml 1280 ml Output Total 850 ml Balance 710 ml 41 ml 430 ml medications Current Medications Medications Dose Ordered Sig/Merry Route Start Time Stop Time Status Last Admin Dose Admin Vancomycin HCl 0 ml @ 0 mls/hr PER PHARMACY IV 09/21/25 19:45 Ondansetron HCl 4 mg Q4HP PRN IV 09/21/25 19:45 Morphine Sulfate 2 mg Q30M PRN IV 09/21/25 19:45 UNV Micafungin Sodium 100 mg/Sodium Chloride 100 ml @ 100 mls/hr DAILY IV 09/23/25 10:00 09/28/25 10:34 100 MLS/HR Pantoprazole Sodium 40 mg BID IV 09/23/25 22:00 09/28/25 08:50 40 MG Morphine Sulfate 2 mg Q4HPRN PRN IV 09/25/25 11:45 Ceftriaxone Sodium/Dextrose 50 ml @ 50 mls/hr DAILY IV 09/26/25 10:00 09/28/25 08:50 50 MLS/HR Amino Acids 0 ml @ 0 mls/hr PER PHARMACY IV 09/26/25 11:00 Diagnostic Test (Pha) 1 strip Q6HR 09/27/25 12:00 09/28/25 12:00 1 STRIP Insulin Human Regular FOLLOW SLIDING SCALE Q6HR SC 09/27/25 12:00 Dextrose 50 ml UD IV 09/27/25 08:45 Fat Emulsion Intravenous 50 ml/ Potassium Acetate 40 meq/Potassium Phosphate 40 meq/ Calcium Gluconate 4.65 meq/ Magnesium Sulfate 12 meq/ Multivitamins 10 ml/Chromium/ Copper/Manganese/ Zinc 1 ml/Amino Acids/Dextrose/ Purified Water 1,153.0909 ml @ 48 mls/hr Q24H2M IV 09/27/25 22:00 09/28/25 21:59 09/27/25 22:45 48 MLS/HR Dextrose 1,000 ml @ 30 mls/hr Q24H IV 09/27/25 20:15 09/27/25 20:15 30 MLS/HR Fat Emulsion Intravenous 100 ml/Sodium Acetate 40 meq/Potassium Acetate 40 meq/ Potassium Phosphate 22 meq/ Calcium Gluconate 4.65 meq/ Magnesium Sulfate 14 meq/ Multivitamins 10 ml/Chromium/ Copper/Manganese/ Zinc 1 ml/Amino Acids/Dextrose/ Purified Water 1,469.5 ml @ 61 mls/hr Q24H6M IV 09/28/25 22:00 09/29/25 21:59 laboratory and microbiology Laboratory Tests 09/28/25 05:47 Test 09/28/25 05:47 Range/Units Serum Glucose 94 74-106 mg/dL Microbiology Date/Time Source Procedure Growth Status 09/24/25 23:25 Blood Blood Culture - Preliminary NO GROWTH AFTER 72 HOURS OF INCUBATION. Resulted 09/24/25 20:40 Nose MRSA Screen - Final Complete 09/24/25 20:25 Urine - Yap Port Urine Culture - Final Complete 09/22/25 07:45 Stool Clostridium difficile Toxin Assay - Final Complete Problem List/Assessment/Plan Problem List/Assessment/Plan SWATI, in the setting of septic shock/VMN Dehydration/Hypernatremia Septic shock, possibly due to infected wounds Metabolic/uremia encephalopathy, due to above Obesity Diabetes Non ST-elevation [place] GI bleeding Lactic acidosis Plan/Recommendations: d5w iv improving Na and renal function Plan discussed with: Patient Dietary Evaluation Review Comments: Nutrition Recommendation: 1) Advance diet as medically feasible 2) Clem 1 pk daily, nephro-dale 1 tab daily 3) Ensure clear 240ml TID 4) Monitor PO intake, lab values, weight trend, and I/O Expected Outcomes/Goals: Wound to improve GI symptoms to improve Intake to meet >75% estimated needs Lab values to improve FU 2-3 days RENETTA GAY MD Sep 28, 2025 17:07
[2025-09-28] MEDS: TPN PER PHARMACY IV NR (22:02)
[2025-09-29] VITALS (8 sets, daily range): BP systolic 111–147; BP diastolic 63–88; PULSE 76–92; RESP 16–20; TEMP 97.7–98.5; O2SAT 93–99
[2025-09-29 07:22] LABS: Hemoglobin 10.9 g/dL (12.2-16.2)
[2025-09-29 07:25] LABS: Hematocrit 33.7 % (36.0-46.0); Mean Corpuscular Hemoglobin 30.9 pg (28.0-32.0); Mean Corpuscular Volume 95.9 fL (80.0-100.0); Nucleated Red Blood Cells % 0.3 %
[2025-09-29 07:37] LABS: Alanine Aminotransferase 39 U/L (7-40); Anion Gap 11 (5-15); BUN/Creatinine Ratio 47.0 (10.0-20.0); Bilirubin, Total 0.3 mg/dL (0.2-1.0); Carbon Dioxide 20 mmol/L (20-31); Glucose 92 mg/dL (74-106); Magnesium 1.7 mg/dL (1.6-2.6); Potassium 3.9 mmol/L (3.5-5.1); Sodium 141 mmol/L (136-145); Total Protein 5.8 g/dL (5.7-8.2)
[2025-09-29 07:45] LABS: Albumin 2.6 g/dL (3.2-4.8); Alkaline Phosphatase 121 U/L (46-116); Blood Urea Nitrogen 62 mg/dL (9-23); Calcium 8.4 mg/dL (8.7-10.4); Chloride 110 mmol/L (98-107)
[2025-09-29] MEDS: POTASSIUM PHOSPHATE 26.4 MEQ in SODIUM CHL 0.9% 100 ML IV ONE (11:59)
--- NOTE | 2025-09-29 14:26 | DVHPN2 ---
Progress Note - Dictate Date Seen: Sep 29, 2025 Medical Necessity Reason Pt with a Central, PICC or Fol: Yes The following are medically ne: Yap Catheter Subjective Patient was seen at bedside She is downgraded to the floor Patient is tolerating diet There is no GI bleeding No nausea vomiting H&H is stable and stool for occult blood was positive Troponins were elevated patient had non-STEMI vital signs Vital Sign Date Time Temp Pulse Resp B/P (MAP) Pulse Ox O2 Delivery O2 Flow Rate FiO2 09/29/25 13:00 97.9 85 18 113/63 (80) 93 97.9 09/29/25 08:00 Room Air* 0 21 Total Intake and Output 09/28/25 09/28/25 09/29/25 15:00 23:00 07:00 Intake Total 2394 ml Output Total 2200 ml Balance 194 ml medications Current Medications Medications Dose Ordered Sig/Merry Route Start Time Stop Time Status Last Admin Dose Admin Vancomycin HCl 0 ml @ 0 mls/hr PER PHARMACY IV 09/21/25 19:45 Ondansetron HCl 4 mg Q4HP PRN IV 09/21/25 19:45 Morphine Sulfate 2 mg Q30M PRN IV 09/21/25 19:45 UNV Micafungin Sodium 100 mg/Sodium Chloride 100 ml @ 100 mls/hr DAILY IV 09/23/25 10:00 09/29/25 10:30 100 MLS/HR Pantoprazole Sodium 40 mg BID IV 09/23/25 22:00 09/29/25 08:50 40 MG Morphine Sulfate 2 mg Q4HPRN PRN IV 09/25/25 11:45 Ceftriaxone Sodium/Dextrose 50 ml @ 50 mls/hr DAILY IV 09/26/25 10:00 09/29/25 08:50 50 MLS/HR Amino Acids 0 ml @ 0 mls/hr PER PHARMACY IV 09/26/25 11:00 Diagnostic Test (Pha) 1 strip Q6HR 09/27/25 12:00 09/29/25 11:37 1 STRIP Insulin Human Regular FOLLOW SLIDING SCALE Q6HR SC 09/27/25 12:00 Dextrose 50 ml UD IV 09/27/25 08:45 Dextrose 1,000 ml @ 30 mls/hr Q24H IV 09/27/25 20:15 09/27/25 20:15 30 MLS/HR Fat Emulsion Intravenous 100 ml/Sodium Acetate 40 meq/Potassium Acetate 40 meq/ Potassium Phosphate 22 meq/ Calcium Gluconate 4.65 meq/ Magnesium Sulfate 14 meq/ Multivitamins 10 ml/Chromium/ Copper/Manganese/ Zinc 1 ml/Amino Acids/Dextrose/ Purified Water 1,469.5 ml @ 61 mls/hr Q24H6M IV 09/28/25 22:00 09/29/25 21:59 09/28/25 22:02 61 MLS/HR Loperamide HCl 2 mg PRN PRN PO 09/28/25 22:30 Fat Emulsion Intravenous 100 ml/Sodium Acetate 40 meq/Potassium Acetate 50 meq/ Potassium Phosphate 33 meq/ Calcium Gluconate 4.65 meq/ Magnesium Sulfate 16 meq/ Multivitamins 10 ml/Chromium/ Copper/Manganese/ Zinc 1 ml/Amino Acids/Dextrose/ Purified Water 1,577.5 ml @ 66 mls/hr [id number] IV 09/29/25 22:00 09/30/25 21:59 objective Gen - no pallor, no scleral icterus Skin - Patients skin is warm and dry. HEENT - normocephalic, atraumatic, dry mucous membranes. Neck - supple, no lymphadenopathy Pulmonary - B/L decreased breath sounds cardiovascular - regular S1,S2 heard GI - soft abdomen with tenderness to palpation in the lower quadrants with a visible wounds in the lower abdominal quadrant. Bowel sounds normoactive. Neurological - Patient is alert and oriented x2, following commands laboratory and microbiology Laboratory Tests 09/29/25 05:29 Test 09/29/25 05:29 Range/Units Serum Glucose 92 74-106 mg/dL Problems(with codes): (1) Heme positive stool (2) Anemia Prognosis PLAN The patient appears to be hemodynamically stable no nausea vomiting no active GI bleeding She is tolerating diet Patient states she is also due for elective colonoscopy We will maintain her on Protonix 40 mg p.o. daily She was advised to follow up in my office in 4-6 weeks to discuss outpatient elective induction once cleared by Cardiology Dietary Evaluation Review Comments: Nutrition Recommendation: 1) Advance diet as medically feasible 2) Clem 1 pk daily, nephro-dale 1 tab daily 3) Ensure clear 240ml TID 4) Monitor PO intake, lab values, weight trend, and I/O Expected Outcomes/Goals: Wound to improve GI symptoms to improve Intake to meet >75% estimated needs Lab values to improve FU 2-3 days Plan discussed with: Patient CHRIS DE SOUZA MD Sep 29, 2025 14:26
--- NOTE | 2025-09-29 16:04 | DVHPN2 ---
Progress Note Date Seen: Sep 29, 2025 Medical Necessity Reason Pt with a Central, PICC or Fol: Yes The following are medically ne: Yap Catheter Subjective Changes from previous H/P or p: No Changes Objective vital signs Vital Sign Date Time Temp Pulse Resp B/P (MAP) Pulse Ox O2 Delivery O2 Flow Rate FiO2 09/29/25 13:00 97.9 85 18 113/63 (80) 93 97.9 09/29/25 08:00 Room Air* 0 21 Total Intake and Output 09/28/25 09/28/25 09/29/25 15:00 23:00 07:00 Intake Total 2394 ml Output Total 2200 ml Balance 194 ml medications Current Medications Medications Dose Ordered Sig/Merry Route Start Time Stop Time Status Last Admin Dose Admin Vancomycin HCl 0 ml @ 0 mls/hr PER PHARMACY IV 09/21/25 19:45 Ondansetron HCl 4 mg Q4HP PRN IV 09/21/25 19:45 Morphine Sulfate 2 mg Q30M PRN IV 09/21/25 19:45 UNV Micafungin Sodium 100 mg/Sodium Chloride 100 ml @ 100 mls/hr DAILY IV 09/23/25 10:00 09/29/25 10:30 100 MLS/HR Pantoprazole Sodium 40 mg BID IV 09/23/25 22:00 09/29/25 08:50 40 MG Morphine Sulfate 2 mg Q4HPRN PRN IV 09/25/25 11:45 Ceftriaxone Sodium/Dextrose 50 ml @ 50 mls/hr DAILY IV 09/26/25 10:00 09/29/25 08:50 50 MLS/HR Amino Acids 0 ml @ 0 mls/hr PER PHARMACY IV 09/26/25 11:00 Diagnostic Test (Pha) 1 strip Q6HR 09/27/25 12:00 09/29/25 11:37 1 STRIP Insulin Human Regular FOLLOW SLIDING SCALE Q6HR SC 09/27/25 12:00 Dextrose 50 ml UD IV 09/27/25 08:45 Dextrose 1,000 ml @ 30 mls/hr Q24H IV 09/27/25 20:15 09/27/25 20:15 30 MLS/HR Fat Emulsion Intravenous 100 ml/Sodium Acetate 40 meq/Potassium Acetate 40 meq/ Potassium Phosphate 22 meq/ Calcium Gluconate 4.65 meq/ Magnesium Sulfate 14 meq/ Multivitamins 10 ml/Chromium/ Copper/Manganese/ Zinc 1 ml/Amino Acids/Dextrose/ Purified Water 1,469.5 ml @ 61 mls/hr Q24H6M IV 09/28/25 22:00 09/29/25 21:59 09/28/25 22:02 61 MLS/HR Loperamide HCl 2 mg PRN PRN PO 09/28/25 22:30 Fat Emulsion Intravenous 100 ml/Sodium Acetate 40 meq/Potassium Acetate 50 meq/ Potassium Phosphate 33 meq/ Calcium Gluconate 4.65 meq/ Magnesium Sulfate 16 meq/ Multivitamins 10 ml/Chromium/ Copper/Manganese/ Zinc 1 ml/Amino Acids/Dextrose/ Purified Water 1,577.5 ml @ 66 mls/hr [id number] IV 09/29/25 22:00 09/30/25 21:59 Examination: GENERAL:Abnormal, LUNGS:Abnormal, ABDOMEN:Abnormal laboratory and microbiology Laboratory Tests 09/29/25 05:29 Test 09/29/25 05:29 Range/Units Serum Glucose 92 74-106 mg/dL Microbiology Date/Time Source Procedure Growth Status 09/24/25 23:25 Blood Blood Culture - Preliminary NO GROWTH AFTER 72 HOURS OF INCUBATION. Resulted 09/24/25 20:40 Nose MRSA Screen - Final Complete 09/24/25 20:25 Urine - Yap Port Urine Culture - Final Complete 09/22/25 07:45 Stool Clostridium difficile Toxin Assay - Final Complete Problem List/Assessment/Plan Problem List/Assessment/Plan SWATI, in the setting of septic shock/VMN Dehydration/Hypernatremia Septic shock, possibly due to infected wounds Metabolic/uremia encephalopathy, due to above Obesity Diabetes Non ST-elevation [place] GI bleeding Lactic acidosis SWATI resolved hyponatremia imprved w/ hypotonic fluids dc d5 tomorrow Plan discussed with: Patient Dietary Evaluation Review Comments: Nutrition Recommendation: 1) Advance diet as medically feasible 2) Clem 1 pk daily, nephro-dale 1 tab daily 3) Ensure clear 240ml TID 4) Monitor PO intake, lab values, weight trend, and I/O Expected Outcomes/Goals: Wound to improve GI symptoms to improve Intake to meet >75% estimated needs Lab values to improve FU 2-3 days PENELOPE FOWLER MD Sep 29, 2025 16:04
--- NOTE | 2025-09-29 17:15 | DVH ---
MRI BRAIN WITHOUT CONTRAST History: rule out stroke Comparison: CT HEAD WITHOUT CONTRAST on DOS: 09/23/25 Technique: Multi-sequence, multiplanar magnetic resonance images of the brain are reviewed. Findings: No acute hemorrhage or infarct is seen. Few T2/FLAIR hyperintense foci in the periventricular and subcortical white matter, suggestive of chronic microvascular disease. The ventricles and sulci are normal in size and configuration for the patient's age. There is no evidence of mass or mass effect. There are no abnormal extra-axial fluid collections. The major intracranial blood vessels retain normal flow voids consistent with their patency. Trace mucosal thickening of the paranasal sinuses. Right mastoid air cell effusion. IMPRESSION: No acute infarct.
[2025-09-29] MEDS ORDERED: VANCOMYCIN 750mg/100mL IV ONE (18:00)
--- NOTE | 2025-09-29 19:18 | DVHPNRES ---
Progress Note Date Seen: Sep 29, 2025 Resident Creating Document: MARVEL TOBAR RESIDENT Medical Necessity Reason Pt with a Central, PICC or Fol: Yes The following are medically ne: Yap Catheter Subjective Review of Systems Patient seen and examined bedside Patient is alert and oriented Swallow evaluation done, patient started on pureed diet Complaining of mild chest discomfort Objective vital signs Vital Sign Date Time Temp Pulse Resp B/P (MAP) Pulse Ox O2 Delivery O2 Flow Rate FiO2 09/29/25 17:00 98.3 87 18 130/80 (97) 95 98.3 09/29/25 08:00 Room Air* 0 21 Total Intake and Output 09/28/25 09/28/25 09/29/25 15:00 23:00 07:00 Intake Total 2394 ml Output Total 2200 ml Balance 194 ml medications Current Medications Medications Dose Ordered Sig/Merry Route Start Time Stop Time Status Last Admin Dose Admin Ondansetron HCl 4 mg Q4HP PRN IV 09/21/25 19:45 Morphine Sulfate 2 mg Q30M PRN IV 09/21/25 19:45 UNV Micafungin Sodium 100 mg/Sodium Chloride 100 ml @ 100 mls/hr DAILY IV 09/23/25 10:00 09/29/25 10:30 100 MLS/HR Pantoprazole Sodium 40 mg BID IV 09/23/25 22:00 09/29/25 08:50 40 MG Morphine Sulfate 2 mg Q4HPRN PRN IV 09/25/25 11:45 Ceftriaxone Sodium/Dextrose 50 ml @ 50 mls/hr DAILY IV 09/26/25 10:00 09/29/25 08:50 50 MLS/HR Diagnostic Test (Pha) 1 strip Q6HR 09/27/25 12:00 09/29/25 18:00 1 STRIP Insulin Human Regular FOLLOW SLIDING SCALE Q6HR SC 09/27/25 12:00 Dextrose 50 ml UD IV 09/27/25 08:45 Loperamide HCl 2 mg PRN PRN PO 09/28/25 22:30 Examination Examination General Appearance: Alert, Oriented X3, Cooperative, No acute distress HEENT: EOMI Respiratory: Clear to auscultation, Normal air movement Cardiovascular: Regular rate, Normal S1, Normal S2 Abdominal: Normal bowel sounds, multiple striae/present on the abdomen, 2 cm deep ulcerative wound present on the right lower quadrant, sacral ulcer stage II present on admission, multiple purple color macular rash present on lower extremity and arm Extremities: No cyanosis, No edema, Normal pulses, No tenderness/swelling Skin: No rashes, No breakdown Neuro: Alert and oriented laboratory and microbiology Laboratory Tests 09/29/25 05:29 Test 09/29/25 05:29 Range/Units Serum Glucose 92 74-106 mg/dL Microbiology Date/Time Source Procedure Growth Status 09/24/25 23:25 Blood Blood Culture - Preliminary NO GROWTH AFTER 72 HOURS OF INCUBATION. Resulted 09/24/25 20:40 Nose MRSA Screen - Final Complete 09/24/25 20:25 Urine - Yap Port Urine Culture - Final Complete 09/22/25 07:45 Stool Clostridium difficile Toxin Assay - Final Complete Problem List/Assessment/Plan Problem List/Assessment/Plan Neurology # metabolic/uremic encephalopathy likely due to sepsis and uremia, hypernatremia, -improved Head CT: No acute pathology # mechanical fall Head CT: No acute intracranial abnormality. Cardiology # shock, likely septic shock - off pressors # hypertension currently in shock, improving # NSTEMI type 2 likely due to shock/SWATI Monitor Infectious disease # sepsis with septic shock likely due to UTI/wound infection -wound culture: Proteus mirabilis blood culture, : Repeat blood culture no growth urine culture : No growth - IV antibiotics # multiple wound infection # ulcerative wound infection on right lower abdominal quadrant -wound culture: Proteus mirabilis - IV antibiotics - IV micafungin Endocrine # diabetes mellitus type 2 Sliding scale insulin Nephrology # SWATI likely due to sepsis, unknown baseline function -nephrology on board : If no improvement in renal function in next 24 to 48 hours we will consider dialysis -Avoid nephrotoxic drugs -monitor # hyperkalemia Corrected #hypokalemia -corrected with IV potassium -Monitor BMP # hypernatremia, Likely acute, improved -Switch to D5 half NS at 150 cc per # Probable right adrenal myelolipoma Seen on CT GI # GI bleed -FOBT positive GI on board Started on IV Protonix 40 mg b.i.d. 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 Correa Plan discussed with: Patient My Orders My Orders Orders - MARVEL TOBAR Procedure Category Date Status Time Complete Blood Count LAB 09/30/25 Verified 04:00 Dietary Evaluation Review Comments: Nutrition Recommendation: 1) Advance diet as medically feasible 2) Clem 1 pk daily, nephro-dale 1 tab daily 3) Ensure clear 240ml TID 4) Monitor PO intake, lab values, weight trend, and I/O Expected Outcomes/Goals: Wound to improve GI symptoms to improve Intake to meet >75% estimated needs Lab values to improve FU 2-3 days Date of Service: Sep 29, 2025 Billing Provider: BEATRIZ CORREA MD Common Visit Codes: [id number] INP/OBS CARE(HIGH) Secondary Visit Codes: [id number] CARE PLAN 30 MINUTES MARVEL TOBAR Sep 29, 2025 19:18 BEATRIZ CORREA MD Sep 30, 2025 15:16
[2025-09-30] VITALS (8 sets, daily range): BP systolic 95–122; BP diastolic 57–74; PULSE 77–89; RESP 16–18; TEMP 97.4–98.5; O2SAT 94–99
[2025-09-30 06:11] LABS: Nucleated Red Blood Cells % 0.2 %
[2025-09-30 06:15] LABS: Hematocrit 30.0 % (36.0-46.0); Hemoglobin 10.1 g/dL (12.2-16.2); Mean Corpuscular Hemoglobin 31.3 pg (28.0-32.0); Mean Corpuscular Volume 92.6 fL (80.0-100.0)
[2025-09-30 06:29] LABS: Alanine Aminotransferase 40 U/L (7-40); Anion Gap 10 (5-15); BUN/Creatinine Ratio 53.6 (10.0-20.0); Bilirubin, Total 0.3 mg/dL (0.2-1.0); Carbon Dioxide 22 mmol/L (20-31); Potassium 4.3 mmol/L (3.5-5.1); Sodium 140 mmol/L (136-145)
[2025-09-30 06:30] LABS: Albumin 2.3 g/dL (3.2-4.8); Alkaline Phosphatase 119 U/L (46-116); Blood Urea Nitrogen 60 mg/dL (9-23); Calcium 8.0 mg/dL (8.7-10.4); Chloride 108 mmol/L (98-107); Glucose 69 mg/dL (74-106); Magnesium 1.4 mg/dL (1.6-2.6); Total Protein 5.2 g/dL (5.7-8.2)
--- NOTE | 2025-09-30 11:22 | DVHPN2 ---
Progress Note Date Seen: Sep 30, 2025 Medical Necessity Reason Pt with a Central, PICC or Fol: Yes The following are medically ne: Yap Catheter Objective vital signs Vital Sign Date Time Temp Pulse Resp B/P (MAP) Pulse Ox O2 Delivery O2 Flow Rate FiO2 09/30/25 08:45 98.2 83 16 108/57 (74) 96 98.2 09/29/25 20:00 Room Air* 0 21 Total Intake and Output 09/29/25 09/29/25 09/30/25 15:00 23:00 07:00 Intake Total 1209 ml 760 ml 700 ml Output Total 300 ml 901 ml Balance 1209 ml 460 ml -201 ml medications Current Medications Medications Dose Ordered Sig/Merry Route Start Time Stop Time Status Last Admin Dose Admin Ondansetron HCl 4 mg Q4HP PRN IV 09/21/25 19:45 Morphine Sulfate 2 mg Q30M PRN IV 09/21/25 19:45 UNV Micafungin Sodium 100 mg/Sodium Chloride 100 ml @ 100 mls/hr DAILY IV 09/23/25 10:00 09/30/25 10:31 100 MLS/HR Pantoprazole Sodium 40 mg BID IV 09/23/25 22:00 09/30/25 10:27 40 MG Morphine Sulfate 2 mg Q4HPRN PRN IV 09/25/25 11:45 Ceftriaxone Sodium/Dextrose 50 ml @ 50 mls/hr DAILY IV 09/26/25 10:00 09/30/25 10:00 50 MLS/HR Diagnostic Test (Pha) 1 strip Q6HR 09/27/25 12:00 09/30/25 06:00 1 STRIP Insulin Human Regular FOLLOW SLIDING SCALE Q6HR SC 09/27/25 12:00 Dextrose 50 ml UD IV 09/27/25 08:45 Loperamide HCl 2 mg PRN PRN PO 09/28/25 22:30 laboratory and microbiology Laboratory Tests 09/30/25 05:25 Test 09/30/25 05:25 Range/Units Serum Glucose 69 L 74-106 mg/dL Microbiology Date/Time Source Procedure Growth Status 09/24/25 23:25 Blood Blood Culture - Final NO GROWTH AFTER 5 DAYS OF INCUBATION. Complete 09/24/25 20:40 Nose MRSA Screen - Final Complete 09/24/25 20:25 Urine - Yap Port Urine Culture - Final Complete 09/22/25 07:45 Stool Clostridium difficile Toxin Assay - Final Complete Problem List/Assessment/Plan Problem List/Assessment/Plan SWATI, in the setting of septic shock/VMN Dehydration/Hypernatremia Septic shock, possibly due to infected wounds Metabolic/uremia encephalopathy, due to above Obesity Diabetes Non ST-elevation [place] GI bleeding Lactic acidosis SWATI resolved hyponatremia resolved hypotonic now off po and free water as tolerated Will sign off Plan discussed with: Patient Dietary Evaluation Review Comments: Nutrition Recommendation: 1) Advance diet as medically feasible 2) Clem 1 pk daily, nephro-dale 1 tab daily 3) Ensure clear 240ml TID 4) Monitor PO intake, lab values, weight trend, and I/O Expected Outcomes/Goals: Wound to improve GI symptoms to improve Intake to meet >75% estimated needs Lab values to improve FU 2-3 days PENELOPE FOWLER MD Sep 30, 2025 11:22
--- NOTE | 2025-09-30 15:47 | DVHPN2 ---
Progress Note - Dictate Date Seen: Sep 30, 2025 Medical Necessity Reason Pt with a Central, PICC or Fol: Yes The following are medically ne: Yap Catheter Subjective No new complaints Patient is tolerating a soft mechanical diet She had a large loose bowel movement no bleeding documented No nausea vomiting or active upper GI bleeding ; No nausea vomiting H&H is stable 10.1 and stool for occult blood was positive Troponins were elevated patient had non-STEMI vital signs Vital Sign Date Time Temp Pulse Resp B/P (MAP) Pulse Ox O2 Delivery O2 Flow Rate FiO2 09/30/25 13:00 98.2 77 18 97/68 (78) 94 98.2 09/29/25 20:00 Room Air* 0 21 Total Intake and Output 09/29/25 09/29/25 09/30/25 15:00 23:00 07:00 Intake Total 1209 ml 760 ml 700 ml Output Total 300 ml 901 ml Balance 1209 ml 460 ml -201 ml medications Current Medications Medications Dose Ordered Sig/Merry Route Start Time Stop Time Status Last Admin Dose Admin Ondansetron HCl 4 mg Q4HP PRN IV 09/21/25 19:45 Morphine Sulfate 2 mg Q30M PRN IV 09/21/25 19:45 UNV Micafungin Sodium 100 mg/Sodium Chloride 100 ml @ 100 mls/hr DAILY IV 09/23/25 10:00 09/30/25 10:31 100 MLS/HR Morphine Sulfate 2 mg Q4HPRN PRN IV 09/25/25 11:45 Ceftriaxone Sodium/Dextrose 50 ml @ 50 mls/hr DAILY IV 09/26/25 10:00 09/30/25 10:00 50 MLS/HR Loperamide HCl 2 mg PRN PRN PO 09/28/25 22:30 Pantoprazole Sodium 40 mg BID@0600,1700 PO 09/30/25 17:00 UNV objective Gen - no pallor, no scleral icterus Skin - Patients skin is warm and dry. HEENT - normocephalic, atraumatic, dry mucous membranes. Neck - supple, no lymphadenopathy Pulmonary - B/L decreased breath sounds cardiovascular - regular S1,S2 heard GI - soft abdomen with tenderness to palpation in the lower quadrants with a visible wounds in the lower abdominal quadrant. Bowel sounds normoactive. Neurological - Patient is alert and oriented x2, following commands laboratory and microbiology Laboratory Tests 09/30/25 05:25 Test 09/30/25 05:25 Range/Units Serum Glucose 69 L 74-106 mg/dL Problems(with codes): (1) Heme positive stool (2) Anemia (3) Altered level of consciousness (4) Sepsis Prognosis PLAN The patient appears to be hemodynamically stable no nausea vomiting no active GI bleeding She is tolerating diet We will maintain her on Protonix 40 mg p.o. daily She was advised to follow up in my office in 4-6 weeks to discuss outpatient elective panendoscopy once cleared by Cardiology Dietary Evaluation Review Comments: Nutrition Recommendation: 1) Advance diet as medically feasible 2) Clem 1 pk daily, nephro-dale 1 tab daily 3) Ensure clear 240ml TID 4) Monitor PO intake, lab values, weight trend, and I/O Expected Outcomes/Goals: Wound to improve GI symptoms to improve Intake to meet >75% estimated needs Lab values to improve FU 2-3 days Plan discussed with: Patient CHRIS DE SOUZA MD Sep 30, 2025 15:47
--- NOTE | 2025-09-30 17:01 | DVHPNRES ---
Progress Note Date Seen: Sep 30, 2025 Resident Creating Document: MARVEL TOBAR RESIDENT Medical Necessity Reason Pt with a Central, PICC or Fol: Yes The following are medically ne: Yap Catheter Subjective Review of Systems Patient seen and examined bedside Patient is alert and oriented Swallow evaluation done, patient started on pureed diet Complaining of mild chest discomfort Objective vital signs Vital Sign Date Time Temp Pulse Resp B/P (MAP) Pulse Ox O2 Delivery O2 Flow Rate FiO2 09/30/25 17:00 97.4 89 18 95/66 (76) 99 97.4 09/30/25 08:00 Room Air* 0 21 Total Intake and Output 09/29/25 09/29/25 09/30/25 15:00 23:00 07:00 Intake Total 1209 ml 760 ml 700 ml Output Total 300 ml 901 ml Balance 1209 ml 460 ml -201 ml medications Current Medications Medications Dose Ordered Sig/Merry Route Start Time Stop Time Status Last Admin Dose Admin Ondansetron HCl 4 mg Q4HP PRN IV 09/21/25 19:45 Morphine Sulfate 2 mg Q30M PRN IV 09/21/25 19:45 UNV Micafungin Sodium 100 mg/Sodium Chloride 100 ml @ 100 mls/hr DAILY IV 09/23/25 10:00 09/30/25 10:31 100 MLS/HR Morphine Sulfate 2 mg Q4HPRN PRN IV 09/25/25 11:45 Ceftriaxone Sodium/Dextrose 50 ml @ 50 mls/hr DAILY IV 09/26/25 10:00 09/30/25 10:00 50 MLS/HR Loperamide HCl 2 mg PRN PRN PO 09/28/25 22:30 Pantoprazole Sodium 40 mg BID@0600,1700 PO 09/30/25 17:00 Examination General Appearance: Alert, Oriented X3, Cooperative, No acute distress HEENT: EOMI Respiratory: Clear to auscultation, Normal air movement Cardiovascular: Regular rate, Normal S1, Normal S2 Abdominal: Normal bowel sounds, multiple striae/present on the abdomen, 2 cm deep ulcerative wound present on the right lower quadrant, sacral ulcer stage II present on admission, multiple purple color macular rash present on lower extremity and arm Extremities: No cyanosis, No edema, Normal pulses, No tenderness/swelling Skin: No rashes, No breakdown Neuro: Alert and oriented laboratory and microbiology Laboratory Tests 09/30/25 05:25 Test 09/30/25 05:25 Range/Units Serum Glucose 69 L 74-106 mg/dL Microbiology Date/Time Source Procedure Growth Status 09/24/25 23:25 Blood Blood Culture - Final NO GROWTH AFTER 5 DAYS OF INCUBATION. Complete 09/24/25 20:40 Nose MRSA Screen - Final Complete 09/24/25 20:25 Urine - Yap Port Urine Culture - Final Complete 09/22/25 07:45 Stool Clostridium difficile Toxin Assay - Final Complete Problem List/Assessment/Plan Problem List/Assessment/Plan Neurology # metabolic/uremic encephalopathy likely due to sepsis and uremia, hypernatremia, -improved Head CT: No acute pathology # mechanical fall Head CT: No acute intracranial abnormality. Cardiology # shock, likely septic shock - off pressors # hypertension currently in shock, improving # NSTEMI type 2 likely due to shock/SWATI Monitor Infectious disease # sepsis with septic shock likely due to UTI/wound infection -wound culture: Proteus mirabilis blood culture, : Repeat blood culture no growth urine culture : No growth - IV antibiotics # multiple wound infection # ulcerative wound infection on right lower abdominal quadrant -wound culture: Proteus mirabilis - IV antibiotics - IV micafungin Endocrine # diabetes mellitus type 2 Sliding scale insulin Nephrology # SWATI likely due to sepsis, unknown baseline function -nephrology on board : If no improvement in renal function in next 24 to 48 hours we will consider dialysis -Avoid nephrotoxic drugs -monitor # hyperkalemia Corrected #hypokalemia -corrected with IV potassium -Monitor BMP # hypernatremia, Likely acute, improved -Switch to D5 half NS at 150 cc per # Probable right adrenal myelolipoma Seen on CT GI # GI bleed -FOBT positive GI on board Started on IV Protonix 40 mg b.i.d. # mild transaminitis likely due to shock will monitor Hematology oncology # thrombocytopenia likely due to sepsis Monitor # coagulopathy likely due to sepsis Monitor Urology # complicated UTI Urine Cultures and IV antibiotics Endocrine # Morbid Obesity -will counseling program leader on weight loss once more alert #DVT prophylaxis -Lovenox currently on hold because of GI bleed SCDs Lines - insert midline - D/C the central line Yap's catheter placed on 09/21/2025 Plan to discharge patient to SNF for physical therapy, social service consulted Goal of care discussed with patient for 27 minutes: Full code Plan discussed with Dr. Correa Plan discussed with: Patient My Orders My Orders Orders - MARVEL TOBAR Procedure Category Date Status Time Pt Request For Service PT 09/30/25 Logged 09:33 Dietary Evaluation Review Comments: Nutrition Recommendation: 1) Advance diet as medically feasible 2) Clem 1 pk daily, nephro-dale 1 tab daily 3) Ensure clear 240ml TID 4) Monitor PO intake, lab values, weight trend, and I/O Expected Outcomes/Goals: Wound to improve GI symptoms to improve Intake to meet >75% estimated needs Lab values to improve FU 2-3 days Date of Service: Sep 30, 2025 Billing Provider: BEATRIZ CORREA MD Common Visit Codes: [id number] INP/OBS CARE(HIGH) MARVEL TOBAR Sep 30, 2025 17:01 BEATRIZ CORREA MD Oct 01, 2025 15:09
[2025-09-30] MEDS: MAGNESIUM SULFATE 1GM/100ML 100 ML IV ONE (19:16)
[2025-09-30] MEDS: PANTOPRAZOLE 40 MG TAB PO SCH (19:17)
[2025-10-01] VITALS (7 sets, daily range): BP systolic 91–116; BP diastolic 56–68; PULSE 64–96; RESP 17–19; TEMP 98–98.4; O2SAT 97–98
[2025-10-01 06:03] LABS: Hematocrit 31.7 % (36.0-46.0); Hemoglobin 10.5 g/dL (12.2-16.2); Mean Corpuscular Hemoglobin 30.9 pg (28.0-32.0); Mean Corpuscular Volume 93.2 fL (80.0-100.0); Nucleated Red Blood Cells % 0.3 %
[2025-10-01 06:13] LABS: Alanine Aminotransferase 34 U/L (7-40); Alkaline Phosphatase 114 U/L (46-116); Anion Gap 11 (5-15); BUN/Creatinine Ratio 38.5 (10.0-20.0); Carbon Dioxide 21 mmol/L (20-31); Chloride 106 mmol/L (98-107); Glucose 83 mg/dL (74-106); Potassium 4.2 mmol/L (3.5-5.1); Sodium 138 mmol/L (136-145); Total Protein 6.0 g/dL (5.7-8.2)
[2025-10-01 06:21] LABS: Albumin 2.7 g/dL (3.2-4.8); Bilirubin, Total 0.3 mg/dL (0.2-1.0); Blood Urea Nitrogen 40 mg/dL (9-23); Calcium 8.7 mg/dL (8.7-10.4)
--- NOTE | 2025-10-01 16:18 | DVHPNRES ---
Progress Note Date Seen: Oct 01, 2025 Resident Creating Document: MARVEL TOBAR RESIDENT Medical Necessity Reason Pt with a Central, PICC or Fol: Yes The following are medically ne: Yap Catheter Subjective Review of Systems Patient seen and examined bedside Patient is alert and oriented Swallow evaluation done, patient started on pureed diet Patient is working with PT, patient was out of bed to the but did not walk PT evaluation for SNF placement Objective vital signs Vital Sign Date Time Temp Pulse Resp B/P (MAP) Pulse Ox O2 Delivery O2 Flow Rate FiO2 10/01/25 13:00 98.0 96 19 116/60 (78) 98 98.0 10/01/25 08:00 Room Air* 0 21 Total Intake and Output 09/30/25 09/30/25 10/01/25 15:00 23:00 07:00 Intake Total 550 ml 100 ml 700 ml Output Total 802 ml 600 ml Balance -252 ml 100 ml 100 ml medications Current Medications Medications Dose Ordered Sig/Merry Route Start Time Stop Time Status Last Admin Dose Admin Ondansetron HCl 4 mg Q4HP PRN IV 09/21/25 19:45 Morphine Sulfate 2 mg Q30M PRN IV 09/21/25 19:45 UNV Micafungin Sodium 100 mg/Sodium Chloride 100 ml @ 100 mls/hr DAILY IV 09/23/25 10:00 10/01/25 16:00 100 MLS/HR Morphine Sulfate 2 mg Q4HPRN PRN IV 09/25/25 11:45 Ceftriaxone Sodium/Dextrose 50 ml @ 50 mls/hr DAILY IV 09/26/25 10:00 10/01/25 09:20 50 MLS/HR Loperamide HCl 2 mg PRN PRN PO 09/28/25 22:30 Pantoprazole Sodium 40 mg BID@0600,1700 PO 09/30/25 17:00 10/01/25 06:00 40 MG Examination General Appearance: Alert, Oriented X3, Cooperative, No acute distress HEENT: EOMI Respiratory: Clear to auscultation, Normal air movement Cardiovascular: Regular rate, Normal S1, Normal S2 Abdominal: Normal bowel sounds, multiple striae/present on the abdomen, 2 cm deep ulcerative wound present on the right lower quadrant, sacral ulcer stage II present on admission, multiple purple color macular rash present on lower extremity and arm Extremities: No cyanosis, No edema, Normal pulses, No tenderness/swelling Skin: No rashes, No breakdown Neuro: Alert and oriented laboratory and microbiology Laboratory Tests 10/01/25 05:10 Test 10/01/25 05:10 Range/Units Serum Glucose 83 74-106 mg/dL Microbiology Date/Time Source Procedure Growth Status 09/24/25 23:25 Blood Blood Culture - Final NO GROWTH AFTER 5 DAYS OF INCUBATION. Complete 09/24/25 20:40 Nose MRSA Screen - Final Complete 09/24/25 20:25 Urine - Yap Port Urine Culture - Final Complete 09/22/25 07:45 Stool Clostridium difficile Toxin Assay - Final Complete Problem List/Assessment/Plan Problem List/Assessment/Plan Neurology # metabolic/uremic encephalopathy likely due to sepsis and uremia, hypernatremia, -improved Head CT: No acute pathology # mechanical fall Head CT: No acute intracranial abnormality. Cardiology # shock, likely septic shock -improved - off pressors # hypertension -currently patient is not on antihypertensive # NSTEMI type 2 likely due to shock/SWATI Monitor Infectious disease # sepsis with septic shock likely due to UTI/wound infection -wound culture: Proteus mirabilis blood culture, : Repeat blood culture no growth urine culture : No growth - IV antibiotics discontinued, started p.o. Levaquin 500 mg daily, fluconazole 200 mg daily # multiple wound infection # ulcerative wound infection on right lower abdominal quadrant -wound culture: Proteus mirabilis - IV antibiotics - IV micafungin Endocrine # diabetes mellitus type 2 Sliding scale insulin Nephrology # SWATI likely due to sepsis, unknown baseline function -nephrology on board -Avoid nephrotoxic drugs -monitor # hyperkalemia Corrected #hypokalemia -corrected with IV potassium -Monitor BMP # hypernatremia, Likely acute, improved # Probable right adrenal myelolipoma Seen on CT GI # GI bleed -FOBT positive GI on board Started on IV Protonix 40 mg b.i.d. # mild transaminitis likely due to shock will monitor Hematology oncology # thrombocytopenia likely due to sepsis Monitor # coagulopathy likely due to sepsis Monitor Urology # complicated UTI Urine Cultures and IV antibiotics Endocrine # Morbid Obesity -will debt counselor on weight loss once more alert #DVT prophylaxis -Lovenox currently on hold because of GI bleed SCDs Lines - insert midline 09/30/25 - D/C the central line Yap's catheter placed on 09/21/2025 Patient is working with PT, patient was out of bed to the but did not walk today. Plan to discharge patient to SNF for physical therapy, social service consulted Goal of care discussed with patient for 26 minutes: Full code Plan discussed with Dr. Correa Plan discussed with: Patient My Orders My Orders Orders - MARVEL TOBAR Procedure Category Date Status Time Insert Midline ORDERS 09/30/25 Transmitted 17:03 Insert Midline ORDERS 10/01/25 Transmitted 09:23 D/C Tlc ROLLY 10/01/25 In Process 09:23 * Faceter CONS 10/01/25 Transmitted Consult Dietary Evaluation Review Comments: Nutrition Recommendation: 1) Advance diet as medically feasible 2) Clem 1 pk daily, nephro-dale 1 tab daily 3) Ensure clear 240ml TID 4) Monitor PO intake, lab values, weight trend, and I/O Expected Outcomes/Goals: Wound to improve GI symptoms to improve Intake to meet >75% estimated needs Lab values to improve FU 2-3 days Date of Service: Oct 01, 2025 Billing Provider: BEATRIZ CORREA MD Common Visit Codes: [id number] INP/OBS CARE(HIGH) MARVEL TOBAR Oct 01, 2025 16:18 BEATRIZ CORREA MD Oct 02, 2025 11:36
--- NOTE | 2025-10-01 17:32 | DVHPN2 ---
Progress Note - Dictate Date Seen: Oct 01, 2025 Medical Necessity Reason Pt with a Central, PICC or Fol: Yes The following are medically ne: Yap Catheter Subjective No new complaints Patient is tolerating a soft mechanical diet No nausea vomiting or active upper GI bleeding ; H&H is stable 10.5 and stool for occult blood was positive Troponins were elevated patient had non-STEMI vital signs Vital Sign Date Time Temp Pulse Resp B/P (MAP) Pulse Ox O2 Delivery O2 Flow Rate FiO2 10/01/25 16:53 98.4 85 19 91/60 (70) 97 98.4 10/01/25 08:00 Room Air* 0 21 Total Intake and Output 09/30/25 09/30/25 10/01/25 15:00 23:00 07:00 Intake Total 550 ml 100 ml 700 ml Output Total 802 ml 600 ml Balance -252 ml 100 ml 100 ml medications Current Medications Medications Dose Ordered Sig/Merry Route Start Time Stop Time Status Last Admin Dose Admin Ondansetron HCl 4 mg Q4HP PRN IV 09/21/25 19:45 Morphine Sulfate 2 mg Q30M PRN IV 09/21/25 19:45 UNV Morphine Sulfate 2 mg Q4HPRN PRN IV 09/25/25 11:45 Loperamide HCl 2 mg PRN PRN PO 09/28/25 22:30 Pantoprazole Sodium 40 mg BID@0600,1700 PO 09/30/25 17:00 10/01/25 16:23 40 MG Levofloxacin 500 mg DAILY PO 10/02/25 10:00 Fluconazole 200 mg DAILY PO 10/02/25 10:00 Acetaminophen 650 mg Q8HPRN PRN PO 10/01/25 16:30 objective Gen - no pallor, no scleral icterus Skin - Patients skin is warm and dry. HEENT - normocephalic, atraumatic, dry mucous membranes. Neck - supple, no lymphadenopathy Pulmonary - B/L decreased breath sounds cardiovascular - regular S1,S2 heard GI - soft abdomen with tenderness to palpation in the lower quadrants with a visible wounds in the lower abdominal quadrant. Bowel sounds normoactive. Neurological - Patient is alert and oriented x2, following commands laboratory and microbiology Laboratory Tests 10/01/25 05:10 Test 10/01/25 05:10 Range/Units Serum Glucose 83 74-106 mg/dL Problems(with codes): (1) Heme positive stool (2) Anemia (3) Altered level of consciousness (4) Sepsis (5) Acute renal failure Prognosis PLAN The patient appears to be hemodynamically stable no nausea vomiting no active GI bleeding She is tolerating diet We will maintain her on Protonix 40 mg p.o. daily She was advised to follow up in my office in 4-6 weeks to discuss outpatient elective panendoscopy once cleared by Cardiology Discharge planning to SNF Dietary Evaluation Review Comments: Nutrition Recommendation: 1) Advance diet as medically feasible 2) Clem 1 pk daily, nephro-dale 1 tab daily 3) Ensure clear 240ml TID 4) Monitor PO intake, lab values, weight trend, and I/O Expected Outcomes/Goals: Wound to improve GI symptoms to improve Intake to meet >75% estimated needs Lab values to improve FU 2-3 days Plan discussed with: Patient CHRIS DE SOUZA MD Oct 01, 2025 17:32
[2025-10-02] VITALS (8 sets, daily range): BP systolic 93–116; BP diastolic 48–66; PULSE 76–103; RESP 16–19; TEMP 97.6–98.4; O2SAT 95–98
[2025-10-02] MEDS: ACETAMINOPHEN 325 MG TAB PO PRN (00:11)
[2025-10-02] MEDS: levoFLOXacin 500 MG TAB PO SCH (09:26)
[2025-10-02] MEDS: FLUCONAZOLE 100 MG TAB PO SCH (09:26)
--- NOTE | 2025-10-02 15:44 | DVHPNRES ---
Progress Note Date Seen: Oct 02, 2025 Resident Creating Document: MARVEL TOBAR RESIDENT Medical Necessity Reason Pt with a Central, PICC or Fol: Yes The following are medically ne: Yap Catheter Subjective Review of Systems Patient seen and examined bedside Patient is alert and oriented Swallow evaluation done, patient started on pureed diet Patient is working with PT, patient was out of bed to the but did not walk Waiting for SNF placement. Objective vital signs Vital Sign Date Time Temp Pulse Resp B/P (MAP) Pulse Ox O2 Delivery O2 Flow Rate FiO2 10/02/25 12:34 97.9 76 18 110/66 (81) 96 97.9 10/02/25 08:00 Room Air* 0 21 Total Intake and Output 10/01/25 10/01/25 10/02/25 15:00 23:00 07:00 Intake Total 320 ml Output Total 750 ml Balance -430 ml medications Current Medications Medications Dose Ordered Sig/Merry Route Start Time Stop Time Status Last Admin Dose Admin Ondansetron HCl 4 mg Q4HP PRN IV 09/21/25 19:45 Morphine Sulfate 2 mg Q30M PRN IV 09/21/25 19:45 UNV Morphine Sulfate 2 mg Q4HPRN PRN IV 09/25/25 11:45 Loperamide HCl 2 mg PRN PRN PO 09/28/25 22:30 Pantoprazole Sodium 40 mg BID@0600,1700 PO 09/30/25 17:00 10/02/25 06:03 40 MG Levofloxacin 500 mg DAILY PO 10/02/25 10:00 10/02/25 09:26 500 MG Fluconazole 200 mg DAILY PO 10/02/25 10:00 10/02/25 09:26 200 MG Acetaminophen 650 mg Q8HPRN PRN PO 10/01/25 16:30 10/02/25 00:11 650 MG Examination General Appearance: Alert, Oriented X3, Cooperative, No acute distress HEENT: EOMI Respiratory: Clear to auscultation, Normal air movement Cardiovascular: Regular rate, Normal S1, Normal S2 Abdominal: Normal bowel sounds, multiple striae/present on the abdomen, 2 cm deep ulcerative wound present on the right lower quadrant, sacral ulcer stage II present on admission, multiple purple color macular rash present on lower extremity and arm Extremities: No cyanosis, No edema, Normal pulses, No tenderness/swelling Skin: No rashes, No breakdown Neuro: Alert and oriented laboratory and microbiology Laboratory Tests 10/01/25 05:10 Test 10/01/25 05:10 Range/Units Serum Glucose 83 74-106 mg/dL Microbiology Date/Time Source Procedure Growth Status 09/24/25 23:25 Blood Blood Culture - Final NO GROWTH AFTER 5 DAYS OF INCUBATION. Complete 09/24/25 20:40 Nose MRSA Screen - Final Complete 09/24/25 20:25 Urine - Yap Port Urine Culture - Final Complete 09/22/25 07:45 Stool Clostridium difficile Toxin Assay - Final Complete Problem List/Assessment/Plan Problem List/Assessment/Plan Neurology # metabolic/uremic encephalopathy likely due to sepsis and uremia, hypernatremia, -improved Head CT: No acute pathology # mechanical fall Head CT: No acute intracranial abnormality. Cardiology # shock, likely septic shock -improved - off pressors # hypertension -currently patient is not on antihypertensive # NSTEMI type 2 likely due to shock/SWATI Monitor Infectious disease # sepsis with septic shock likely due to UTI/wound infection -wound culture: Proteus mirabilis blood culture, : Repeat blood culture no growth urine culture : No growth -continue P.O Levaquin 500 mg daily, fluconazole 200 mg daily # multiple wound infection # ulcerative wound infection on right lower abdominal quadrant -wound culture: Proteus mirabilis - continue P.O Levaquin 500 mg daily, fluconazole 200 mg daily -fluconazole 200 mg daily Endocrine # diabetes mellitus type 2 Sliding scale insulin Nephrology # SWATI likely due to sepsis, unknown baseline function -nephrology on board -Avoid nephrotoxic drugs -monitor # hyperkalemia Corrected #hypokalemia -corrected with IV potassium -Monitor BMP # hypernatremia, Likely acute, improved # Probable right adrenal myelolipoma Seen on CT GI # GI bleed -FOBT positive GI on board on protonix po # mild transaminitis likely due to shock will monitor Hematology oncology # thrombocytopenia likely due to sepsis Monitor # coagulopathy likely due to sepsis Monitor Urology # complicated UTI -Abx Endocrine # Morbid Obesity -will budget counselor on weight loss once more alert #DVT prophylaxis -Lovenox currently on hold because of GI bleed SCDs Lines - insert midline 09/30/25 - D/C the central line Yap's catheter placed on 09/21/2025 Plan to discharge patient to SNF for physical therapy, social service consulted Goal of care discussed with patient for 23 minutes: Full code Plan discussed with Dr. Correa Plan discussed with: Patient My Orders My Orders Orders - MARVEL TOBAR RESIDENT Procedure Category Date Status Time Levofloxacin Tablet PHA 10/02/25 In Process (Levaquin Tablet) 10:00 Fluconazole Tablet PHA 10/02/25 In Process (Diflucan Tablet) 10:00 Acetaminophen Tablet PHA 10/01/25 In Process (Tylenol Tablet) 16:30 Dietary Evaluation Review Comments: Nutrition Recommendation: 1) Advance diet as medically feasible 2) Clem 1 pk daily, nephro-dale 1 tab daily 3) Ensure clear 240ml TID 4) Monitor PO intake, lab values, weight trend, and I/O Expected Outcomes/Goals: Wound to improve GI symptoms to improve Intake to meet >75% estimated needs Lab values to improve FU 2-3 days Date of Service: Oct 02, 2025 Billing Provider: BEATRIZ CORREA MD Common Visit Codes: [id number] INP/OBS CARE(HIGH) MARVEL TOBAR RESIDENT Oct 02, 2025 15:44 BEATRIZ CORREA MD Oct 04, 2025 12:40
--- NOTE | 2025-10-02 21:46 | DVHPN2 ---
Progress Note - Dictate Date Seen: Oct 02, 2025 Medical Necessity Reason Pt with a Central, PICC or Fol: Yes The following are medically ne: Yap Catheter Subjective No new complaints Patient is tolerating a soft mechanical diet No nausea vomiting or active upper GI bleeding ; H&H is stable 10.5 and stool for occult blood was positive Troponins were elevated patient had non-STEMI vital signs Vital Sign Date Time Temp Pulse Resp B/P (MAP) Pulse Ox O2 Delivery O2 Flow Rate FiO2 10/02/25 21:00 98.4 94 18 99/63 (75) 96 98.4 10/02/25 08:00 Room Air* 0 21 Total Intake and Output 10/01/25 10/01/25 10/02/25 15:00 23:00 07:00 Intake Total 320 ml Output Total 750 ml Balance -430 ml medications Current Medications Medications Dose Ordered Sig/Merry Route Start Time Stop Time Status Last Admin Dose Admin Ondansetron HCl 4 mg Q4HP PRN IV 09/21/25 19:45 Morphine Sulfate 2 mg Q30M PRN IV 09/21/25 19:45 UNV Morphine Sulfate 2 mg Q4HPRN PRN IV 09/25/25 11:45 Loperamide HCl 2 mg PRN PRN PO 09/28/25 22:30 Pantoprazole Sodium 40 mg BID@0600,1700 PO 09/30/25 17:00 10/02/25 17:40 40 MG Levofloxacin 500 mg DAILY PO 10/02/25 10:00 10/02/25 09:26 500 MG Fluconazole 200 mg DAILY PO 10/02/25 10:00 10/02/25 09:26 200 MG Acetaminophen 650 mg Q8HPRN PRN PO 10/01/25 16:30 10/02/25 17:41 650 MG objective Gen - no pallor, no scleral icterus Skin - Patients skin is warm and dry. HEENT - normocephalic, atraumatic, dry mucous membranes. Neck - supple, no lymphadenopathy Pulmonary - B/L decreased breath sounds cardiovascular - regular S1,S2 heard GI - soft abdomen with tenderness to palpation in the lower quadrants with a visible wounds in the lower abdominal quadrant. Bowel sounds normoactive. Neurological - Patient is alert and oriented x2, following commands laboratory and microbiology Laboratory Tests 10/01/25 05:10 Test 10/01/25 05:10 Range/Units Serum Glucose 83 74-106 mg/dL Problems(with codes): (1) Heme positive stool (2) Anemia (3) Altered level of consciousness (4) Sepsis (5) Acute renal failure Prognosis PLAN IV antibiotics discontinued, started p.o. Levaquin 500 mg daily, fluconazole 200 mg daily The patient appears to be hemodynamically stable no nausea vomiting no active GI bleeding She is tolerating diet We will maintain her on Protonix 40 mg p.o. daily She was advised to follow up in my office in 4-6 weeks to discuss outpatient elective panendoscopy once cleared by Cardiology Discharge planning to SNF Dietary Evaluation Review Comments: Nutrition Recommendation: 1) Advance diet as medically feasible 2) Clem 1 pk daily, nephro-dale 1 tab daily 3) Ensure clear 240ml TID 4) Monitor PO intake, lab values, weight trend, and I/O Expected Outcomes/Goals: Wound to improve GI symptoms to improve Intake to meet >75% estimated needs Lab values to improve FU 2-3 days Plan discussed with: Patient CHRIS DE SOUZA MD Oct 02, 2025 21:46
[2025-10-03] VITALS (8 sets, daily range): BP systolic 96–111; BP diastolic 61–71; PULSE 75–99; RESP 14–18; TEMP 98–99.2; O2SAT 96–99
--- NOTE | 2025-10-03 15:43 | DVHPNRES ---
Progress Note Date Seen: Oct 03, 2025 Resident Creating Document: MARVEL TOBAR RESIDENT Medical Necessity Reason Pt with a Central, PICC or Fol: Yes The following are medically ne: Yap Catheter Subjective Review of Systems Patient seen and examined bedside Patient is alert and oriented Swallow evaluation done, patient started on pureed diet Patient is working with PT, patient was out of bed to the but did not walk Waiting for SNF placement. Objective vital signs Vital Sign Date Time Temp Pulse Resp B/P (MAP) Pulse Ox O2 Delivery O2 Flow Rate FiO2 10/03/25 13:00 98.4 95 18 106/65 (79) 98 98.4 10/03/25 08:00 Room Air* 0 21 Total Intake and Output 10/02/25 10/02/25 10/03/25 15:00 23:00 07:00 Intake Total 1000 ml Output Total 1700 ml Balance -700 ml medications Current Medications Medications Dose Ordered Sig/Merry Route Start Time Stop Time Status Last Admin Dose Admin Ondansetron HCl 4 mg Q4HP PRN IV 09/21/25 19:45 Morphine Sulfate 2 mg Q30M PRN IV 09/21/25 19:45 UNV Morphine Sulfate 2 mg Q4HPRN PRN IV 09/25/25 11:45 Loperamide HCl 2 mg PRN PRN PO 09/28/25 22:30 Pantoprazole Sodium 40 mg BID@0600,1700 PO 09/30/25 17:00 10/03/25 06:36 40 MG Levofloxacin 500 mg DAILY PO 10/02/25 10:00 10/03/25 10:25 500 MG Fluconazole 200 mg DAILY PO 10/02/25 10:00 10/03/25 10:25 200 MG Acetaminophen 650 mg Q8HPRN PRN PO 10/01/25 16:30 10/03/25 04:44 650 MG Examination General Appearance: Alert, Oriented X3, Cooperative, No acute distress HEENT: EOMI Respiratory: Clear to auscultation, Normal air movement Cardiovascular: Regular rate, Normal S1, Normal S2 Abdominal: Normal bowel sounds, multiple striae/present on the abdomen, 2 cm deep ulcerative wound present on the right lower quadrant, sacral ulcer stage II present on admission, multiple purple color macular rash present on lower extremity and arm Extremities: No cyanosis, No edema, Normal pulses, No tenderness/swelling Skin: No rashes, No breakdown Neuro: Alert and oriented laboratory and microbiology Laboratory Tests 10/01/25 05:10 Test 10/01/25 05:10 Range/Units Serum Glucose 83 74-106 mg/dL Microbiology Date/Time Source Procedure Growth Status 09/24/25 23:25 Blood Blood Culture - Final NO GROWTH AFTER 5 DAYS OF INCUBATION. Complete 09/24/25 20:40 Nose MRSA Screen - Final Complete 09/24/25 20:25 Urine - Yap Port Urine Culture - Final Complete 09/22/25 07:45 Stool Clostridium difficile Toxin Assay - Final Complete Problem List/Assessment/Plan Problem List/Assessment/Plan Neurology # metabolic/uremic encephalopathy likely due to sepsis and uremia, hypernatremia, -improved Head CT: No acute pathology # mechanical fall Head CT: No acute intracranial abnormality. Cardiology # shock, likely septic shock -improved - off pressors # hypertension -currently patient is not on antihypertensive # NSTEMI type 2 likely due to shock/SWATI Monitor Infectious disease # sepsis with septic shock likely due to UTI/wound infection -wound culture: Proteus mirabilis blood culture, : Repeat blood culture no growth urine culture : No growth -continue P.O Levaquin 500 mg daily, fluconazole 200 mg daily # multiple wound infection # ulcerative wound infection on right lower abdominal quadrant -wound culture: Proteus mirabilis - continue P.O Levaquin 500 mg daily, fluconazole 200 mg daily -fluconazole 200 mg daily Endocrine # diabetes mellitus type 2 Sliding scale insulin Nephrology # SWATI likely due to sepsis, unknown baseline function -nephrology on board -Avoid nephrotoxic drugs -monitor # hyperkalemia Corrected #hypokalemia -corrected with IV potassium -Monitor BMP # hypernatremia, Likely acute, improved # Probable right adrenal myelolipoma Seen on CT GI # GI bleed -FOBT positive GI on board on protonix po # mild transaminitis likely due to shock will monitor Hematology oncology # thrombocytopenia likely due to sepsis Monitor # coagulopathy likely due to sepsis Monitor Urology # complicated UTI -Abx Endocrine # Morbid Obesity -will recreational counselor on weight loss once more alert #DVT prophylaxis -Lovenox currently on hold because of GI bleed SCDs Lines - D/C insert midline - D/C the central line Yap's catheter placed on 09/21/2025 Plan to discharge patient to SNF for physical therapy, social service consulted Goal of care discussed with patient for 23 minutes: Full code Case discussed with Dr. Bee Plan discussed with: Patient Dietary Evaluation Review Comments: Nutrition Recommendation: 1) Advance diet as medically feasible 2) Clem 1 pk daily, nephro-dale 1 tab daily 3) Ensure clear 240ml TID 4) Monitor PO intake, lab values, weight trend, and I/O Expected Outcomes/Goals: Wound to improve GI symptoms to improve Intake to meet >75% estimated needs Lab values to improve FU 2-3 days MARVEL TOBAR RESIDENT Oct 03, 2025 15:43
[2025-10-04] VITALS (7 sets, daily range): BP systolic 100–120; BP diastolic 51–76; PULSE 91–101; RESP 16–19; TEMP 97.5–98.9; O2SAT 96–98
--- NOTE | 2025-10-04 15:44 | DVHPNRES ---
Progress Note Date Seen: Oct 04, 2025 Resident Creating Document: IVAN STEPHEN RESIDENT Has the PT tested + for MRSA If YES, has PT been informed?: No Medical Necessity Reason Pt with a Central, PICC or Fol: Yes The following are medically ne: Yap Catheter Subjective Review of Systems Review of Systems Patient seen and examined bedside Patient is alert and oriented Swallow evaluation done, Patient is tolerating a soft mechanical diet Patient is working with PT, patient was out of bed to the but did not walk No nausea vomiting or active upper GI bleeding Waiting for SNF placement. Objective vital signs Vital Sign Date Time Temp Pulse Resp B/P (MAP) Pulse Ox O2 Delivery O2 Flow Rate FiO2 10/04/25 13:00 98.7 99 18 107/59 (75) 96 98.7 10/04/25 08:00 Room Air* 0 21 Total Intake and Output 10/03/25 10/03/25 10/04/25 15:00 23:00 07:00 Intake Total 1640 ml Output Total 650 ml Balance 990 ml medications Current Medications Medications Dose Ordered Sig/Merry Route Start Time Stop Time Status Last Admin Dose Admin Ondansetron HCl 4 mg Q4HP PRN IV 09/21/25 19:45 Morphine Sulfate 2 mg Q30M PRN IV 09/21/25 19:45 UNV Loperamide HCl 2 mg PRN PRN PO 09/28/25 22:30 Pantoprazole Sodium 40 mg BID@0600,1700 PO 09/30/25 17:00 10/04/25 05:42 40 MG Levofloxacin 500 mg DAILY PO 10/02/25 10:00 10/04/25 09:40 500 MG Fluconazole 200 mg DAILY PO 10/02/25 10:00 10/04/25 09:40 200 MG Acetaminophen 650 mg Q8HPRN PRN PO 10/01/25 16:30 10/04/25 14:56 650 MG Examination General Appearance: Alert, Oriented X3, Cooperative, No acute distress HEENT: EOMI Respiratory: Clear to auscultation, Normal air movement Cardiovascular: Regular rate, Normal S1, Normal S2 Abdominal: Normal bowel sounds, multiple striae/present on the abdomen, 2 cm deep ulcerative wound present on the right lower quadrant, sacral ulcer stage II present on admission, multiple purple color macular rash present on lower extremity and arm Extremities: No cyanosis, No edema, Normal pulses, No tenderness/swelling Skin: No rashes, No breakdown Neuro: Alert and oriented laboratory and microbiology Laboratory Tests 10/01/25 05:10 Test 10/01/25 05:10 Range/Units Serum Glucose 83 74-106 mg/dL Microbiology Date/Time Source Procedure Growth Status 09/24/25 23:25 Blood Blood Culture - Final NO GROWTH AFTER 5 DAYS OF INCUBATION. Complete 09/24/25 20:40 Nose MRSA Screen - Final Complete 09/24/25 20:25 Urine - Yap Port Urine Culture - Final Complete 09/22/25 07:45 Stool Clostridium difficile Toxin Assay - Final Complete Problem List/Assessment/Plan Problem List/Assessment/Plan Problem List/Assessment/Plan Neurology # metabolic/uremic encephalopathy likely due to sepsis and uremia, hypernatremia, -improved Head CT: No acute pathology # mechanical fall Head CT: No acute intracranial abnormality. Cardiology # shock, likely septic shock -improved - off pressors # hypertension -currently patient is not on antihypertensive # NSTEMI type 2 likely due to shock/SWATI Monitor Infectious disease # sepsis with septic shock likely due to UTI/wound infection -wound culture: Proteus mirabilis blood culture, : Repeat blood culture no growth urine culture : No growth -continue P.O Levaquin 500 mg daily, fluconazole 200 mg daily # multiple wound infection # ulcerative wound infection on right lower abdominal quadrant -wound culture: Proteus mirabilis - continue P.O Levaquin 500 mg daily, fluconazole 200 mg daily -fluconazole 200 mg daily Endocrine # diabetes mellitus type 2 Sliding scale insulin Nephrology # SWATI likely due to sepsis, unknown baseline function -nephrology on board -Avoid nephrotoxic drugs -monitor # hyperkalemia Corrected #hypokalemia -corrected with IV potassium -Monitor BMP # hypernatremia, Likely acute, improved # Probable right adrenal myelolipoma Seen on CT GI # GI bleed -FOBT positive GI on board on protonix po # mild transaminitis likely due to shock will monitor Hematology oncology # thrombocytopenia likely due to sepsis Monitor # coagulopathy likely due to sepsis Monitor Urology # complicated UTI -Abx Endocrine # Morbid Obesity -will halfway house counselor on weight loss once more alert #DVT prophylaxis -Lovenox currently on hold because of GI bleed SCDs Lines - D/C insert midline - D/C the central line Yap's catheter placed on 09/21/2025 PT : Patient is doing PT as scheduled. Plan to discharge patient to SNF for physical therapy, social service consulted pending bed availability Goal of care discussed with patient for 23 minutes: Full code Case discussed with Dr. Bee Plan discussed with: Patient (RN) Dietary Evaluation Review Comments: Nutrition Recommendation: 1) Advance diet as medically feasible 2) Clem 1 pk daily, nephro-dale 1 tab daily 3) Ensure clear 240ml TID 4) Monitor PO intake, lab values, weight trend, and I/O Expected Outcomes/Goals: Wound to improve GI symptoms to improve Intake to meet >75% estimated needs Lab values to improve FU 2-3 days IVAN STEPHEN RESIDENT Oct 04, 2025 15:44
--- NOTE | 2025-10-04 20:00 | DVHPN2 ---
Progress Note - Dictate Date Seen: Oct 04, 2025 Has the PT tested + for MRSA If YES, has PT been informed?: No Medical Necessity Reason Pt with a Central, PICC or Fol: Yes The following are medically ne: Yap Catheter Subjective Patient complains of fullness on palpation of the left breast Patient is tolerating a soft mechanical diet No nausea vomiting or active upper GI bleeding ; H&H is stable 10.5 and stool for occult blood was positive Troponins were elevated patient had non-STEMI vital signs Vital Sign Date Time Temp Pulse Resp B/P (MAP) Pulse Ox O2 Delivery O2 Flow Rate FiO2 10/04/25 17:00 98.8 101 19 109/64 (79) 97 98.8 10/04/25 08:00 Room Air* 0 21 Total Intake and Output 10/03/25 10/03/25 10/04/25 14:59 22:59 06:59 Intake Total 1640 ml Output Total 650 ml Balance 990 ml medications Current Medications Medications Dose Ordered Sig/Merry Route Start Time Stop Time Status Last Admin Dose Admin Ondansetron HCl 4 mg Q4HP PRN IV 09/21/25 19:45 Morphine Sulfate 2 mg Q30M PRN IV 09/21/25 19:45 UNV Loperamide HCl 2 mg PRN PRN PO 09/28/25 22:30 Pantoprazole Sodium 40 mg BID@0600,1700 PO 09/30/25 17:00 10/04/25 17:39 40 MG Levofloxacin 500 mg DAILY PO 10/02/25 10:00 10/04/25 09:40 500 MG Fluconazole 200 mg DAILY PO 10/02/25 10:00 10/04/25 09:40 200 MG Acetaminophen 650 mg Q8HPRN PRN PO 10/01/25 16:30 10/04/25 14:56 650 MG objective Gen - no pallor, no scleral icterus Skin - Patients skin is warm and dry. HEENT - normocephalic, atraumatic, dry mucous membranes. Neck - supple, no lymphadenopathy Left breast shows areas of ecchymosis bruising some scar and interested scabs Patient stated she had left breast injury when she fell to three weeks ago Pulmonary - B/L decreased breath sounds cardiovascular - regular S1,S2 heard GI - soft abdomen with tenderness to palpation in the lower quadrants with a visible wounds in the lower abdominal quadrant. Bowel sounds normoactive. Neurological - Patient is alert and oriented x2, following commands laboratory and microbiology Laboratory Tests 10/01/25 05:10 Test 10/01/25 05:10 Range/Units Serum Glucose 83 74-106 mg/dL Problems(with codes): (1) Left breast lump (2) Heme positive stool (3) Anemia (4) Altered level of consciousness (5) Sepsis (6) Acute renal failure (7) Wound of left breast Prognosis PLAN IV antibiotics discontinued, started p.o. Levaquin 500 mg daily, fluconazole 200 mg daily The patient appears to be hemodynamically stable no nausea vomiting no active GI bleeding She is tolerating diet ; We will maintain her on Protonix 40 mg p.o. daily She was advised to follow up in my office in 4-6 weeks to discuss outpatient elective panendoscopy once cleared by Cardiology Discharge planning to SNF Dietary Evaluation Review Comments: Nutrition Recommendation: 1) Advance diet as medically feasible 2) Clem 1 pk daily, nephro-dale 1 tab daily 3) Ensure clear 240ml TID 4) Monitor PO intake, lab values, weight trend, and I/O Expected Outcomes/Goals: Wound to improve GI symptoms to improve Intake to meet >75% estimated needs Lab values to improve FU 2-3 days Plan discussed with: Patient CHRIS DE SOUZA MD Oct 04, 2025 20:00
[2025-10-05] VITALS (9 sets, daily range): BP systolic 83–104; BP diastolic 50–64; PULSE 90–103; RESP 17–20; TEMP 97.4–98.6; O2SAT 91–96
[2025-10-05 07:09] LABS: Chloride 105 mmol/L (98-107); Potassium 4.6 mmol/L (3.5-5.1); Sodium 138 mmol/L (136-145)
[2025-10-05 07:10] LABS: Anion Gap 11 (5-15); Carbon Dioxide 22 mmol/L (20-31)
[2025-10-05 07:15] LABS: BUN/Creatinine Ratio 30.5 (10.0-20.0); Glucose 80 mg/dL (74-106)
[2025-10-05 07:17] LABS: Blood Urea Nitrogen 36 mg/dL (9-23); Calcium 8.5 mg/dL (8.7-10.4)
[2025-10-05 09:13] LABS: Hematocrit 28.2 % (36.0-46.0); Hemoglobin 9.1 g/dL (12.2-16.2); Mean Corpuscular Hemoglobin 30.3 pg (28.0-32.0); Mean Corpuscular Volume 93.7 fL (80.0-100.0); Nucleated Red Blood Cells % 0.0 %
--- NOTE | 2025-10-05 13:20 | DVHDSRES ---
Discharge Summary Date of Admission Resident Creating Document: MARVEL TOBAR RESIDENT Sep 21, 2025 at 19:35 Date of Discharge: Oct 05, 2025 Labs/Diagnostic Data: Laboratory Results Test 10/05/25 08:21 10/05/25 04:40 10/01/25 05:10 09/30/25 17:06 White Blood Count 5.7 10^3/uL (4.4-10.8) Red Blood Count 3.01 10^6/uL (4.0-5.20) Hemoglobin 9.1 g/dL (12.2-16.2) Hematocrit 28.2 % (36.0-46.0) Mean Corpuscular Volume 93.7 fL (80.0-100.0) Mean Corpuscular Hemoglobin 30.3 pg (28.0-32.0) Mean Corpuscular Hemoglobin Concent 32.4 g/dL (32.0-36.0) Red Cell Distribution Width 16.0 % (11.8-14.3) Platelet Count 264 10^3/uL (140-450) Mean Platelet Volume 8.7 fL (6.9-10.8) Neutrophils (%) (Auto) 66.2 % (37.0-80.0) Lymphocytes (%) (Auto) 22.3 % (10.0-50.0) Monocytes (%) (Auto) 5.7 % (0.0-12.0) Eosinophils (%) (Auto) 5.1 % (0.0-7.0) Basophils (%) (Auto) 0.7 % (0.0-2.0) Neutrophils # (Auto) 3.8 10 ^3/uL (1.6-8.6) Lymphocytes # (Auto) 1.3 10 ^3/uL (0.4-5.4) Monocytes # (Auto) 0.3 10 ^3/uL (0-1.3) Eosinophils # (Auto) 0.3 10 ^3/uL (0-0.8) Basophils # (Auto) 0 10 ^3/uL (0-0.2) Nucleated Red Blood Cells 0.0 % Sodium Level 138 mmol/L (136-145) Potassium Level 4.6 mmol/L (3.5-5.1) Chloride Level 105 mmol/L (98-107) Carbon Dioxide Level 22 mmol/L (20-31) Anion Gap 11 (5-15) Blood Urea Nitrogen 36 mg/dL (9-23) Creatinine 1.18 mg/dL (0.550-1.02) Glomerular Filtration Rate Calc 53 mL/min (>90) BUN/Creatinine Ratio 30.5 (10.0-20.0) Serum Glucose 80 mg/dL (74-106) Calcium Level 8.5 mg/dL (8.7-10.4) Total Bilirubin 0.3 mg/dL (0.2-1.0) Aspartate Amino Transferase (AST) 53 U/L (13-40) Alanine Aminotransferase (ALT) 34 U/L (7-40) Alkaline Phosphatase 114 U/L (46-116) Total Protein 6.0 g/dL (5.7-8.2) Albumin 2.7 g/dL (3.2-4.8) POC Glucose 71 mg/dl (70-106) Test 09/30/25 05:25 09/28/25 15:04 09/28/25 08:23 09/27/25 04:00 Phosphorus Level 2.6 mg/dL (2.4-5.1) Magnesium Level 1.4 mg/dL (1.6-2.6) Random Vancomycin Level 8.9 ug/mL (5-10) Cortisol PM Sample 13.89 ug/dL (3.44-16.76) Cortisol AM Sample 13.31 ug/dL (5.27-22.45) Triglycerides Level 160 mg/dL (< 150) Thyroid Stimulating Hormone (TSH) 8.94 uIU/mL (0.55-4.78) Test 09/24/25 20:40 09/24/25 20:25 09/24/25 04:00 09/23/25 06:05 Urine Color Colorless (Yellow) Urine Clarity Turbid (Clear) Urine pH 5.0 (5.0-9.0) Urine Specific [place] 1.008 (1.001-1.035) Urine Protein Negative (Negative) Urine Ketones Negative (Negative) Urine Blood 1+ /uL (Negative) Urine Nitrite Negative (Negative) Urine Bilirubin Negative (Negative) Urine Urobilinogen Normal mg/dL (Negative) Urine Leukocyte Esterase 1+ /uL (Negative) Urine RBC 4 /hpf (0 - 4) Urine Microscopic WBC 6 /HPF (0-5) Urine Squamous Epithelial Cells Few /hpf (<5) Urine Amorphous Crystals Few /hpf (None Seen) Urine Bacteria Mod /hpf (None Seen) Urine Mucus Few (None Seen) Urine Glucose Normal mg/dL (Normal) Urine Creatinine 34.98 mg/dL (30.0-125.0) Urine Sodium 17 mmol/L (40-220) Urine Total Protein 27.1 mg/dL (1-14) Estimated GFR () 9 mL/min Estimated GFR (Non- 8 mL/min Blood Gas Specimen Type Arterial Blood Gas Sample Site Right radial Blood Gas Patient Temperature 37.0 Arterial Blood Date Drawn [id number] Arterial Blood pH 7.336 (7.350-7.450) Arterial Blood Partial Pressure CO2 28.4 mmHg (32.0-45.0) Arterial Blood Partial Pressure O2 86.8 mmHg (83.0-108.0) Arterial Blood HCO3 14.8 mmol/L (21.0-28.0) Arterial Blood Oxygen Saturation 96.0 % (94.0-98.0) Arterial Blood Base Excess -9.5 mmol/L (-2.0-3.0) Arterial Blood Oxyhemoglobin 95.4 % (94.0-98.0) Arterial Blood Carboxyhemoglobin 0.4 % (0.5-1.5) Arterial Blood Methemoglobin 0.2 % (0.0-1.5) Aristeo Test Yes Blood Gas Total Hemoglobin 12.80 g/dL (12.0-16.0) Blood Gas Modality Room air FiO2 % 21.0 Test 09/23/25 03:30 09/22/25 12:56 09/22/25 02:45 09/21/25 22:51 Creatine Kinase 1101 U/L (34-145) Lactic Acid Level 2.5 mmol/L (0.4-2.0) Troponin I High Sensitivity 482 ng/L (</=34) Urine Hyaline Casts Few /lpf (0 - 2) Urine Opiates Screen Neg (NEGATIVE) Urine Fentanyl Screen Neg (NEGATIVE) Urine Barbiturates Screen Neg (NEGATIVE) Urine Phencyclidine Screen Neg (NEGATIVE) Urine Amphetamines Screen Neg (NEGATIVE) Urine Benzodiazepines Screen Neg (NEGATIVE) Urine Cocaine Screen Neg (NEGATIVE) Urine Cannabinoids Screen Neg (NEGATIVE) Stool Occult Blood Positive (Negative) Stool Occult Blood Sample #3 (Negative) Test 09/21/25 15:40 09/21/25 15:09 Blood Gas Critical Value Read Back yes Blood Gas Notified Whom Blood Gas Notified Time [id number] Blood Gas Notified By pbx teacher eliz Prothrombin Time 12.5 sec (9.3-11.8) Prothrombin Time INR 1.20 (0.9-1.15) Activated Partial Thromboplast Time 25.1 SEC (24.5-34.5) Plasma/Serum Blood Alcohol < 3.0 mg/dL (<10) Other Laboratory Tests 10/05/25 08:21 10/05/25 04:40 Brief Hx & Hospital Course: 60-year-old female presents for evaluation of altered mental status. Patient is lethargic oriented x2. Patient was found on the floor covered in bloody stool and confused by family members. Family had not heard from her in the past two days. Denies chest pain or shortness for breath. No unilateral weakness or slurred speech noted. Patient had platelet diary and blood pressure went down needed vasopressor support and patient went to the ICU, patient improved and patient downgraded to [facility], patient had multiple wounds on abdomen thigh and left breast, wound care provided, patient is very weak and can not walk, patient is walking with physical therapy right now patient needs physical therapy either so I patient is going to be discharged to SNF for physical therapy. Condition at Discharge: Guarded Final Diagnosis/Problems List # metabolic/uremic encephalopathy likely due to sepsis and uremia, hypernatremia, # mechanical fall # Anemia most likely iron deficiency # Wound of left breast # shock, likely septic shock # hypertension # NSTEMI type 2 likely due to shock/SWATI # sepsis with septic shock likely due to UTI/wound infection # multiple wound infection # ulcerative wound infection on right lower abdominal quadrant # diabetes mellitus type 2 # SWATI likely due to sepsis, unknown baseline function # hyperkalemia #hypokalemia # hypernatremia, Likely acute, improved # Probable right adrenal myelolipoma # GI bleed # mild transaminitis likely due to shock # thrombocytopenia likely due to sepsis # coagulopathy likely due to sepsis # complicated UTI # Morbid Obesity [facility]charge [facility] Discharge Instruct/Medications Diet: Consistent carbohydrate, Cardiac 2g Na,low cholest Activity: No Restrictions, As Tolerated Follow Up/Referral: As per facility protocol Medications: As per medication list Scheduled Prednisone (Prednisone), 40 MG PO DAILY Discharge Statement: "Patient was advised to return to the ER or call 911 if any headaches, dizziness, shortness of breath, chest pain, abdominal pain, bleeding, fevers, or worsening of medical condition. Patient was counseled about treatment plan, medications, possible side effects, patientverbalized understanding. All questions were answered to the best of my ability. This discharge took greater then 30 minutes in planning, reviewing documentation, counseling the patient, and discussing with other team members." ASSESSMENT ASSESSMENT Assessment # metabolic/uremic encephalopathy likely due to sepsis and uremia, hypernatremia, # mechanical fall # shock, likely septic shock # hypertension # NSTEMI type 2 likely due to shock/SWATI # sepsis with septic shock likely due to UTI/wound infection # multiple wound infection # ulcerative wound infection on right lower abdominal quadrant # diabetes mellitus type 2 # SWATI likely due to sepsis, unknown baseline function # hyperkalemia #hypokalemia # hypernatremia, Likely acute, improved # Probable right adrenal myelolipoma # GI bleed # mild transaminitis likely due to shock # thrombocytopenia likely due to sepsis # coagulopathy likely due to sepsis # complicated UTI # Morbid Obesity MARVEL TOBAR RESIDENT Oct 05, 2025 13:20
[2025-10-05] MEDS: ACETAMINOPHEN 325 MG TAB PO PRN (17:45)
--- NOTE | 2025-10-05 19:52 | DVHPN2 ---
Progress Note - Dictate Date Seen: Oct 05, 2025 Has the PT tested + for MRSA If YES, has PT been informed?: No Medical Necessity Reason Pt with a Central, PICC or Fol: Yes The following are medically ne: Yap Catheter Subjective No new complaints; Patient complains of fullness on palpation of the left breast Patient is tolerating a soft mechanical diet No nausea vomiting or active upper GI bleeding ; H&H is stable 9.1 and stool for occult blood was positive Troponins were elevated patient had non-STEMI vital signs Vital Sign Date Time Temp Pulse Resp B/P (MAP) Pulse Ox O2 Delivery O2 Flow Rate FiO2 10/05/25 16:45 98.6 96 18 101/64 (76) 94 98.6 10/05/25 08:10 Room Air* 0 21 medications Current Medications Medications Dose Ordered Sig/Merry Route Start Time Stop Time Status Last Admin Dose Admin Ondansetron HCl 4 mg Q4HP PRN IV 09/21/25 19:45 Morphine Sulfate 2 mg Q30M PRN IV 09/21/25 19:45 UNV Loperamide HCl 2 mg PRN PRN PO 09/28/25 22:30 Pantoprazole Sodium 40 mg BID@0600,1700 PO 09/30/25 17:00 10/05/25 17:00 40 MG Levofloxacin 500 mg DAILY PO 10/02/25 10:00 10/05/25 09:07 500 MG Fluconazole 200 mg DAILY PO 10/02/25 10:00 10/05/25 09:07 200 MG Acetaminophen 650 mg Q6HP PRN PO 10/05/25 14:45 10/05/25 17:45 650 MG objective Gen - no pallor, no scleral icterus Skin - Patients skin is warm and dry. HEENT - normocephalic, atraumatic, dry mucous membranes. Neck - supple, no lymphadenopathy Left breast shows areas of ecchymosis bruising some scar and interested scabs Patient stated she had left breast injury when she fell to three weeks ago Pulmonary - B/L decreased breath sounds cardiovascular - regular S1,S2 heard GI - soft abdomen with tenderness to palpation in the lower quadrants with a visible wounds in the lower abdominal quadrant. Bowel sounds normoactive. Neurological - Patient is alert and oriented x2, following commands laboratory and microbiology Laboratory Tests 10/05/25 08:21 10/05/25 04:40 Test 10/05/25 04:40 Range/Units Serum Glucose 80 74-106 mg/dL Problems(with codes): (1) Wound of left breast (2) Heme positive stool (3) Anemia (4) Sepsis (5) Acute renal failure Prognosis PLAN IV antibiotics discontinued, started p.o. Levaquin 500 mg daily, fluconazole 200 mg daily The patient appears to be hemodynamically stable no nausea vomiting no active GI bleeding She is tolerating diet ; We will maintain her on Protonix 40 mg p.o. daily She was advised to follow up in my office in 4-6 weeks to discuss outpatient elective panendoscopy once cleared by Cardiology Discharge planning to SNF Dietary Evaluation Review Comments: Nutrition Recommendation: 1) Advance diet as medically feasible 2) Clem 1 pk daily, nephro-dale 1 tab daily 3) Ensure clear 240ml TID 4) Monitor PO intake, lab values, weight trend, and I/O Expected Outcomes/Goals: Wound to improve GI symptoms to improve Intake to meet >75% estimated needs Lab values to improve FU 2-3 days Plan discussed with: Patient CHRIS DE SOUZA MD Oct 05, 2025 19:52
[2025-10-06] VITALS (9 sets, daily range): BP systolic 81–108; BP diastolic 43–78; PULSE 79–105; RESP 16–18; TEMP 97.5–98.2; O2SAT 94–99
[2025-10-06] MEDS ORDERED: HYDROcodone-ACET 5/325MG TAB PO PRN (09:30)
--- NOTE | 2025-10-06 10:16 | DVHPNRES ---
Progress Note Date Seen: Oct 06, 2025 Resident Creating Document: MARVEL TOBAR RESIDENT Has the PT tested + for MRSA If YES, has PT been informed?: No Medical Necessity Reason Pt with a Central, PICC or Fol: Yes The following are medically ne: Yap Catheter Subjective Review of Systems Patient seen and examined bedside Patient is alert and oriented Swallow evaluation done, Patient is tolerating a soft mechanical diet Patient is working with PT, patient was out of bed to the but did not walk No nausea vomiting or active upper GI bleeding Waiting for SNF placement. Objective vital signs Vital Sign Date Time Temp Pulse Resp B/P (MAP) Pulse Ox O2 Delivery O2 Flow Rate FiO2 10/06/25 09:00 97.9 104 16 102/75 (84) 96 97.9 10/06/25 07:49 Room Air* 0 21 medications Current Medications Medications Dose Ordered Sig/Merry Route Start Time Stop Time Status Last Admin Dose Admin Ondansetron HCl 4 mg Q4HP PRN IV 09/21/25 19:45 Morphine Sulfate 2 mg Q30M PRN IV 09/21/25 19:45 UNV Loperamide HCl 2 mg PRN PRN PO 09/28/25 22:30 Pantoprazole Sodium 40 mg BID@0600,1700 PO 09/30/25 17:00 10/06/25 06:00 40 MG Levofloxacin 500 mg DAILY PO 10/02/25 10:00 10/06/25 09:17 500 MG Fluconazole 200 mg DAILY PO 10/02/25 10:00 10/06/25 09:18 200 MG Acetaminophen 650 mg Q6HP PRN PO 10/05/25 14:45 10/05/25 17:45 650 MG Acetaminophen/ Hydrocodone Bitart 1 tab Q8HPRN PRN PO 10/06/25 09:30 Examination General Appearance: Alert, Oriented X3, Cooperative, No acute distress HEENT: EOMI Respiratory: Clear to auscultation, Normal air movement Cardiovascular: Regular rate, Normal S1, Normal S2 Abdominal: Normal bowel sounds, multiple striae/present on the abdomen, 2 cm deep ulcerative wound present on the right lower quadrant, sacral ulcer stage II present on admission, multiple purple color macular rash present on lower extremity and arm Extremities: No cyanosis, No edema, Normal pulses, No tenderness/swelling Skin: No rashes, No breakdown Neuro: Alert and oriented laboratory and microbiology Laboratory Tests 10/05/25 08:21 10/05/25 04:40 Test 10/05/25 04:40 Range/Units Serum Glucose 80 74-106 mg/dL Microbiology Date/Time Source Procedure Growth Status 09/24/25 23:25 Blood Blood Culture - Final NO GROWTH AFTER 5 DAYS OF INCUBATION. Complete 09/24/25 20:40 Nose MRSA Screen - Final Complete 09/24/25 20:25 Urine - Yap Port Urine Culture - Final Complete 09/22/25 07:45 Stool Clostridium difficile Toxin Assay - Final Complete Problem List/Assessment/Plan Problem List/Assessment/Plan Neurology # metabolic/uremic encephalopathy likely due to sepsis and uremia, hypernatremia, -improved Head CT: No acute pathology # mechanical fall Head CT: No acute intracranial abnormality. Cardiology # shock, likely septic shock -improved - off pressors # hypertension -currently patient is not on antihypertensive # NSTEMI type 2 likely due to shock/SWATI Monitor Infectious disease # sepsis with septic shock likely due to UTI/wound infection -wound culture: Proteus mirabilis blood culture, : Repeat blood culture no growth urine culture : No growth -continue P.O Levaquin 500 mg daily, fluconazole 200 mg daily # multiple wound infection # ulcerative wound infection on right lower abdominal quadrant -wound culture: Proteus mirabilis - continue P.O Levaquin 500 mg daily, fluconazole 200 mg daily -fluconazole 200 mg daily Endocrine # diabetes mellitus type 2 Sliding scale insulin Nephrology # SWATI likely due to sepsis, unknown baseline function -nephrology on board -Avoid nephrotoxic drugs -monitor # hyperkalemia Corrected #hypokalemia -corrected with IV potassium -Monitor BMP # hypernatremia, Likely acute, improved # Probable right adrenal myelolipoma Seen on CT GI # GI bleed -FOBT positive GI on board on protonix po # mild transaminitis likely due to shock will monitor Hematology oncology # thrombocytopenia likely due to sepsis Monitor # coagulopathy likely due to sepsis Monitor Urology # complicated UTI -Abx Endocrine # Morbid Obesity -will career counselor on weight loss once more alert #DVT prophylaxis -Lovenox currently on hold because of GI bleed SCDs Patient is waiting for SNF placement Goal of care discussed with patient for 23 minutes: Full code Case discussed with Dr. Correa. Plan discussed with: Patient My Orders My Orders Orders - HASAN,RASHEDUL RESIDENT Procedure Category Date Status Time Discharge DISCHARGE 10/05/25 Transmitted 13:15 Dietary Evaluation Review Comments: Nutrition Recommendation: 1) Advance diet as medically feasible 2) Clem 1 pk daily, nephro-dale 1 tab daily 3) Ensure clear 240ml TID 4) Monitor PO intake, lab values, weight trend, and I/O Expected Outcomes/Goals: Wound to improve GI symptoms to improve Intake to meet >75% estimated needs Lab values to improve FU 2-3 days Date of Service: Oct 06, 2025 Billing Provider: BEATRIZ CORREA MD Common Visit Codes: [id number] INP/OBS CARE(HIGH) Secondary Visit Codes: [id number] CARE PLAN 30 MINUTES MARVEL TOBAR Oct 06, 2025 10:16 BEATRIZ CORREA MD Oct 09, 2025 11:15
--- NOTE | 2025-10-06 12:58 | DVH ---
EXAM: XY R WRIST 2 VIEW XRAY CLINICAL INDICATION: Rt wrist pain TECHNIQUE: XY R WRIST 2 VIEW XRAY Comparison: None FINDINGS/IMPRESSION: There is no evidence of acute fracture or dislocation. The visualized joint space is well maintained. The alignment is anatomical. There is no radiopaque foreign body.
--- NOTE | 2025-10-06 14:34 | DVHPN2 ---
Progress Note - Dictate Date Seen: Oct 06, 2025 Has the PT tested + for MRSA If YES, has PT been informed?: No Medical Necessity Reason Pt with a Central, PICC or Fol: Yes The following are medically ne: Yap Catheter Subjective No new complaints; patient undergoing PT Patient is tolerating a soft mechanical diet No nausea vomiting or active upper GI bleeding ; H&H is stable 9.1 and stool for occult blood was positive Troponins were elevated patient had non-STEMI vital signs Vital Sign Date Time Temp Pulse Resp B/P (MAP) Pulse Ox O2 Delivery O2 Flow Rate FiO2 10/06/25 13:00 95/78 (84) 10/06/25 12:38 98.1 96 18 99 98.1 10/06/25 07:49 Room Air* 0 21 medications Current Medications Medications Dose Ordered Sig/Merry Route Start Time Stop Time Status Last Admin Dose Admin Ondansetron HCl 4 mg Q4HP PRN IV 09/21/25 19:45 Morphine Sulfate 2 mg Q30M PRN IV 09/21/25 19:45 UNV Loperamide HCl 2 mg PRN PRN PO 09/28/25 22:30 Pantoprazole Sodium 40 mg BID@0600,1700 PO 09/30/25 17:00 10/06/25 06:00 40 MG Levofloxacin 500 mg DAILY PO 10/02/25 10:00 10/06/25 09:17 500 MG Fluconazole 200 mg DAILY PO 10/02/25 10:00 10/06/25 09:18 200 MG Acetaminophen 650 mg Q6HP PRN PO 10/05/25 14:45 10/06/25 14:18 650 MG Acetaminophen/ Hydrocodone Bitart 1 tab Q8HPRN PRN PO 10/06/25 09:30 objective Gen - no pallor, no scleral icterus Skin - Patients skin is warm and dry. HEENT - normocephalic, atraumatic, dry mucous membranes. Neck - supple, no lymphadenopathy Left breast shows areas of ecchymosis bruising some scar and interested scabs Patient stated she had left breast injury when she fell to three weeks ago Pulmonary - B/L decreased breath sounds cardiovascular - regular S1,S2 heard GI - soft abdomen with tenderness to palpation in the lower quadrants with a visible wounds in the lower abdominal quadrant. Bowel sounds normoactive. Neurological - Patient is alert and oriented x2, following commands laboratory and microbiology Laboratory Tests 10/05/25 08:21 10/05/25 04:40 Test 10/05/25 04:40 Range/Units Serum Glucose 80 74-106 mg/dL Problems(with codes): (1) Wound of left breast (2) Heme positive stool (3) Anemia (4) Sepsis (5) Acute renal failure Prognosis PLAN IV antibiotics discontinued, started p.o. Levaquin 500 mg daily, fluconazole 200 mg daily The patient appears to be hemodynamically stable no nausea vomiting no active GI bleeding She is tolerating diet ; We will maintain her on Protonix 40 mg p.o. daily She was advised to follow up in my office in 4-6 weeks to discuss outpatient elective panendoscopy once cleared by Cardiology Discharge planning to SNF Dietary Evaluation Review Comments: Nutrition Recommendation: 1) Advance diet as medically feasible 2) Clem 1 pk daily, nephro-dale 1 tab daily 3) Ensure clear 240ml TID 4) Monitor PO intake, lab values, weight trend, and I/O Expected Outcomes/Goals: Wound to improve GI symptoms to improve Intake to meet >75% estimated needs Lab values to improve FU 2-3 days Plan discussed with: Patient CHRIS DE SOUZA MD Oct 06, 2025 14:34
[2025-10-07] VITALS (7 sets, daily range): BP systolic 91–112; BP diastolic 45–66; PULSE 83–104; RESP 15–17; TEMP 98.1–98.9; O2SAT 94–98
--- NOTE | 2025-10-07 09:18 | DVHPNRES ---
Progress Note Date Seen: Oct 07, 2025 Resident Creating Document: MARVEL TOBAR RESIDENT Has the PT tested + for MRSA If YES, has PT been informed?: No Medical Necessity Reason Pt with a Central, PICC or Fol: Yes The following are medically ne: Yap Catheter Subjective Review of Systems Patient seen and examined bedside Patient is alert and oriented Swallow evaluation done, Patient is tolerating a soft mechanical diet Patient is working with PT, patient was out of bed to the but did not walk Was complaining of wrist pain, Waiting for SNF placement Objective vital signs Vital Sign Date Time Temp Pulse Resp B/P (MAP) Pulse Ox O2 Delivery O2 Flow Rate FiO2 10/07/25 07:02 97.8 10/07/25 05:14 88 16 95/45 (62) 96 10/06/25 20:00 Room Air* 0 21 Total Intake and Output 10/06/25 10/06/25 10/07/25 15:00 23:00 07:00 Intake Total 1200 ml 150 ml Output Total 2800 ml 1250 ml Balance -1600 ml -1100 ml medications Current Medications Medications Dose Ordered Sig/Merry Route Start Time Stop Time Status Last Admin Dose Admin Ondansetron HCl 4 mg Q4HP PRN IV 09/21/25 19:45 Morphine Sulfate 2 mg Q30M PRN IV 09/21/25 19:45 UNV Loperamide HCl 2 mg PRN PRN PO 09/28/25 22:30 Pantoprazole Sodium 40 mg BID@0600,1700 PO 09/30/25 17:00 10/07/25 06:02 40 MG Levofloxacin 500 mg DAILY PO 10/02/25 10:00 10/06/25 09:17 500 MG Fluconazole 200 mg DAILY PO 10/02/25 10:00 10/06/25 09:18 200 MG Acetaminophen 650 mg Q6HP PRN PO 10/05/25 14:45 10/07/25 06:02 650 MG Acetaminophen/ Hydrocodone Bitart 1 tab Q8HPRN PRN PO 10/06/25 09:30 Examination General Appearance: Alert, Oriented X3, Cooperative, No acute distress HEENT: EOMI Respiratory: Clear to auscultation, Normal air movement Cardiovascular: Regular rate, Normal S1, Normal S2 Abdominal: Normal bowel sounds, multiple striae/present on the abdomen, 2 cm deep ulcerative wound present on the right lower quadrant, sacral ulcer stage II present on admission, multiple purple color macular rash present on lower extremity and arm Extremities: No cyanosis, No edema, Normal pulses, No tenderness/swelling Skin: No rashes, No breakdown Neuro: Alert and oriented laboratory and microbiology Laboratory Tests 10/05/25 08:21 10/05/25 04:40 Test 10/05/25 04:40 Range/Units Serum Glucose 80 74-106 mg/dL Microbiology Date/Time Source Procedure Growth Status 09/24/25 23:25 Blood Blood Culture - Final NO GROWTH AFTER 5 DAYS OF INCUBATION. Complete 09/24/25 20:40 Nose MRSA Screen - Final Complete 09/24/25 20:25 Urine - Yap Port Urine Culture - Final Complete 09/22/25 07:45 Stool Clostridium difficile Toxin Assay - Final Complete Problem List/Assessment/Plan Problem List/Assessment/Plan Neurology # metabolic/uremic encephalopathy likely due to sepsis and uremia, hypernatremia, -improved Head CT: No acute pathology # mechanical fall Head CT: No acute intracranial abnormality. Cardiology # shock, likely septic shock -improved - off pressors # hypertension -currently patient is not on antihypertensive # NSTEMI type 2 likely due to shock/SWATI Monitor Infectious disease # sepsis with septic shock likely due to UTI/wound infection -wound culture: Proteus mirabilis blood culture, : Repeat blood culture no growth urine culture : No growth -continue P.O Levaquin 500 mg daily, fluconazole 200 mg daily # multiple wound infection # ulcerative wound infection on right lower abdominal quadrant -wound culture: Proteus mirabilis - continue P.O Levaquin 500 mg daily, fluconazole 200 mg daily -fluconazole 200 mg daily Endocrine # diabetes mellitus type 2 Sliding scale insulin Nephrology # SWATI likely due to sepsis, unknown baseline function -nephrology on board -Avoid nephrotoxic drugs -monitor # hyperkalemia Corrected #hypokalemia -corrected with IV potassium -Monitor BMP # hypernatremia, Likely acute, improved # Probable right adrenal myelolipoma Seen on CT GI # GI bleed -FOBT positive GI on board on protonix po # mild transaminitis likely due to shock will monitor Hematology oncology # Anemia most likely iron deficiency # thrombocytopenia likely due to sepsis Monitor # coagulopathy likely due to sepsis Monitor Urology # complicated UTI -Abx Endocrine # Morbid Obesity -will skilled nursing facility counselor on weight loss once more 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 Correa. Plan discussed with: Patient My Orders My Orders Orders - MARVEL TOBAR RESIDENT Procedure Category Date Status Time R Wrist 2 View Xray XY 10/06/25 Resulted 10:22 Transfer Orders XFER 10/06/25 Transmitted 16:30 Discharge DISCHARGE 10/07/25 Transmitted 08:33 Dietary Evaluation Review Comments: Nutrition Recommendation: 1) Advance diet as medically feasible 2) Clem 1 pk daily, nephro-dale 1 tab daily 3) Ensure clear 240ml TID 4) Monitor PO intake, lab values, weight trend, and I/O Expected Outcomes/Goals: Wound to improve GI symptoms to improve Intake to meet >75% estimated needs Lab values to improve FU 2-3 days Date of Service: Oct 07, 2025 Billing Provider: BEATRIZ CORREA MD Common Visit Codes: [id number] INP/OBS CARE(HIGH) MARVEL TOBAR RESIDENT Oct 07, 2025 09:18 BEATRIZ CORREA MD Oct 08, 2025 15:32
[2025-10-08 01:24] VITALS: BP 94/57; PULSE 91; RESP 18; TEMP 98; O2SAT 96
[2025-10-08 05:00] VITALS: BP 91/66; PULSE 89; RESP 18; TEMP 98.3; O2SAT 96
[2025-10-08 09:00] VITALS: BP_SYST 112; BP_SYST 123; BP_DIAS 71; BP_DIAS 72; PULSE 70; PULSE 93; RESP 20; RESP 22; TEMP 98.7; TEMP 98.8; O2SAT 93; O2SAT 96
--- NOTE | 2025-10-08 10:44 | DVHPNRES ---
Progress Note Date Seen: Oct 08, 2025 Resident Creating Document: MARVEL TOBAR RESIDENT Has the PT tested + for MRSA If YES, has PT been informed?: No Medical Necessity Reason Pt with a Central, PICC or Fol: Yes The following are medically ne: Yap Catheter Subjective Review of Systems Patient seen and examined bedside Patient is alert and oriented Swallow evaluation done, Patient is tolerating a soft mechanical diet Patient is working with PT, patient was out of bed to the but did not walk No nausea vomiting or active upper GI bleeding Waiting for SNF placement. Objective vital signs Vital Sign Date Time Temp Pulse Resp B/P (MAP) Pulse Ox O2 Delivery O2 Flow Rate FiO2 10/08/25 09:00 98.8 93 22 112/72 (85) 96 98.8 10/07/25 20:00 Room Air* 0 21 Total Intake and Output 10/07/25 10/07/25 10/08/25 15:00 23:00 07:00 Intake Total 800 ml Output Total 1200 ml Balance -400 ml medications Current Medications Medications Dose Ordered Sig/Merry Route Start Time Stop Time Status Last Admin Dose Admin Ondansetron HCl 4 mg Q4HP PRN IV 09/21/25 19:45 Morphine Sulfate 2 mg Q30M PRN IV 09/21/25 19:45 UNV Loperamide HCl 2 mg PRN PRN PO 09/28/25 22:30 Pantoprazole Sodium 40 mg BID@0600,1700 PO 09/30/25 17:00 10/07/25 16:19 40 MG Levofloxacin 500 mg DAILY PO 10/02/25 10:00 10/08/25 09:39 500 MG Fluconazole 200 mg DAILY PO 10/02/25 10:00 10/08/25 09:39 200 MG Acetaminophen 650 mg Q6HP PRN PO 10/05/25 14:45 10/08/25 01:48 650 MG Acetaminophen/ Hydrocodone Bitart 1 tab Q8HPRN PRN PO 10/06/25 09:30 Examination General Appearance: Alert, Oriented X3, Cooperative, No acute distress HEENT: EOMI Respiratory: Clear to auscultation, Normal air movement Cardiovascular: Regular rate, Normal S1, Normal S2 Abdominal: Normal bowel sounds, multiple striae/present on the abdomen, 2 cm deep ulcerative wound present on the right lower quadrant, sacral ulcer stage II present on admission, multiple purple color macular rash present on lower extremity and arm Extremities: No cyanosis, No edema, Normal pulses, No tenderness/swelling Skin: No rashes, No breakdown Neuro: Alert and oriented laboratory and microbiology Laboratory Tests 10/05/25 08:21 10/05/25 04:40 Test 10/05/25 04:40 Range/Units Serum Glucose 80 74-106 mg/dL Microbiology Date/Time Source Procedure Growth Status 09/24/25 23:25 Blood Blood Culture - Final NO GROWTH AFTER 5 DAYS OF INCUBATION. Complete 09/24/25 20:40 Nose MRSA Screen - Final Complete 09/24/25 20:25 Urine - Yap Port Urine Culture - Final Complete 09/22/25 07:45 Stool Clostridium difficile Toxin Assay - Final Complete Problem List/Assessment/Plan Problem List/Assessment/Plan Neurology # metabolic/uremic encephalopathy likely due to sepsis and uremia, hypernatremia, -improved Head CT: No acute pathology # mechanical fall Head CT: No acute intracranial abnormality. Cardiology # shock, likely septic shock -improved - off pressors # hypertension -currently patient is not on antihypertensive # NSTEMI type 2 likely due to shock/SWATI Monitor Infectious disease # sepsis with septic shock likely due to UTI/wound infection -wound culture: Proteus mirabilis blood culture, : Repeat blood culture no growth urine culture : No growth -continue P.O Levaquin 500 mg daily, fluconazole 200 mg daily # multiple wound infection # ulcerative wound infection on right lower abdominal quadrant -wound culture: Proteus mirabilis - continue P.O Levaquin 500 mg daily, fluconazole 200 mg daily -fluconazole 200 mg daily Endocrine # diabetes mellitus type 2 Sliding scale insulin Nephrology # SWATI likely due to sepsis, unknown baseline function -nephrology on board -Avoid nephrotoxic drugs -monitor # hyperkalemia Corrected #hypokalemia -corrected with IV potassium -Monitor BMP # hypernatremia, Likely acute, improved # Probable right adrenal myelolipoma Seen on CT GI # GI bleed -FOBT positive GI on board on protonix po # mild transaminitis likely due to shock will monitor Hematology oncology # Anemia most likely iron deficiency # thrombocytopenia likely due to sepsis Monitor # coagulopathy likely due to sepsis Monitor Urology # complicated UTI -Abx Endocrine # Morbid Obesity -will counsellors on weight loss once more 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 Correa. Plan discussed with: Patient Dietary Evaluation Review Comments: Nutrition Recommendation: 1) Advance diet as medically feasible 2) Clem 1 pk daily, nephro-dale 1 tab daily 3) Ensure clear 240ml TID 4) Monitor PO intake, lab values, weight trend, and I/O Expected Outcomes/Goals: Wound to improve GI symptoms to improve Intake to meet >75% estimated needs Lab values to improve FU 2-3 days Date of Service: Oct 08, 2025 Billing Provider: BEATRIZ CORREA MD Common Visit Codes: [id number] INP/OBS CARE(HIGH) MARVEL TOBAR RESIDENT Oct 08, 2025 10:44 BEATRIZ CORREA MD Oct 09, 2025 11:37
[2025-10-08 12:43] VITALS: BP 107/66; PULSE 98; RESP 20; TEMP 98.1; O2SAT 96
[2025-10-08] MEDS: LOPERAMIDE HCL 2 MG CAP/TAB PO PRN (15:40)
[2025-10-08 16:28] VITALS: BP 127/68; PULSE 113; RESP 20; TEMP 98.7; O2SAT 97
[2025-10-08 21:00] VITALS: BP 97/64; PULSE 101; RESP 18; TEMP 98.1; O2SAT 96
[2025-10-09] VITALS (7 sets, daily range): BP systolic 95–119; BP diastolic 54–69; PULSE 91–100; RESP 16–18; TEMP 98.3–99.5; O2SAT 94–97
--- NOTE | 2025-10-09 10:18 | DVHPNRES ---
Progress Note Date Seen: Oct 09, 2025 Resident Creating Document: MARVEL TOBAR RESIDENT Has the PT tested + for MRSA If YES, has PT been informed?: No Medical Necessity Reason Pt with a Central, PICC or Fol: Yes The following are medically ne: Yap Catheter Subjective Review of Systems Patient seen and examined bedside Patient is alert and oriented Swallow evaluation done, Patient is tolerating a soft mechanical diet Patient is working with PT, patient was out of bed to the but did not walk No nausea vomiting or active upper GI bleeding Waiting for SNF placement. Objective vital signs Vital Sign Date Time Temp Pulse Resp B/P (MAP) Pulse Ox O2 Delivery O2 Flow Rate FiO2 10/09/25 09:00 99.2 95 17 119/69 (86) 94 99.2 10/09/25 08:00 Room Air* 0 21 Total Intake and Output 10/08/25 10/08/25 10/09/25 15:00 23:00 07:00 Intake Total 1060 ml 1040 ml Output Total 1275 ml 1150 ml Balance -215 ml -110 ml medications Current Medications Medications Dose Ordered Sig/Merry Route Start Time Stop Time Status Last Admin Dose Admin Ondansetron HCl 4 mg Q4HP PRN IV 09/21/25 19:45 Morphine Sulfate 2 mg Q30M PRN IV 09/21/25 19:45 UNV Loperamide HCl 2 mg PRN PRN PO 09/28/25 22:30 10/08/25 15:40 2 MG Pantoprazole Sodium 40 mg BID@0600,1700 PO 09/30/25 17:00 10/09/25 05:38 40 MG Levofloxacin 500 mg DAILY PO 10/02/25 10:00 10/09/25 09:37 500 MG Fluconazole 200 mg DAILY PO 10/02/25 10:00 10/09/25 09:37 200 MG Acetaminophen 650 mg Q6HP PRN PO 10/05/25 14:45 10/09/25 05:38 650 MG Acetaminophen/ Hydrocodone Bitart 1 tab Q8HPRN PRN PO 10/06/25 09:30 Examination General Appearance: Alert, Oriented X3, Cooperative, No acute distress HEENT: EOMI Respiratory: Clear to auscultation, Normal air movement Cardiovascular: Regular rate, Normal S1, Normal S2 Abdominal: Normal bowel sounds, multiple striae/present on the abdomen, 2 cm deep ulcerative wound present on the right lower quadrant, sacral ulcer stage II present on admission, multiple purple color macular rash present on lower extremity and arm Extremities: No cyanosis, No edema, Normal pulses, No tenderness/swelling Skin: No rashes, No breakdown Neuro: Alert and oriented laboratory and microbiology Laboratory Tests 10/05/25 08:21 10/05/25 04:40 Test 10/05/25 04:40 Range/Units Serum Glucose 80 74-106 mg/dL Microbiology Date/Time Source Procedure Growth Status 09/24/25 23:25 Blood Blood Culture - Final NO GROWTH AFTER 5 DAYS OF INCUBATION. Complete 09/24/25 20:40 Nose MRSA Screen - Final Complete 09/24/25 20:25 Urine - Yap Port Urine Culture - Final Complete 09/22/25 07:45 Stool Clostridium difficile Toxin Assay - Final Complete Problem List/Assessment/Plan Problem List/Assessment/Plan Neurology # metabolic/uremic encephalopathy likely due to sepsis and uremia, hypernatremia, -improved Head CT: No acute pathology # mechanical fall Head CT: No acute intracranial abnormality. Cardiology # shock, likely septic shock -improved - off pressors # hypertension -currently patient is not on antihypertensive # NSTEMI type 2 likely due to shock/SWATI Monitor Infectious disease # sepsis with septic shock likely due to UTI/wound infection -wound culture: Proteus mirabilis blood culture, : Repeat blood culture no growth urine culture : No growth -continue P.O Levaquin 500 mg daily, fluconazole 200 mg daily # multiple wound infection # ulcerative wound infection on right lower abdominal quadrant -wound culture: Proteus mirabilis - continue P.O Levaquin 500 mg daily, fluconazole 200 mg daily -fluconazole 200 mg daily Endocrine # diabetes mellitus type 2 Sliding scale insulin Nephrology # SWATI likely due to sepsis, unknown baseline function -nephrology on board -Avoid nephrotoxic drugs -monitor # hyperkalemia Corrected #hypokalemia -corrected with IV potassium -Monitor BMP # hypernatremia, Likely acute, improved # Probable right adrenal myelolipoma Seen on CT GI # GI bleed -FOBT positive GI on board on protonix po # mild transaminitis likely due to shock will monitor Hematology oncology # Anemia most likely iron deficiency # thrombocytopenia likely due to sepsis Monitor # coagulopathy likely due to sepsis Monitor Urology # complicated UTI -Abx Endocrine # Morbid Obesity -will juvenile counselor on weight loss once more 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 Bee. Plan discussed with: Patient Dietary Evaluation Review Comments: Nutrition Recommendation: 1) Advance diet as medically feasible 2) Clem 1 pk daily, nephro-dale 1 tab daily 3) Ensure clear 240ml TID 4) Monitor PO intake, lab values, weight trend, and I/O Expected Outcomes/Goals: Wound to improve GI symptoms to improve Intake to meet >75% estimated needs Lab values to improve FU 2-3 days MARVEL TOBAR RESIDENT Oct 09, 2025 10:18
--- NOTE | 2025-10-09 14:36 | DVHPN2 ---
Progress Note Date Seen: Oct 09, 2025 Resident Creating Document: CAITY VÁSQUEZ RESIDENT Has the PT tested + for MRSA If YES, has PT been informed?: No Medical Necessity Reason Pt with a Central, PICC or Fol: Yes The following are medically ne: Yap Catheter Subjective Review of Systems Reports constipation, straining bowel movement. KUB ordered. Objective vital signs Vital Sign Date Time Temp Pulse Resp B/P (MAP) Pulse Ox O2 Delivery O2 Flow Rate FiO2 10/09/25 12:32 98.5 95 18 101/69 (80) 94 98.5 10/09/25 08:00 Room Air* 0 21 Total Intake and Output 10/08/25 10/08/25 10/09/25 15:00 23:00 07:00 Intake Total 1060 ml 1040 ml Output Total 1275 ml 1150 ml Balance -215 ml -110 ml medications Current Medications Medications Dose Ordered Sig/Merry Route Start Time Stop Time Status Last Admin Dose Admin Ondansetron HCl 4 mg Q4HP PRN IV 09/21/25 19:45 Morphine Sulfate 2 mg Q30M PRN IV 09/21/25 19:45 UNV Loperamide HCl 2 mg PRN PRN PO 09/28/25 22:30 10/08/25 15:40 2 MG Pantoprazole Sodium 40 mg BID@0600,1700 PO 09/30/25 17:00 10/09/25 05:38 40 MG Levofloxacin 500 mg DAILY PO 10/02/25 10:00 10/09/25 09:37 500 MG Fluconazole 200 mg DAILY PO 10/02/25 10:00 10/09/25 09:37 200 MG Acetaminophen 650 mg Q6HP PRN PO 10/05/25 14:45 10/09/25 05:38 650 MG Acetaminophen/ Hydrocodone Bitart 1 tab Q8HPRN PRN PO 10/06/25 09:30 Examination My PEGen - no pallor, no scleral icterus Skin - Patients skin is warm and dry. HEENT - normocephalic, atraumatic, dry mucous membranes. Neck - supple, no lymphadenopathy Left breast shows areas of ecchymosis bruising some scar and interested scabs Patient stated she had left breast injury when she fell to three weeks ago Pulmonary - B/L decreased breath sounds cardiovascular - regular S1,S2 heard GI - soft abdomen with tenderness to palpation in the lower quadrants with a visible wounds in the lower abdominal quadrant. Bowel sounds normoactive. Neurological - Patient is alert and oriented x2, following commands laboratory and microbiology Laboratory Tests 10/05/25 08:21 10/05/25 04:40 Test 10/05/25 04:40 Range/Units Serum Glucose 80 74-106 mg/dL Microbiology Date/Time Source Procedure Growth Status 09/24/25 23:25 Blood Blood Culture - Final NO GROWTH AFTER 5 DAYS OF INCUBATION. Complete 09/24/25 20:40 Nose MRSA Screen - Final Complete 09/24/25 20:25 Urine - Yap Port Urine Culture - Final Complete 09/22/25 07:45 Stool Clostridium difficile Toxin Assay - Final Complete Labs and/or images reviewed: Labs reviewed by me, Image(s) reviewed by me Problem List/Assessment/Plan Problem List/Assessment/Plan Positive for occult blood Anemia likely chronic disease septic shock likely due to UTI/wound infection multiple wound infection Wound infection left breast Diabetes mellitus type 2 SWATI likely due to sepsis, unknown baseline function Plan: Recommendation: Patient being dc'ed to fdc facility IV antibiotics discontinued, started p.o. Levaquin 500 mg daily, fluconazole 200 mg daily Lactulose 30 mL p.o. The patient appears to be hemodynamically stable no nausea vomiting no active GI bleeding She is tolerating diet ; We will maintain her on Protonix 40 mg p.o. daily She was advised to follow up in my office in 4-6 weeks to discuss outpatient elective panendoscopy once cleared by Cardiology Discharge planning to SNF Plan Discussed with Dr. Cross Plan discussed with: Patient Dietary Evaluation Review Comments: Nutrition Recommendation: 1) Advance diet as medically feasible 2) Clem 1 pk daily, nephro-dale 1 tab daily 3) Ensure clear 240ml TID 4) Monitor PO intake, lab values, weight trend, and I/O Expected Outcomes/Goals: Wound to improve GI symptoms to improve Intake to meet >75% estimated needs Lab values to improve FU 2-3 days CAITY VÁSQUEZ RESIDENT Oct 09, 2025 14:36
[2025-10-09] MEDS: LACTULOSE 20Gm/30ML SOLN PO ONE (15:30)
[2025-10-09] MEDS: NAPROXEN 500 MG TAB PO PRN (16:35)
[2025-10-10] VITALS (7 sets, daily range): BP systolic 99–108; BP diastolic 59–68; PULSE 90–102; RESP 18–20; TEMP 97.7–99; O2SAT 95–97
--- NOTE | 2025-10-10 11:02 | DVHPNRES ---
Progress Note Date Seen: Oct 10, 2025 Resident Creating Document: MARVEL TOBAR RESIDENT Has the PT tested + for MRSA If YES, has PT been informed?: No Medical Necessity Reason Pt with a Central, PICC or Fol: Yes The following are medically ne: Yap Catheter Subjective Review of Systems Patient seen and examined bedside Patient is alert and oriented Swallow evaluation done, Patient is tolerating a soft mechanical diet Patient is working with PT, patient was out of bed to the but did not walk No nausea vomiting or active upper GI bleeding Waiting for SNF placement. Objective vital signs Vital Sign Date Time Temp Pulse Resp B/P (MAP) Pulse Ox O2 Delivery O2 Flow Rate FiO2 10/10/25 09:00 98.3 102 20 108/67 (81) 95 98.3 10/09/25 20:00 Room Air* 0 21 medications Current Medications Medications Dose Ordered Sig/Merry Route Start Time Stop Time Status Last Admin Dose Admin Ondansetron HCl 4 mg Q4HP PRN IV 09/21/25 19:45 Morphine Sulfate 2 mg Q30M PRN IV 09/21/25 19:45 UNV Loperamide HCl 2 mg PRN PRN PO 09/28/25 22:30 10/08/25 15:40 2 MG Pantoprazole Sodium 40 mg BID@0600,1700 PO 09/30/25 17:00 10/10/25 06:17 40 MG Levofloxacin 500 mg DAILY PO 10/02/25 10:00 10/10/25 10:21 500 MG Fluconazole 200 mg DAILY PO 10/02/25 10:00 10/10/25 10:21 200 MG Acetaminophen 650 mg Q6HP PRN PO 10/05/25 14:45 Hold 10/09/25 05:38 650 MG Acetaminophen/ Hydrocodone Bitart 1 tab Q8HPRN PRN PO 10/06/25 09:30 Hold Naproxen 250 mg Q8HP PRN PO 10/09/25 15:15 10/10/25 10:22 250 MG Examination General Appearance: Alert, Oriented X3, Cooperative, No acute distress HEENT: EOMI Respiratory: Clear to auscultation, Normal air movement Cardiovascular: Regular rate, Normal S1, Normal S2 Abdominal: Normal bowel sounds, multiple striae/present on the abdomen, 2 cm deep ulcerative wound present on the right lower quadrant, sacral ulcer stage II present on admission, multiple purple color macular rash present on lower extremity and arm Extremities: No cyanosis, No edema, Normal pulses, No tenderness/swelling Skin: No rashes, No breakdown Neuro: Alert and oriented laboratory and microbiology Laboratory Tests 10/05/25 08:21 10/05/25 04:40 Test 10/05/25 04:40 Range/Units Serum Glucose 80 74-106 mg/dL Microbiology Date/Time Source Procedure Growth Status 09/24/25 23:25 Blood Blood Culture - Final NO GROWTH AFTER 5 DAYS OF INCUBATION. Complete 09/24/25 20:40 Nose MRSA Screen - Final Complete 09/24/25 20:25 Urine - Yap Port Urine Culture - Final Complete 09/22/25 07:45 Stool Clostridium difficile Toxin Assay - Final Complete Problem List/Assessment/Plan Problem List/Assessment/Plan Neurology # metabolic/uremic encephalopathy likely due to sepsis and uremia, hypernatremia, -improved Head CT: No acute pathology # mechanical fall Head CT: No acute intracranial abnormality. Cardiology # shock, likely septic shock -improved - off pressors # hypertension -currently patient is not on antihypertensive # NSTEMI type 2 likely due to shock/SWATI Monitor Infectious disease # sepsis with septic shock likely due to UTI/wound infection -wound culture: Proteus mirabilis blood culture, : Repeat blood culture no growth urine culture : No growth -continue P.O Levaquin 500 mg daily, fluconazole 200 mg daily # multiple wound infection # ulcerative wound infection on right lower abdominal quadrant -wound culture: Proteus mirabilis - continue P.O Levaquin 500 mg daily, fluconazole 200 mg daily -fluconazole 200 mg daily Endocrine # diabetes mellitus type 2 Sliding scale insulin Nephrology # SWATI likely due to sepsis, unknown baseline function -nephrology on board -Avoid nephrotoxic drugs -monitor # hyperkalemia Corrected #hypokalemia -corrected with IV potassium -Monitor BMP # hypernatremia, Likely acute, improved # Probable right adrenal myelolipoma Seen on CT GI # GI bleed -FOBT positive GI on board on protonix po # mild transaminitis likely due to shock will monitor Hematology oncology # Anemia most likely iron deficiency # thrombocytopenia likely due to sepsis Monitor # coagulopathy likely due to sepsis Monitor Urology # complicated UTI -Abx Endocrine # Morbid Obesity -will pet adoption counselor on weight loss once more 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 Bee. Plan discussed with: Patient My Orders My Orders Orders - MARVEL TOBAR RESIDENT Procedure Category Date Status Time Naproxen Tablet PHA 10/09/25 In Process (Naprosyn Tablet) 15:15 Dietary Evaluation Review Comments: Nutrition Recommendation: 1) Advance diet as medically feasible 2) Clem 1 pk daily, nephro-dale 1 tab daily 3) Ensure clear 240ml TID 4) Monitor PO intake, lab values, weight trend, and I/O Expected Outcomes/Goals: Wound to improve GI symptoms to improve Intake to meet >75% estimated needs Lab values to improve FU 2-3 days MARVEL TOBAR RESIDENT Oct 10, 2025 11:02
--- NOTE | 2025-10-10 14:42 | DVHPN2 ---
Progress Note Date Seen: Oct 10, 2025 Resident Creating Document: CAITY VÁSQUEZ RESIDENT Has the PT tested + for MRSA If YES, has PT been informed?: No Medical Necessity Reason Pt with a Central, PICC or Fol: Yes The following are medically ne: Yap Catheter Subjective Review of Systems Reports Pain on defecation. KUB ordered. Lactulose daily. Psyllium. Objective vital signs Vital Sign Date Time Temp Pulse Resp B/P (MAP) Pulse Ox O2 Delivery O2 Flow Rate FiO2 10/10/25 09:00 98.3 102 20 108/67 (81) 95 98.3 10/10/25 08:00 Room Air* 0 21 medications Current Medications Medications Dose Ordered Sig/Merry Route Start Time Stop Time Status Last Admin Dose Admin Ondansetron HCl 4 mg Q4HP PRN IV 09/21/25 19:45 Morphine Sulfate 2 mg Q30M PRN IV 09/21/25 19:45 UNV Loperamide HCl 2 mg PRN PRN PO 09/28/25 22:30 10/08/25 15:40 2 MG Pantoprazole Sodium 40 mg BID@0600,1700 PO 09/30/25 17:00 10/10/25 06:17 40 MG Levofloxacin 500 mg DAILY PO 10/02/25 10:00 10/10/25 10:21 500 MG Fluconazole 200 mg DAILY PO 10/02/25 10:00 10/10/25 10:21 200 MG Acetaminophen 650 mg Q6HP PRN PO 10/05/25 14:45 Hold 10/09/25 05:38 650 MG Acetaminophen/ Hydrocodone Bitart 1 tab Q8HPRN PRN PO 10/06/25 09:30 Hold Naproxen 250 mg Q8HP PRN PO 10/09/25 15:15 10/10/25 10:22 250 MG Examination My PEGen - no pallor, no scleral icterus Skin - Patients skin is warm and dry. HEENT - normocephalic, atraumatic, dry mucous membranes. Neck - supple, no lymphadenopathy Left breast shows areas of ecchymosis bruising some scar and interested scabs Patient stated she had left breast injury when she fell to three weeks ago Pulmonary - B/L decreased breath sounds cardiovascular - regular S1,S2 heard GI - soft abdomen with tenderness to palpation in the lower quadrants with a visible wounds in the lower abdominal quadrant. Bowel sounds normoactive. Neurological - Patient is alert and oriented x2, following commands laboratory and microbiology Laboratory Tests 10/05/25 08:21 10/05/25 04:40 Test 10/05/25 04:40 Range/Units Serum Glucose 80 74-106 mg/dL Microbiology Date/Time Source Procedure Growth Status 09/24/25 23:25 Blood Blood Culture - Final NO GROWTH AFTER 5 DAYS OF INCUBATION. Complete 09/24/25 20:40 Nose MRSA Screen - Final Complete 09/24/25 20:25 Urine - Yap Port Urine Culture - Final Complete 09/22/25 07:45 Stool Clostridium difficile Toxin Assay - Final Complete Labs and/or images reviewed: Labs reviewed by me, Image(s) reviewed by me Problem List/Assessment/Plan Problem List/Assessment/Plan Positive for occult blood Anemia likely chronic disease septic shock likely due to UTI/wound infection multiple wound infection Wound infection left breast Diabetes mellitus type 2 SWATI likely due to sepsis, unknown baseline function Plan: Recommendation: Patient being dc'ed to long-term facility Follow up KUB Metamucil daily IV antibiotics discontinued, started p.o. Levaquin 500 mg daily, fluconazole 200 mg daily The patient appears to be hemodynamically stable no nausea vomiting no active GI bleeding She is tolerating diet ; We will maintain her on Protonix 40 mg p.o. daily She was advised to follow up in my office in 4-6 weeks to discuss outpatient elective panendoscopy once cleared by Cardiology Discharge planning to SNF Plan Discussed with Dr. Cross Plan discussed with: Patient Dietary Evaluation Review Comments: Nutrition Recommendation: 1) Advance diet as medically feasible 2) Clem 1 pk daily, nephro-dale 1 tab daily 3) Ensure clear 240ml TID 4) Monitor PO intake, lab values, weight trend, and I/O Expected Outcomes/Goals: Wound to improve GI symptoms to improve Intake to meet >75% estimated needs Lab values to improve FU 2-3 days CAITY VÁSQUEZ RESIDENT Oct 10, 2025 14:42
[2025-10-10] MEDS: DICYCLOMINE HCL 10 MG CAP PO ONE (16:45)
[2025-10-10] MEDS: PSYLLIUM PWD 5.8GM PKG PO ONE (16:45)
--- NOTE | 2025-10-10 18:48 | DVH ---
Date: 10/10/2025 05:56 PM Examination: XY KUB ABDOMEN SINGLE VIEW History: Abdominal pain Comparison: None TECHNIQUE: Frontal views of the abdomen was obtained. FINDINGS: Bowel gas pattern is unremarkable. No abnormally distended bowel loops apparent at this time. Consider CT for further evaluation The lung bases are unremarkable. No acute osseous abnormality identified. IMPRESSION: 1. Nonobstructive bowel gas pattern. 2. Consider CT abdomen and pelvis for further evaluation.
[2025-10-11 01:00] VITALS: BP 106/60; PULSE 83; RESP 20; TEMP 79.9; O2SAT 97
[2025-10-11 04:43] VITALS: BP 102/64; PULSE 91; RESP 19; TEMP 98.7; O2SAT 98
[2025-10-11 08:00] VITALS: PULSE 76; RESP 18; O2SAT 97
[2025-10-11 09:00] VITALS: BP 105/65; PULSE 98; RESP 18; TEMP 99.1; O2SAT 96
--- NOTE | 2025-10-11 09:00 | DVHPNRES ---
Progress Note Date Seen: Oct 11, 2025 Resident Creating Document: MARVEL TOBAR RESIDENT Has the PT tested + for MRSA If YES, has PT been informed?: No Medical Necessity Reason Pt with a Central, PICC or Fol: Yes The following are medically ne: Yap Catheter Subjective Review of Systems Patient seen and examined bedside Patient is alert and oriented Swallow evaluation done, Patient is tolerating a soft mechanical diet Patient is working with PT, patient was out of bed to the but did not walk No nausea vomiting or active upper GI bleeding Waiting for SNF placement. Objective vital signs Vital Sign Date Time Temp Pulse Resp B/P (MAP) Pulse Ox O2 Delivery O2 Flow Rate FiO2 10/11/25 08:00 76 18 97 Room Air* 0 21 10/11/25 04:43 98.7 102/64 (77) 98.7 medications Current Medications Medications Dose Ordered Sig/Merry Route Start Time Stop Time Status Last Admin Dose Admin Ondansetron HCl 4 mg Q4HP PRN IV 09/21/25 19:45 Morphine Sulfate 2 mg Q30M PRN IV 09/21/25 19:45 UNV Loperamide HCl 2 mg PRN PRN PO 09/28/25 22:30 10/08/25 15:40 2 MG Pantoprazole Sodium 40 mg BID@0600,1700 PO 09/30/25 17:00 10/11/25 05:19 40 MG Levofloxacin 500 mg DAILY PO 10/02/25 10:00 10/10/25 10:21 500 MG Fluconazole 200 mg DAILY PO 10/02/25 10:00 10/10/25 10:21 200 MG Acetaminophen 650 mg Q6HP PRN PO 10/05/25 14:45 Hold 10/09/25 05:38 650 MG Acetaminophen/ Hydrocodone Bitart 1 tab Q8HPRN PRN PO 10/06/25 09:30 Hold Naproxen 250 mg Q8HP PRN PO 10/09/25 15:15 10/10/25 19:12 250 MG Psyllium Hydrophilic Mucilloid 1 pkg DAILY PO 10/11/25 10:00 Examination General Appearance: Alert, Oriented X3, Cooperative, No acute distress HEENT: EOMI Respiratory: Clear to auscultation, Normal air movement Cardiovascular: Regular rate, Normal S1, Normal S2 Abdominal: Normal bowel sounds, multiple striae/present on the abdomen, 2 cm deep ulcerative wound present on the right lower quadrant, sacral ulcer stage II present on admission, multiple purple color macular rash present on lower extremity and arm Extremities: No cyanosis, No edema, Normal pulses, No tenderness/swelling Skin: No rashes, No breakdown Neuro: Alert and oriented. laboratory and microbiology Laboratory Tests 10/05/25 08:21 10/05/25 04:40 Test 10/05/25 04:40 Range/Units Serum Glucose 80 74-106 mg/dL Microbiology Date/Time Source Procedure Growth Status 09/24/25 23:25 Blood Blood Culture - Final NO GROWTH AFTER 5 DAYS OF INCUBATION. Complete 09/24/25 20:40 Nose MRSA Screen - Final Complete 09/24/25 20:25 Urine - Yap Port Urine Culture - Final Complete 09/22/25 07:45 Stool Clostridium difficile Toxin Assay - Final Complete Problem List/Assessment/Plan Problem List/Assessment/Plan Neurology # metabolic/uremic encephalopathy likely due to sepsis and uremia, hypernatremia, -improved Head CT: No acute pathology # mechanical fall Head CT: No acute intracranial abnormality. Cardiology # shock, likely septic shock -improved - off pressors # hypertension -currently patient is not on antihypertensive # NSTEMI type 2 likely due to shock/SWATI Monitor Infectious disease # sepsis with septic shock likely due to UTI/wound infection -wound culture: Proteus mirabilis blood culture, : Repeat blood culture no growth urine culture : No growth -continue P.O Levaquin 500 mg daily, fluconazole 200 mg daily # multiple wound infection # ulcerative wound infection on right lower abdominal quadrant -wound culture: Proteus mirabilis - continue P.O Levaquin 500 mg daily, fluconazole 200 mg daily -fluconazole 200 mg daily Endocrine # diabetes mellitus type 2 Sliding scale insulin Nephrology # SWATI likely due to sepsis, unknown baseline function -nephrology on board -Avoid nephrotoxic drugs -monitor # hyperkalemia Corrected #hypokalemia -corrected with IV potassium -Monitor BMP # hypernatremia, Likely acute, improved # Probable right adrenal myelolipoma Seen on CT GI # GI bleed -FOBT positive GI on board on protonix po # mild transaminitis likely due to shock will monitor Hematology oncology # Anemia most likely iron deficiency # thrombocytopenia likely due to sepsis Monitor # coagulopathy likely due to sepsis Monitor Urology # complicated UTI -Abx Endocrine # Morbid Obesity -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 Bee. Plan discussed with: Patient Dietary Evaluation Review Comments: Nutrition Recommendation: 1) Advance diet as medically feasible 2) Clem 1 pk daily, nephro-dale 1 tab daily 3) Ensure clear 240ml TID 4) Monitor PO intake, lab values, weight trend, and I/O Expected Outcomes/Goals: Wound to improve GI symptoms to improve Intake to meet >75% estimated needs Lab values to improve FU 2-3 days MARVEL TOBAR RESIDENT Oct 11, 2025 09:00
[2025-10-11] MEDS: PSYLLIUM PWD 5.8GM PKG PO SCH (09:41)
[2025-10-11 13:00] VITALS: BP 135/77; PULSE 100; RESP 20; TEMP 98.6; O2SAT 97
== END 2025-10-11 15:30 | DRG 720 ==
LOC: ER 11:20 → EDBD 11:20 → OVERFLOW 19:35 → ICU WEST 19:40 → TELE-WESTW 09-27 17:00 → WEST WING 10-06 23:58
PROVIDERS: ADMIT Internal Medicine; ATTEND Internal Medicine
PROC: 02HV33Z Insertion of Infusion Device into Superior Vena Cava, Percutaneous Approach (ICD-10-PCS; principal; 2025-09-21)
PROC: B548ZZA Ultrasonography of Superior Vena Cava, Guidance (ICD-10-PCS; 2025-09-21)
PROC: 05H933Z Insertion of Infusion Device into Right Brachial Vein, Percutaneous Approach (ICD-10-PCS; 2025-09-28)
PROC: B54MZZA Ultrasonography of Right Upper Extremity Veins, Guidance (ICD-10-PCS; 2025-09-28)
PROC: 05HF33Z Insertion of Infusion Device into Left Cephalic Vein, Percutaneous Approach (ICD-10-PCS; 2025-09-30)
PROC: B54NZZA Ultrasonography of Left Upper Extremity Veins, Guidance (ICD-10-PCS; 2025-09-30)
DX: A41.59 Other Gram-negative sepsis (principal); R65.21 Severe sepsis with septic shock; N17.0 Acute kidney failure with tubular necrosis; G93.41 Metabolic encephalopathy; M62.82 Rhabdomyolysis; D68.9 Coagulation defect, unspecified; E87.0 Hyperosmolality and hypernatremia; E87.4 Mixed disorder of acid-base balance; D69.6 Thrombocytopenia, unspecified; D69.59 Other secondary thrombocytopenia; N39.0 Urinary tract infection, site not specified; K92.2 Gastrointestinal hemorrhage, unspecified; E11.9 Type 2 diabetes mellitus without complications; E66.01 Morbid (severe) obesity due to excess calories; I12.9 Hypertensive chronic kidney disease with stage 1 through stage 4 chronic kidney disease, or unspecified chronic kidney disease; D50.9 Iron deficiency anemia, unspecified; N18.9 Chronic kidney disease, unspecified; I21.A1 Myocardial infarction type 2; E86.0 Dehydration; K52.9 Noninfective gastroenteritis and colitis, unspecified; E87.5 Hyperkalemia; D17.9 Benign lipomatous neoplasm, unspecified; E87.6 Hypokalemia; D17.79 Benign lipomatous neoplasm of other sites; R74.01 Elevation of levels of liver transaminase levels; S21.002A Unspecified open wound of left breast, initial encounter; W18.39XA Other fall on same level, initial encounter; L98.439 Non-pressure chronic ulcer of abdomen with unspecified severity; Y93.89 Activity, other specified; Y92.89 Other specified places as the place of occurrence of the external cause; Y99.8 Other external cause status; Z90.49 Acquired absence of other specified parts of digestive tract; Z90.710 Acquired absence of both cervix and uterus; Z68.38 Body mass index [BMI] 38.0-38.9, adult; Z79.899 Other long term (current) drug therapy
CPT/HCPCS: 36415; 36556; 36600; 70450; 70551; 71045; 73020; 73100; 74018; 74176; 80048; 80053; 80069; 80202; 80307; 80320; 81001; 82270; 82533; 82550; 82570; 82805; 82962; 83605; 83735; 84100; 84132; 84156; 84295; 84300; 84443; 84478; 84484; 85025; 85610; 85730; 86850; 86900; 86901; 87040; 87077; 87081; 87086; 87186; 87205; 87493; 92610; 93005; 96365; 96375; 97110; 97116; 97163; 97530; 99291; G0378; J0131; J1815; J2248; J2470; J2543; J2704; J3480; J7060